=== PATIENT | female | born 1965 | race Caucasian/White ===

== ENCOUNTER 2021-12-04 23:59 | Inpatient (IN) ==
[2021-12-05] MEDS ORDERED: NITROGLYCERIN 0.4 MG TAB.SUBL SL ONE (00:07)
[2021-12-05 00:24] LABS: POC Calcium, Ionized 1.11 (1.16-1.32); POC Creatinine 6.9 (0.6-1.2)
[2021-12-05] MEDS: NITROGLYCERIN/D5W 25 MG/250 ML BOTTLE IV SCH (00:40)
[2021-12-05 00:43] LABS: Basophils # (Auto) 0.13 K/mcL (0.00-0.30); Basophils % (Auto) 0.7 % (0.0-2.0); Eosinophils % (Auto) 0.5 % (0.0-7.0); Hematocrit 34.8 % (34.1-44.9); Hemoglobin 10.3 g/dL (11.2-15.7); Lymphocytes # (Auto) 1.35 K/mcL (1.50-4.80); Lymphocytes % (Auto) 7.2 % (15.5-49.0); Mean Cell Volume 96.1 fL (80.0-100.0); Mean Corpuscular HGB Conc 29.6 g/dL (31.0-36.0); Mean Platelet Volume 9.8 fL (8.8-12.5); Monocytes # (Auto) 1.06 K/mcL (0.10-0.90); Monocytes % (Auto) 5.7 % (1.0-12.0); Platelet Count 320 K/mcL (140-440); RBC 3.62 M/mcL (3.59-5.38); WBC 18.7 K/mcL (4.5-11.0)
[2021-12-05] MEDS ORDERED: ASPIRIN 81 MG TAB.CHEW CHEWED ONE (00:43)
--- NOTE | 2021-12-05 02:52 | Emergency Department Note ---
SOB HPI General Chief Complaint: Shortness of Breath/Dyspnea Stated Complaint: cant breathe Time Seen by Provider: 12/05/21 00:04 Source: EMS Mode of arrival: EMS History of Present Illness HPI Narrative: Narrative: 56-year-old female end-stage renal disease on dialysis Saturday, history of opioid dependence, Crohn's disease presenting to the ED with severely worsening shortness of breath. Started earlier today but has been progressive throughout the day some intermittent wheeze and cough, no purulent sputum. No chest pain but does feel a bit tight, no new leg swelling. She is due for dialysis later today says she has not missed any dialysis. She denies any fever or URI symptoms. No new leg swelling. She was thinking she may be withdrawing from opiates. She says she used some heroin yesterday and then took Suboxone today and was worried that it may have caused some withdrawal. No nausea no vomiting no other substance use she says. EMS gave her a DuoNeb that helped a bit no other complaints. Related Data Home Medications Medication Instructions Recorded Confirmed furosemide 80 mg tablet 80 mg PO BID PRN 10/26/21 Previous Rx's Medication Instructions Recorded cholecalciferol (vitamin D3) 125 125 mcg PO QDAY #90 tabs 03/31/21 mcg (5,000 unit) tablet losartan 100 mg tablet 100 mg PO QDAY #90 tabs 03/31/21 allopurinol 100 mg tablet 100 mg PO .QOD #30 tabs 05/17/21 sevelamer carbonate 800 mg tablet 800 mg PO TIDWMEAL #90 tabs 05/23/21 (Renvela) vit B complex and vit C 1 tab PO QDAY #30 tabs 08/01/21 no.24-ferrous fum 66 mg-folic 1,000 mcg tablet (Nephron FA) amlodipine 10 mg tablet 10 mg PO QDAY HTN #30 tabs 08/15/21 hydralazine 25 mg tablet 25 mg PO BID #60 tabs 08/31/21 Allergies Allergy/AdvReac Type Severity Reaction Status Date / Time Sulfa (Sulfonamide Allergy Unknown Unknown Verified 10/26/21 14:02 Antibiotics) Review of Systems ROS ROS Narrative: Narrative: All systems ED: reviewed and negative except as stated. PFSH Narrative Patient History Narrative: Narrative: Medical/Surgical/Family History All Active Problems (Updated 12/05/21 @ 04:36 by Irving Ayala DO) Hypertensive emergency (Acute) Elevated troponin (Acute) End-stage renal disease (ESRD) (Acute) Acute respiratory failure with hypoxia (Acute) Elevated troponin (Acute) Anemia in end-stage renal disease (Acute) Hypertensive emergency (Acute) Ulcerative colitis (Chronic) Fatigue (Chronic) Body aches (Chronic) Hypertension (Chronic) Bilateral hearing loss (Chronic) Otosclerosis (Chronic) Conductive hearing loss (Chronic) Vasomotor rhinitis (Chronic) Sensorineural hearing loss (SNHL) (Chronic) ET (eustachian tube disorder) (Chronic) Pulmonary embolism (Chronic) Acute myocardial infarction (Chronic) Crohn's disease (Chronic) Secondary hyperparathyroidism of renal origin (Chronic) Vitamin D deficiency (Chronic) ESRD on hemodialysis (Chronic) Hyperphosphatemia (Chronic) Dependence on renal dialysis (Chronic) Generalized abdominal pain (Chronic Unknown) Other encephalopathy (Chronic) Other anxiety states (Chronic) Chronic renal failure (Chronic) Localized edema due to fluid overload (Chronic) AV graft malfunction (Acute) Metabolic acidosis, NAG, bicarbonate losses (Acute) Encounter for dialysis catheter care (Acute) ESRD (end stage renal disease) on dialysis (Acute) Medical History Acute myocardial infarction Bilateral hearing loss Body aches Chronic renal failure Conductive hearing loss Crohn's disease Dependence on renal dialysis ET (eustachian tube disorder) Fatigue Generalized abdominal pain (Unknown) Hypertension Other anxiety states Other encephalopathy Otosclerosis Pulmonary embolism Sensorineural hearing loss (SNHL) Ulcerative colitis Vasomotor rhinitis Surgical History History of ileostomy (~07/2009) History of thoracic aortic aneurysm repair (~02/2018) Stent Family History Unknown Bleeding disorder Clotting disorder Social History Smoking Status: Current every day smoker Alcohol Intake Frequency: does not drink Substance Use: does not use Exam Narrative Narrative: Narrative: Constitutional: normally developed, ill-appearing very hypertensive tachycardic almost 140 sinus on the monitor, she is tachypneic hypoxic. Afebrile. Head: Normocephalic, atraumatic, Eyes: No Icterus, ENT: Moist mucus membranes, Neck: Supple, positive JVD Cardiac: Tachycardic heart sounds, palpable peripheral pulses, trace peripheral edema. Left upper extremity dialysis access Pulmonary: Respiratory distress, hypoxia, very coarse breath sounds sporadic tra ce wheeze basilar rales throughout Gastrointestinal: Abdomen soft, non-distended, non-tender, Musculoskeletal: No gross deformities, well perfused Skin: warm, dry Neuro: Alert and oriented. Course Vital Signs Vital signs: Vital Signs Pulse Rate 134 H 12/05/21 00:11 Respiratory Rate 28 H 12/05/21 00:11 Blood Pressure 237/149 12/05/21 00:11 Pulse Oximetry (%) 94 12/05/21 00:11 Temperature 37.2 C 12/05/21 03:52 Pulse Rate 119 H 12/05/21 04:30 Respiratory Rate 31 H 12/05/21 04:30 Blood Pressure 168/125 12/05/21 04:16 Pulse Oximetry (%) 100 12/05/21 04:30 Oxygen Delivery Method 12/05/21 04:30 MDM MDM Narrative Medical decision making narrative: Narrative: Patient presents with severe shortness of breath she is very hypertensive tachycardic tachypneic hypoxic her lungs sound wet, she has got JVD, is a dialysis patient, work-up is initiated. She has no infectious complaints no chest pain We will place her on BiPAP. I did place a right upper extremity peripheral ultrasound-guided IV Chest x-ray per my preliminary interpretation diffuse haziness I suspect is pulmonary edema We will start patient on some nitro drip for suspected pulmonary edema, hypertensive emergency Twelve-lead EKG sinus tachycardia 132 OK, QRS, QTc within normal some occasional PVCs, no STEMI criteria. Does not appear hyperkalemic. COVID-negative CBC leukocytosis of 18 hemoglobin 10 VBG normal pH 7.32 normal PCO2 43, lactic acid 4.4 which I suspect is more likely due to prolonged hypoxia and respiratory distress less likely indicative of sepsis as she has no infectious complaints Electrolytes show her known ESRD BUN of 60 creatinine 6.9 with a normal potassium 5.0 glucose is 196 Initial troponin is elevated 0.7; I suspect this is demand ischemia from hypertensive emergency, volume overload, prolonged hypoxia and ESRD. Will trend. She has no STEMI criteria on her EKG and no active chest pain. We will give aspirin in the meantime, she is already on nitro drip Reevaluation feeling markedly improved on BiPAP on minimal settings, we are titrating nitro drip blood pressure slowly improving no new complaints Repeat troponin stable 0.[address] Schultz, patient can receive dialysis here later in the morning Spoke with hospitalist who accepts admission Critical Care Time Total CriticalCare time was greater than 60 minutes, excluding separately reportable procedures. There was a high probability of clinically significant/life threatening deterioration in the patient's condition which required my urgent intervention. Lab Data Result diagrams: 12/05/21 00:15 Labs: Lab Results 12/05/21 12/05/21 12/05/21 Range/Units 00:15 00:21 00:23 WBC 18.7 H (4.5-11.0) K/mcL RBC 3.62 (3.59-5.38) M/mcL Hgb 10.3 L (11.2-15.7) g/dL Hct 34.8 (34.1-44.9) % POC Hct 35.0 L (36-48) MCV 96.1 (80.0-100.0) fL MCH 28.5 (26.0-34.0) pg MCHC 29.6 L (31.0-36.0) g/dL RDW 15.0 H (11.5-14.5) % Plt Count 320 (140-440) K/mcL MPV 9.8 (8.8-12.5) fL Immature Gran % (Auto) 0.9 H (0.0-0.5) % Neut % (Auto) 85.0 H (38.0-78.0) % Lymph % (Auto) 7.2 L (15.5-49.0) % [place] % (Auto) 5.7 (1.0-12.0) % Eos % (Auto) 0.5 (0.0-7.0) % Baso % (Auto) 0.7 (0.0-2.0) % Lymph # (Auto) 1.35 L (1.50-4.80) K/mcL [place] # (Auto) 1.06 H (0.10-0.90) K/mcL Eos # (Auto) 0.10 (0.00-0.70) K/mcL Baso # (Auto) 0.13 (0.00-0.30) K/mcL Immature Gran # 0.16 H (0.00-0.05) K/mcl Absolute Neutrophils 15.92 H (1.80-8.00) K/mcL POC VBG pH (7.32-7.42) POC VBG pCO2 at Temp (41-51) POC VBG pO2 (25-40) POC VBG HCO3 (24-28) POC VBG Total CO2 (25-29) POC Venous O2 Sat (40-70) POC VBG Base Excess (-2-2) VBG Lactic Acid (0.5-2) POC Sodium 135 (133-145) POC Potassium 5.0 (3.3-5.1) POC Chloride 103 (96-108) POC Total CO2 21.0 L (22-30) POC BUN 60 H (6-20) POC Creatinine 6.9 H* (0.6-1.2) POC Glucose 196 H (70-105) POC WB Ioniz Calcium 1.11 L (1.16-1.32) POC Troponin I 0.70 H (0.02-0.08) 12/05/21 12/05/21 12/05/21 Range/Units 00:40 02:15 02:54 WBC (4.5-11.0) K/mcL RBC (3.59-5.38) M/mcL Hgb (11.2-15.7) g/dL Hct (34.1-44.9) % POC Hct (36-48) MCV (80.0-100.0) fL MCH (26.0-34.0) pg MCHC (31.0-36.0) g/dL RDW (11.5-14.5) % Plt Count (140-440) K/mcL MPV (8.8-12.5) fL Immature Gran % (Auto) (0.0-0.5) % Neut % (Auto) (38.0-78.0) % Lymph % (Auto) (15.5-49.0) % [place] % (Auto) (1.0-12.0) % Eos % (Auto) (0.0-7.0) % Baso % (Auto) (0.0-2.0) % Lymph # (Auto) (1.50-4.80) K/mcL [place] # (Auto) (0.10-0.90) K/mcL Eos # (Auto) (0.00-0.70) K/mcL Baso # (Auto) (0.00-0.30) K/mcL Immature Gran # (0.00-0.05) K/mcl Absolute Neutrophils (1.80-8.00) K/mcL POC VBG pH 7.32 (7.32-7.42) POC VBG pCO2 at Temp 43.2 (41-51) POC VBG pO2 29 (25-40) POC VBG HCO3 22.2 L (24-28) POC VBG Total CO2 23.0 L (25-29) POC Venous O2 Sat 51.0 (40-70) POC VBG Base Excess -4.0 L (-2-2) VBG Lactic Acid 4.4 H* 3.1 H (0.5-2) POC Sodium (133-145) POC Potassium (3.3-5.1) POC Chloride (96-108) POC Total CO2 (22-30) POC BUN (6-20) POC Creatinine (0.6-1.2) POC Glucose (70-105) POC WB Ioniz Calcium (1.16-1.32) POC Troponin I 0.68 H (0.02-0.08) ED POC Tests ED POC Tests: SAWYER - SARS Antigen Negative Discharge Plan Patient/Caregiver Discharge Instructions Pt seen by PRODUCT ARCHITECT/PA only: No Clinical Impression: Hypertensive emergency, Elevated troponin, End-stage renal disease (ESRD), Acute respiratory failure with hypoxia Patient Disposition: Xfer As Inpt ([facility]) Condition: Critical Discharge Date/Time: 12/05/21 03:41
--- NOTE | 2021-12-05 03:01 | XRay Report ---
CLINICAL INFORMATION: Dyspnea COMPARISON: 02/20/2021 TECHNIQUE: Portable FINDINGS: Heart is moderately enlarged. Endograft seen in the aortic arch as before. Thoracic aorta appears grossly normal in diameter on the basis of this portable film. The remaining mediastinum is unremarkable with accentuation due to right rotation. Pulmonary vessels are mildly congested and there is moderate interstitial edema throughout both lungs. Increased density in the right perihilar region noted. Small bilateral pleural effusions noted. IMPRESSION: Severe CHF. Increased right perihilar density is likely atypical edema distribution rather than superimposed pneumonia. Suggest two-view upright chest x-ray, following diuresis, to reassess potential right perihilar infiltrate Interpreted and Authenticated by: Rickie Fierro 12/05/21
[2021-12-05] MEDS ORDERED: ONDANSETRON 4 MG/2 ML VIAL IV PRN (03:18)
[2021-12-05] MEDS ORDERED: NALOXONE HCL 0.4 MG/ML VIAL IV PRN (03:18)
[2021-12-05] MEDS ORDERED: morphine 2 MG/ML VIAL IV PRN (03:18)
[2021-12-05] MEDS: 0.9 % SODIUM CHLORIDE 250 ML IV SCH ×2 (04:08→14:00)
[2021-12-05] MEDS ORDERED: DEXTROSE 50% 50 ML VIAL IV PRN (04:14)
[2021-12-05] MEDS ORDERED: DEXTROSE 31 GM ORAL.SUSP PO PRN (04:14)
[2021-12-05] MEDS ORDERED: NITROGLYCERIN 0.4 MG TAB.SUBL SL PRN (04:14)
[2021-12-05] MEDS ORDERED: guaiFENesin/DEXTROMETHORPHAN ORAL SOL PO PRN (04:14)
--- NOTE | 2021-12-05 04:14 | Internal Med History&Physical ---
HPI History of Present Illness Patient information: Note initiated : 12/05/21 at 4:14 am Service Date, if different from initiated Date: [] Patient: Mindy Black a 56 y/o F admitted on 12/05/21 for cant breathe. Chief Complaint: [shortness of breath] Chief complaint: shortness of breath History of present illness: Ms. Black is a 56 year old F history of hypertensions associated with end- stage renal disease on hemodialysis via left arm AV graft, presenting with 1 day history of acute onset shortness of breath, cough, wheezing, chest tightness/pain. She is a hemodialysis patient's with the scheduled Saturday with last hemodialysis sections last Saturday. She had acute onset symptoms of shortness of breath, chest tightness, cough, wheezing, onset just prior to ED presentation hours ago. Denies any fever chills or diaphoresis. She stated that she is compliant to her medications including oral antihypertensive with amlodipine, hydralazine, losartan. Vital signs at ED presentation significant for tachycardia and tachypnea heart rate and rate of breathing up to 120s and low 30s, respectively. Labs significant for leukocytosis WBC 18.7, serum creatinine level 6.9. Lactic acid 3.1. Troponin 0.7, 0.68. EKG no acute ischemia. Chest x-ray showing bilateral pulmonary edema's. Constitutional Constitutional: Absent chills, excessive sweating, fatigue, fever(s) or weakness Additional comments: insomnia EENT Eyes: Absent blurry vision, change in vision, loss of vision or other visual disturbances Ears: Absent decreased hearing or tinnitus Nose, mouth and throat: Absent abnormal hearing, dry mouth, headache(s), nasal congestion or sore throat Cardiovascular Cardiovascular: Present chest pain; Absent chest pain at rest, edema, irregular heart rhythm or palpatations Respiratory Respiratory: Present cough, dyspnea and wheezing Gastrointestinal Gastrointestinal: Absent abdominal pain, constipation, diarrhea, nausea or vomiting Musculoskeletal Musculoskeletal: Absent back pain, deformity, limited range of motion, muscle cramps, muscle weakness or numbness Integumentary Integumentary: Absent lesions, rash or wounds Neurological Neurological: Absent focal weakness, headache(s) or numbness Psychiatric Psychiatric: Absent anxiety, depression or hallucinations PFSH PFSH All Active Problems (Updated 12/05/21 @ 04:21 by Ritesh Calvert MD) Elevated troponin (Acute) Anemia in end-stage renal disease (Acute) Hypertensive emergency (Acute) Ulcerative colitis (Chronic) Fatigue (Chronic) Body aches (Chronic) Hypertension (Chronic) Bilateral hearing loss (Chronic) Otosclerosis (Chronic) Conductive hearing loss (Chronic) Vasomotor rhinitis (Chronic) Sensorineural hearing loss (SNHL) (Chronic) ET (eustachian tube disorder) (Chronic) Pulmonary embolism (Chronic) Acute myocardial infarction (Chronic) Crohn's disease (Chronic) Secondary hyperparathyroidism of renal origin (Chronic) Vitamin D deficiency (Chronic) ESRD on hemodialysis (Chronic) Hyperphosphatemia (Chronic) Dependence on renal dialysis (Chronic) Generalized abdominal pain (Chronic Unknown) Other encephalopathy (Chronic) Other anxiety states (Chronic) Chronic renal failure (Chronic) Localized edema due to fluid overload (Chronic) AV graft malfunction (Acute) Metabolic acidosis, NAG, bicarbonate losses (Acute) Encounter for dialysis catheter care (Acute) ESRD (end stage renal disease) on dialysis (Acute) Medical History Acute myocardial infarction Bilateral hearing loss Body aches Chronic renal failure Conductive hearing loss Crohn's disease Dependence on renal dialysis ET (eustachian tube disorder) Fatigue Generalized abdominal pain (Unknown) Hypertension Other anxiety states Other encephalopathy Otosclerosis Pulmonary embolism Sensorineural hearing loss (SNHL) Ulcerative colitis Vasomotor rhinitis Surgical History History of ileostomy (~07/2009) History of thoracic aortic aneurysm repair (~02/2018) Stent Family History Unknown Bleeding disorder Clotting disorder Social History (Updated 04/14/21 @ 10:22 by Lesly Santiago) marital status: occupational status: unemployed smoking status: Current every day smoker tobacco type: cigarettes per day: 10 alcohol intake frequency: does not drink substance use type: does not use MEDS/ALLERGIES Home Medications and Allergies Home Medications Medication Instructions Recorded Confirmed Type cholecalciferol (vitamin D3) 125 125 mcg PO QDAY #90 tabs 03/31/21 10/26/21 Rx mcg (5,000 unit) tablet losartan 100 mg tablet 100 mg PO QDAY #90 tabs 03/31/21 10/26/21 Rx allopurinol 100 mg tablet 100 mg PO .QOD #30 tabs 05/17/21 10/26/21 Rx sevelamer carbonate 800 mg tablet 800 mg PO TIDWMEAL #90 tabs 05/23/21 10/26/21 Rx (Renvela) vit B complex and vit C 1 tab PO QDAY #30 tabs 08/01/21 10/26/21 Rx no.24-ferrous fum 66 mg-folic 1,000 mcg tablet (Nephron FA) amlodipine 10 mg tablet 10 mg PO QDAY HTN #30 tabs 08/15/21 10/26/21 Rx hydralazine 25 mg tablet 25 mg PO BID #60 tabs 08/31/21 10/26/21 Rx furosemide 80 mg tablet 80 mg PO BID PRN 10/26/21 History Allergies Allergy/AdvReac Type Severity Reaction Status Date / Time Sulfa (Sulfonamide Allergy Unknown Unknown Verified 10/26/21 14:02 Antibiotics) EXAM Constitutional Vitals: Temp Pulse Resp BP Pulse Ox O2 Del Method 36.2 C 119 H 32 H 170/128 100 12/05/21 00:19 12/05/21 03:55 12/05/21 03:55 12/05/21 03:25 12/05/21 03:55 12/05/21 01:45 General appearance: cooperative, mild distress and no acute distress Head Head exam: Present atraumatic and normocephalic Eye Eye exam: Present EOMI and PERRL ENT ENT exam: Present mucous membranes moist and normal external ear exam; Absent normal exam Additional comments: Bilateral hearing loss BiPAP in place Neck Neck exam: Present normal inspection; Absent lymphadenopathy, tenderness or thyromegaly Respiratory Respiratory exam: Present decreased breath sounds and rhonchi; Absent accessory muscle use, respiratory distress or wheezes Cardiovascular Cardiovascular exam: Present normal rate and rhythm; Absent JVD GI/Abdominal GI/Abdominal exam: Present normal bowel sounds and soft; Absent organomegaly or tenderness Extremities Exam Extremities exam: Present full ROM, normal capillary refill and normal inspection; Absent tenderness Neurological Exam Neurological exam: Present alert, CN II-XII intact and oriented X3; Absent motor sensory deficit Psychiatric Psychiatric exam: Present normal affect and normal mood; Absent anxious or d epressed Skin Skin exam: Present dry and intact DATA Data Completed and Pending Labs: Labs from last 24 hours 12/05/21 12/05/21 12/05/21 02:54 02:15 00:40 WBC RBC Hgb Hct POC Hct MCV MCH MCHC RDW Plt Count MPV Immature Gran % (Auto) Neut % (Auto) Lymph % (Auto) [place] % (Auto) Eos % (Auto) Baso % (Auto) Lymph # (Auto) [place] # (Auto) Eos # (Auto) Baso # (Auto) Immature Gran # Absolute Neutrophils POC VBG pH 7.32 POC VBG pCO2 at Temp 43.2 POC VBG pO2 29 POC VBG HCO3 22.2 L POC VBG Total CO2 23.0 L POC Venous O2 Sat 51.0 POC VBG Base Excess -4.0 L VBG Lactic Acid 3.1 H 4.4 H* POC Sodium POC Potassium POC Chloride POC Total CO2 POC BUN POC Creatinine POC Glucose POC WB Ioniz Calcium POC Troponin I 0.68 H 12/05/21 12/05/21 12/05/21 00:23 00:21 00:15 WBC 18.7 H RBC 3.62 Hgb 10.3 L Hct 34.8 POC Hct 35.0 L MCV 96.1 MCH 28.5 MCHC 29.6 L RDW 15.0 H Plt Count 320 MPV 9.8 Immature Gran % (Auto) 0.9 H Neut % (Auto) 85.0 H Lymph % (Auto) 7.2 L [place] % (Auto) 5.7 Eos % (Auto) 0.5 Baso % (Auto) 0.7 Lymph # (Auto) 1.35 L [place] # (Auto) 1.06 H Eos # (Auto) 0.10 Baso # (Auto) 0.13 Immature Gran # 0.16 H Absolute Neutrophils 15.92 H POC VBG pH POC VBG pCO2 at Temp POC VBG pO2 POC VBG HCO3 POC VBG Total CO2 POC Venous O2 Sat POC VBG Base Excess VBG Lactic Acid POC Sodium 135 POC Potassium 5.0 POC Chloride 103 POC Total CO2 21.0 L POC BUN 60 H POC Creatinine 6.9 H* POC Glucose 196 H POC WB Ioniz Calcium 1.11 L POC Troponin I 0.70 H A/P Assessment and plan (1) Hypertensive emergency: Status: Acute (2) Bilateral hearing loss: Status: Chronic (3) ESRD on hemodialysis: Status: Chronic (4) Anemia in end-stage renal disease: Status: Acute (5) Elevated troponin: Status: Acute Narrative A/P Narrative: Assessment and Plans: 1. Hypertensive emergency: Inpatient ICU with telemetry Consult show card letterer Dr. Schultz for hemodialysis Nitroglycerin drip Amlodipine Losartan Hydralazine BiPAP for respiratory failure 2. ESRD on hemodialysis: Consult show card letterer Dr. Schultz for hemodialysis 3. Anemia in ESRD: cbc w/ auto diff in the morning to trend H/H 4. Elevated troponin: DDx: Demand ischemic, impaired renal clearance, ACS ECG no signs of acute ischemia Serial troponin GI ppx: not currently indicated DVT ppx: Heparin Code status: Full Prognosis: extremely guarded Disposition: inpatient ICU Critical Care Time: 60min Time Spent With Patient Time: Total time spent is greater than 50% in coordination of care (as documented) at patient's floor/unit and/or counseling patient: Total time spent with greater than 50% in coordination of care (as documented) at patient's floor/unit and/or counseling patient:: 50 - 70 minutes Critical Care Time: Yes Total Critical Care Time: 60
[2021-12-05] MEDS ORDERED: ALLOPURINOL 100 MG TABLET PO SCH (04:15)
[2021-12-05] MEDS: morphine 2 MG/ML VIAL IV PRN ×4 (04:44→20:28)
[2021-12-05] MEDS: 0.9 % SODIUM CHLORIDE 10 ML SYRINGE IV SCH ×3 (04:44→21:44)
[2021-12-05] MEDS ORDERED: morphine 2 MG/ML VIAL ONE (04:53)
--- NOTE | 2021-12-05 06:43 | Nephrology Consult Note ---
HPI Data of Consult Consult date: 12/05/21 Requesting physician: Irving Ayala Primary Care Provider: Levy Pena DO Consult Narrative Chief complaint: Shortness of breath Reason for consult: End stage renal disease on hemodialysis History of present illness: Mindy Black is a 56-year-old female with end stage renal disease on hemod ialysis, chronic anemia due to ESRD, hypertension, diabetes mellitus type 2 admitted on 12/05/21. She presented to the ED with severely worsening shortness of breath. Started earlier today but has been progressive throughout the day. She stated some intermittent wheeze and cough, no purulent sputum, no chest pain, no new leg swelling. She did not miss any dialysis. In ED, CXR reported severe CHF. Covis was negative. BP was high. She was started on nitro drip, BIPAP and admitted. Nephrology consultation was requested for end stage renal disease. cc:: CC: Ritesh Calvert MD Constitutional Constitutional: Present fatigue and weakness EENT Nose, mouth and throat: Absent nasal discharge or sore throat Cardiovascular Cardiovascular: Absent chest pain or palpatations Respiratory Respiratory: Present dyspnea; Absent hemoptysis Gastrointestinal Gastrointestinal: Absent diarrhea or nausea Genitourinary Genitourinary: Absent dysuria or hematuria Musculoskeletal Musculoskeletal: Absent joint swelling Integumentary Integumentary: Absent rash or wounds Neurological Neurological: Present weakness; Absent confusion Psychiatric Psychiatric: Absent anxiety or panic attacks Hematologic/Lymphatic Hematologic/Lymphatic: Absent easy bleeding or easy bruising Allergic/Immunologic Allergic/Immunologic: Absent tongue swelling or uticaria PFSH PFSH All Active Problems (Updated 12/05/21 @ 06:37 by Randy Schultz MD) Other fluid overload (Acute) Hypertensive emergency (Acute) Elevated troponin (Acute) End-stage renal disease (ESRD) (Acute) Acute respiratory failure with hypoxia (Acute) Elevated troponin (Acute) Anemia in end-stage renal disease (Acute) Hypertensive emergency (Acute) Ulcerative colitis (Chronic) Fatigue (Chronic) Body aches (Chronic) Hypertension (Chronic) Bilateral hearing loss (Chronic) Otosclerosis (Chronic) Conductive hearing loss (Chronic) Vasomotor rhinitis (Chronic) Sensorineural hearing loss (SNHL) (Chronic) ET (eustachian tube disorder) (Chronic) Pulmonary embolism (Chronic) Acute myocardial infarction (Chronic) Crohn's disease (Chronic) Secondary hyperparathyroidism of renal origin (Chronic) Vitamin D deficiency (Chronic) ESRD on hemodialysis (Chronic) Hyperphosphatemia (Chronic) Dependence on renal dialysis (Chronic) Generalized abdominal pain (Chronic Unknown) Other encephalopathy (Chronic) Other anxiety states (Chronic) Chronic renal failure (Chronic) Localized edema due to fluid overload (Chronic) AV graft malfunction (Acute) Metabolic acidosis, NAG, bicarbonate losses (Acute) Encounter for dialysis catheter care (Acute) ESRD (end stage renal disease) on dialysis (Acute) Medical History Acute myocardial infarction Bilateral hearing loss Body aches Chronic renal failure Conductive hearing loss Crohn's disease Dependence on renal dialysis ET (eustachian tube disorder) Fatigue Generalized abdominal pain (Unknown) Hypertension Other anxiety states Other encephalopathy Otosclerosis Pulmonary embolism Sensorineural hearing loss (SNHL) Ulcerative colitis Vasomotor rhinitis Surgical History History of ileostomy (~07/2009) History of thoracic aortic aneurysm repair (~02/2018) Stent Family History Unknown Bleeding disorder Clotting disorder Social History (Updated 04/14/21 @ 10:22 by Lesly Santiago) marital status: occupational status: unemployed smoking status: Current every day smoker tobacco type: cigarettes per day: 10 alcohol intake frequency: does not drink substance use type: does not use MEDS/ALLERGIES Home Medications and Allergies Home Medications Medication Instructions Recorded Confirmed Type losartan 100 mg tablet 100 mg PO QDAY #90 tabs 03/31/21 12/05/21 Rx furosemide 80 mg tablet 80 mg PO DAILY 10/26/21 12/05/21 History amlodipine 5 mg tablet 1 tab PO QDAY 12/05/21 12/05/21 History calcium carbonate 200 mg calcium 600 mg PO TIDWMEAL 12/05/21 12/05/21 History (500 mg) chewable tablet (Tums) hydralazine 50 mg tablet 50 mg PO BID 12/05/21 12/05/21 History metoprolol tartrate 50 mg tablet 50 mg PO BID 12/05/21 12/05/21 History Allergies Allergy/AdvReac Type Severity Reaction Status Date / Time Sulfa (Sulfonamide Allergy Unknown Unknown Verified 10/26/21 14:02 Antibiotics) Physical Examination Vital Signs Vital signs: Temp Pulse Resp BP Pulse Ox O2 Del Method 98.9 F 116 H 16 164/115 99 12/05/21 03:52 12/05/21 06:00 12/05/21 06:00 12/05/21 06:00 12/05/21 06:00 12/05/21 06:00 General Appearance General appearance: fatigue EENT EENT: mucous membranes dry Neck Neck: JVD Respiratory Respiratory: rales Cardiovascular Cardiology: edema, regular rate and regular rhythm Gastrointestinal Gastrointestinal: no tenderness and no guarding Integumentary Integumentary: no rash and warm and dry Neurologic Neurologic: no focal deficit and alert and oriented x3 Musculoskeletal Musculoskeletal: no deformities Psychiatric Psychiatric: mood/affect appropriate and cooperative Results Lab Results Result Diagrams: 12/05/21 00:15 A/P Assessment and plan (1) ESRD on hemodialysis: Assessment and plan: Mindy Black is a 56-year-old female with end stage renal disease on hemodialysis, chronic anemia due to ESRD, hypertension, diabetes mellitus type 2 admitted on 12/05/21. She presented to the ED with severely worsening shortness of breath. Started earlier today but has been progressive throughout the day. She stated some intermittent wheeze and cough, no purulent sputum, no chest pain, no new leg swelling. She did not miss any dialysis. In ED, CXR reported severe CHF. Covis was negative. BP was high. She was started on nitro drip, BIPAP and admitted. Nephrology consultation was requested for end stage renal disease. End stage renal disease on hemodialysis. Acute pulmonary edema and uncontrolled hypertension due to fluid overload. Chronic anemia due to ESRD. AV fistula. Recommendations/Plan: Hemodialysis WILIAN for 3 hours and 3 kg UF target. The patient seen and evaluated during hemodialysis at 10;55. Tolerating well so far. Anticipate HD with UF need tomorrow. Diet renal with 1200 ml/day fluid restriction. Status: Chronic Time Spent With Patient Time: Total time spent is greater than 50% in coordination of care (as documented) at patient's floor/unit and/or counseling patient:
[2021-12-05] MEDS: INSULIN LISPRO 1 UNIT/0.01 ML UNIT SQ SCH ×4 (07:34→21:51)
[2021-12-05] MEDS ORDERED: PROMETHAZINE 25 MG/ML VIAL IV PRN (07:38)
[2021-12-05] MEDS: HEPARIN 5,000 UNIT/ML VIAL SQ SCH ×2 (07:41→21:44)
[2021-12-05] MEDS: DOCUSATE SODIUM 100 MG CAPSULE PO SCH ×2 (07:41→21:43)
--- NOTE | 2021-12-05 07:51 | EKG ---
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
[2021-12-05] MEDS: VITAMIN B COMPLEX 1 CAPSULE PO SCH (07:55)
[2021-12-05] MEDS: VITAMIN D3 125 MCG TABLET PO SCH (07:55)
[2021-12-05] MEDS: LORazepam 0.5 MG TABLET PO PRN ×2 (07:57→21:43)
[2021-12-05] MEDS ORDERED: SEVELAMER 800 MG TABLET PO SCH (08:00)
[2021-12-05] MEDS ORDERED: SENNOSIDES 1 TABLET PO PRN (08:07)
[2021-12-05] MEDS ORDERED: LOSARTAN 50 MG TABLET PO SCH (09:00)
[2021-12-05] MEDS ORDERED: amLODIPine 10 MG TABLET PO SCH (09:00)
[2021-12-05] MEDS ORDERED: hydrALAZINE 25 MG TABLET PO SCH (09:00)
--- NOTE | 2021-12-05 09:20 | XRay Report ---
CLINICAL INFORMATION: Dyspnea COMPARISON: 02/20/2021 and 12/05/2021 TECHNIQUE: AP portable and lateral FINDINGS: Heart shows slight decrease in size but remains mildly enlarged. Endograft in the aortic arch again noted. Mediastinum is unremarkable. The pulmonary vasculature have returned to near-normal in caliber. Interstitial edema has improved moderately. Airspace disease right perihilar region has improved dramatically indicating this was likely edema rather than superimposed infiltrate. There is moderate residual edema in the right base. Small bilateral pleural effusions seen on lateral view IMPRESSION: Marked improvement in CHF pattern with moderate residual interstitial edema-particularly in the right base. A superimposed right basilar pneumonia is not excluded Interpreted and Authenticated by: Rickie Fierro 12/05/21
[2021-12-05] MEDS: CALCIUM CARBONATE 500 MG TAB.CHEW CHEWED SCH ×2 (13:15→17:20)
[2021-12-05] MEDS: cefTRIAXone 1 GM VIAL IV SCH (15:21)
[2021-12-05] MEDS: AZITHROMYCIN 500 MG in DEXTROSE 5% IN WATER 250 ML IV SCH (16:26)
[2021-12-05] MEDS: METOPROLOL TARTRATE 50 MG TABLET PO SCH (21:43)
[2021-12-05] MEDS: traZODone HCL 50 MG TABLET PO PRN (21:44)
[2021-12-05] MEDS: hydrALAZINE 25 MG TABLET PO SCH (21:44)
[2021-12-06] MEDS: NITROGLYCERIN/D5W 25 MG/250 ML BOTTLE IV SCH
[2021-12-06] MEDS: morphine 2 MG/ML VIAL IV PRN ×3 (04:05→20:20)
[2021-12-06] MEDS: LORazepam 0.5 MG TABLET PO PRN ×2 (04:08→16:04)
[2021-12-06 06:54] LABS: Basophils # (Auto) 0.07 K/mcL (0.00-0.30); Basophils % (Auto) 0.8 % (0.0-2.0); Eosinophils # (Auto) 0.22 K/mcL (0.00-0.70); Eosinophils % (Auto) 2.4 % (0.0-7.0); Hematocrit 30.6 % (34.1-44.9); Hemoglobin 9.5 g/dL (11.2-15.7); Lymphocytes # (Auto) 0.43 K/mcL (1.50-4.80); Lymphocytes % (Auto) 4.7 % (15.5-49.0); Mean Cell Volume 92.2 fL (80.0-100.0); Mean Platelet Volume 9.5 fL (8.8-12.5); Monocytes # (Auto) 0.79 K/mcL (0.10-0.90); Monocytes % (Auto) 8.7 % (1.0-12.0); Platelet Count 241 K/mcL (140-440); RBC 3.32 M/mcL (3.59-5.38); WBC 9.1 K/mcL (4.5-11.0)
--- NOTE | 2021-12-06 07:11 | Nephrology Progress Note ---
SUBJECTIVE Subjective Patient information: Note initiated : 12/06/21 at 7:09 am Patient: Mindy Black 56 y/o F admitted on 12/05/21 for cant breathe. Chief Complaint: Shortness of breath Pertinent ROS: Shortness of breath Weakness Constitutional Vitals: Vital Signs Temp Pulse Resp BP Pulse Ox O2 Del Method O2 Flow Rate 98.3 F 104 H 23 H 168/96 97 1 12/06/21 04:01 12/06/21 06:01 12/06/21 06:01 12/06/21 06:01 12/06/21 06:01 12/06/21 06:01 12/06/21 06:01 Period Temp Pulse Resp BP Sys/Stevens Pulse Ox O2 Del Method O2 Flow Rate Last 24 Hr 96.6 F-100.0 F 99-132 14-24 114-169/77-133 87-99 BiPAP-Nasal Cannula 1-2 Intake and Output 12/05/21 12/06/21 12/06/21 21:59 05:59 13:59 Intake Total 300 Balance 300 Weight 122 lb 6.4 oz Intake & Output: Intake & Output 12/05/21 12/06/21 12/06/21 21:59 05:59 13:59 Intake Total 300 Balance 300 Weight 122 lb 6.4 oz Intake: IV 250 Zithromax 500 mg In Dextrose 5% 250 in Water 250 ml @ 250 mls/hr IV Q24H [facility] Rx#:[id number] Oral 50 Other: Meal Dinner Percent of Meal Consumed 25% Feeding Ability Assist with Tray Set Up # Bowel Movements 2 General appearance: cooperative and no acute distress Head Head exam: Present normal inspection Eye Eye exam: Present normal appearance ENT ENT exam: Present mucous membranes moist Respiratory Respiratory exam: Absent respiratory distress Cardiovascular Cardiovascular exam: Present normal rate and rhythm GI/Abdominal GI/Abdominal exam: Present soft; Absent tenderness Extremities Exam Extremities exam: Absent joint swelling or pedal edema Neurological Exam Neurological exam: Present alert and oriented X3 Psychiatric Psychiatric exam: Present normal affect and normal mood Skin Skin exam: Present warm; Absent rash A/P Assessment and plan (1) ESRD on hemodialysis: Assessment and plan: Mindy Black is a 56-year-old female with end stage renal disease on hemodi alysis, chronic anemia due to ESRD, hypertension, diabetes mellitus type 2 admitted on 12/05/21. She presented to the ED with severely worsening shortness of breath. Started earlier today but has been progressive throughout the day. She stated some intermittent wheeze and cough, no purulent sputum, no chest pain, no new leg swelling. She did not miss any dialysis. In ED, CXR reported severe CHF. Covis was negative. BP was high. She was started on nitro drip, BIPAP and admitted. Nephrology consultation was requested for end stage renal disease. End stage renal disease on hemodialysis. Acute pulmonary edema and uncontrolled hypertension due to fluid overload. Chronic anemia due to ESRD. AV fistula. PROGRESS HD on 12/05/21 for 3 hours and 2.5 kg UF. Recommendations/Plan: Hemodialysis with PUF today for 2 hours and 2 kg UF target. The patient seen and evaluated during dialysis at 11:20. Tolerating well. Diet renal with 1200 ml/day fluid restriction. Status: Chronic Time Spent With Patient Time: Total time spent is greater than 50% in coordination of care (as documented) at patient's floor/unit and/or counseling patient:
[2021-12-06 07:16] LABS: ALT/SGPT 12 U/L (<40); AST/SGOT 20 U/L (<32); Albumin 3.1 gm/dL (3.2-5.2); Albumin/Globulin Ratio 0.7 (1.0-2.3); Alkaline Phosphatase 159 U/L (39-117); Bilirubin,Total 0.3 mg/dL (0.1-1.0); Blood Urea Nitrogen 32 mg/dL (6-20); Calcium 9.5 mg/dL (8.6-10.4); Carbon Dioxide 25 mmol/L (22-30); Chloride 92 mmol/L (96-108); Globulin 4.3 gm/dL (2.2-3.7); Glomerular Filtration Rate 10; Glucose 95 mg/dL (70-105); Phosphorous 5.3 mg/dL (2.5-4.5)
[2021-12-06] MEDS: 0.9 % SODIUM CHLORIDE 10 ML SYRINGE IV SCH ×3 (07:43→20:20)
[2021-12-06] MEDS: INSULIN LISPRO 1 UNIT/0.01 ML UNIT SQ SCH ×4 (07:53→20:22)
[2021-12-06] MEDS: VITAMIN D3 125 MCG TABLET PO SCH (08:57)
[2021-12-06] MEDS: VITAMIN B COMPLEX 1 CAPSULE PO SCH (08:57)
[2021-12-06] MEDS ORDERED: ALLOPURINOL 100 MG TABLET PO SCH (09:00)
[2021-12-06] MEDS: cefTRIAXone 1 GM VIAL IV SCH (09:18)
[2021-12-06] MEDS: amLODIPine 5 MG TABLET PO SCH (09:19)
[2021-12-06] MEDS: HEPARIN 5,000 UNIT/ML VIAL SQ SCH ×2 (09:19→20:20)
[2021-12-06] MEDS: hydrALAZINE 25 MG TABLET PO SCH ×2 (09:19→20:21)
[2021-12-06] MEDS: CALCIUM CARBONATE 500 MG TAB.CHEW CHEWED SCH ×3 (12:02→17:46)
[2021-12-06] MEDS: AZITHROMYCIN 500 MG in DEXTROSE 5% IN WATER 250 ML IV SCH (12:07)
[2021-12-06] MEDS: DOCUSATE SODIUM 100 MG CAPSULE PO SCH ×2 (12:08→20:20)
--- NOTE | 2021-12-06 12:59 | Internal Med Progress Note ---
SUBJECTIVE Subjective Patient information: Note initiated : 12/06/21 at 12:51 pm Service Date, if different from initiated Date: [] Patient: Mindy Black a 56 y/o F admitted on 12/05/21 for cant breathe. Chief Complaint: [] Interval history: Ms. Black is a 56 year old F history of hypertensions associated with end- stage renal disease on hemodialysis via left arm AV graft, presenting with 1 day history of acute onset shortness of breath, cough, wheezing, chest tightness/pain. She is a hemodialysis patient's with the scheduled Saturday with last hemodialysis sections last Saturday. She had acute onset symptoms of shortness of breath, chest tightness, cough, wheezing, onset just prior to ED presentation hours ago. Denies any fever chills or diaphoresis. She stated that she is compliant to her medications including oral antihypertensive with amlodipine, hydralazine, losartan. Vital signs at ED presentation significant for tachycardia and tachypnea heart rate and rate of breathing up to 120s and low 30s, respectively. Labs significant for leukocytosis WBC 18.7, serum creatinine level 6.9. Lactic acid 3.1. Troponin 0.7, 0.68. EKG no acute ischemia. Chest x-ray showing bilateral pulmonary edema's. 12/06: Afebrile overnight. She is currently on 1 L/min of nasal cannula oxygen's. Nitroglycerin drip has been off since yesterday around noon time. Blood culture growing gram-positive cocci in clusters x2. Patient is lethargic and sleepy but COWS score 0. Repeat blood culture x2 tomorrow on 12/07. Performed 2D echocardiogram to rule out any endocardial vegetations. Patient's usual dialysis schedule Saturday. We will continue current course of antibiotics with Rocephin and Zithromax. By Saturday 8 patient's repeat blood culture no growth for 48 hours, she will be discharged on Saturday and go back to her regular hemodialysis sections in Saturday afternoon. Constitutional Vitals: Vital Signs Temp Pulse Resp BP Pulse Ox O2 Del Method O2 Flow Rate 35.7 C L 90 29 H 98/68 98 1 12/06/21 12:01 12/06/21 12:30 12/06/21 12:30 12/06/21 12:30 12/06/21 12:30 12/06/21 12:30 12/06/21 12:30 Period Temp Pulse Resp BP Sys/Stevens Pulse Ox O2 Del Method O2 Flow Rate Last 24 Hr 35.7 C-37.8 C 77-132 14-32 89-168/57-133 87-98 BiPAP-Nasal Cannula 1-2 Intake and Output 12/05/21 12/06/21 12/06/21 21:59 05:59 13:59 Intake Total 300 Output Total 3400 Balance 300 -3400 Weight 55.52 kg Intake & Output: Intake & Output 12/05/21 12/06/21 12/06/21 21:59 05:59 13:59 Intake Total 300 Output Total 3400 Balance 300 -3400 Weight 55.52 kg Intake: IV 250 Zithromax 500 mg In Dextrose 5% 250 in Water 250 ml @ 250 mls/hr IV Q24H [facility] Rx#:[id number] Oral 50 Output: Hemodialysis UF 3400 Other: Meal Dinner Percent of Meal Consumed 25% Feeding Ability Assist with Tray Set Up # Bowel Movements 2 Exam: Lethargic Head Head exam: Present atraumatic and normal inspection Eye Eye exam: Present normal appearance ENT ENT exam: Present mucous membranes moist, normal exam and normal external ear exam Additional comments: Nasal cannula in place Neck Neck exam: Present normal inspection Respiratory Respiratory exam: Present normal respiratory exam Cardiovascular Cardiovascular exam: Present normal rate and rhythm GI/Abdominal GI/Abdominal exam: Present normal bowel sounds Extremities Exam Additional comments: AV graft left arm Back Exam Back exam: Present normal inspection Neurological Exam Additional comments: Lethargic Skin Skin exam: Present intact and warm OBJ DATA Labs CBC & Chem 7: 12/06/21 05:38 12/06/21 05:38 Labs: Abnormal Lab Results 12/06/21 12/06/21 12/05/21 05:38 05:38 06:13 WBC RBC 3.32 L Hgb 9.5 L Hct 30.6 L POC Hct MCHC RDW 15.0 H Immature Gran % (Auto) Neut % (Auto) 83.0 H Lymph % (Auto) 4.7 L Lymph # (Auto) 0.43 L Evangeline # (Auto) Immature Gran # Absolute Neutrophils POC VBG HCO3 POC VBG Total CO2 POC VBG Base Excess VBG Lactic Acid 2.3 H Sodium 131 L Chloride 92 L POC Total CO2 POC BUN BUN 32 H Creatinine 4.4 H POC Creatinine POC Glucose POC WB Ioniz Calcium Phosphorus 5.3 H Alkaline Phosphatase 159 H Troponin T Albumin 3.1 L Globulin 4.3 H Albumin/Globulin Ratio 0.7 L POC Troponin I 12/05/21 12/05/21 12/05/21 06:13 02:54 02:15 WBC RBC Hgb Hct POC Hct MCHC RDW Immature Gran % (Auto) Neut % (Auto) Lymph % (Auto) Lymph # (Auto) Evangeline # (Auto) Immature Gran # Absolute Neutrophils POC VBG HCO3 POC VBG Total CO2 POC VBG Base Excess VBG Lactic Acid 3.1 H Sodium Chloride POC Total CO2 POC BUN BUN Creatinine POC Creatinine POC Glucose POC WB Ioniz Calcium Phosphorus Alkaline Phosphatase Troponin T 0.45 H* Albumin Globulin Albumin/Globulin Ratio POC Troponin I 0.68 H 12/05/21 12/05/21 12/05/21 00:40 00:23 00:21 WBC RBC Hgb Hct POC Hct 35.0 L MCHC RDW Immature Gran % (Auto) Neut % (Auto) Lymph % (Auto) Lymph # (Auto) Evangeline # (Auto) Immature Gran # Absolute Neutrophils POC VBG HCO3 22.2 L POC VBG Total CO2 23.0 L POC VBG Base Excess -4.0 L VBG Lactic Acid 4.4 H* Sodium Chloride POC Total CO2 21.0 L POC BUN 60 H BUN Creatinine POC Creatinine 6.9 H* POC Glucose 196 H POC WB Ioniz Calcium 1.11 L Phosphorus Alkaline Phosphatase Troponin T Albumin Globulin Albumin/Globulin Ratio POC Troponin I 0.70 H 12/05/21 00:15 WBC 18.7 H RBC Hgb 10.3 L Hct POC Hct MCHC 29.6 L RDW 15.0 H Immature Gran % (Auto) 0.9 H Neut % (Auto) 85.0 H Lymph % (Auto) 7.2 L Lymph # (Auto) 1.35 L Evangeline # (Auto) 1.06 H Immature Gran # 0.16 H Absolute Neutrophils 15.92 H POC VBG HCO3 POC VBG Total CO2 POC VBG Base Excess VBG Lactic Acid Sodium Chloride POC Total CO2 POC BUN BUN Creatinine POC Creatinine POC Glucose POC WB Ioniz Calcium Phosphorus Alkaline Phosphatase Troponin T Albumin Globulin Albumin/Globulin Ratio POC Troponin I Meds: Medications Albuterol/Ipratropium (Ipratropium/Albuterol 3 Ml Ampul.Neb) 3 ml NEB Q4HRT PRN PRN Reason: Wheezing Allopurinol (Allopurinol 100 Mg Tablet) 100 mg PO Q48@0900 [facility] Last Admin: 12/06/21 12:07 Dose: 100 mg Amlodipine Besylate (Amlodipine 5 Mg Tablet) 5 mg PO QDAY [facility] Last Admin: 12/06/21 09:19 Dose: 5 mg Calcium Carbonate/Glycine (Calcium Carbonate 500 Mg Tab.Chew) 500 mg CHEWED TIDCC [facility] Last Admin: 12/06/21 12:07 Dose: 500 mg Ceftriaxone Sodium (Ceftriaxone 1 Gm Vial) 1 gm IV Q24H [facility]; Protocol Last Admin: 12/06/21 09:18 Dose: 1 gm Dextrose (Dextrose 50% 50 Ml Vial) 0 ml IV UD PRN PRN Reason: Per Sliding Scale Diagnostic Test (Pha) (Accu-Chek 1 Each Strip) 1 each FS ACHS [facility] Last Admin: 12/06/21 12:03 Dose: 1 each Docusate Sodium (Docusate Sodium 100 Mg Capsule) 100 mg PO BID [facility] Last Admin: 12/06/21 12:08 Dose: Not Given Glucose (Dextrose 31 Gm Oral.Susp) 15 gm PO PRN PRN PRN Reason: Hypoglycemia Guaifenesin (Guaifenesin/Dextromethorphan Oral Wendy) 10 ml PO Q4HP PRN PRN Reason: Cough Heparin Sodium (Porcine) (Heparin 5,000 Unit/Ml Vial) 5,000 unit SQ Q12 [facility] Last Admin: 12/06/21 09:19 Dose: 5,000 unit Hydralazine HCl (Hydralazine 25 Mg Tablet) 50 mg PO BID [facility] Last Admin: 12/06/21 09:19 Dose: 50 mg Nitroglycerin/Dextrose (Nitroglycerin/D5w) 25 mg in 250 mls @ 3 mls/hr IV .Q24H [facility]; Protocol Last Admin: 12/06/21 00:00 Dose: Not Given Sodium Chloride (Sodium Chloride 0.9%) 250 mls @ 20 mls/hr IV .[id number] [facility] Last Admin: 12/06/21 00:00 Dose: Not Given Azithromycin 500 mg/ Dextrose 250 mls @ 250 mls/hr IV Q24H [facility]; Protocol Stop: 12/07/21 16:59 Last Admin: 12/06/21 12:07 Dose: 250 mls/hr Insulin Human Lispro (Insulin Lispro 1 Unit/0.01 Ml Unit) 0 unit SQ [facility]; Protocol Last Admin: 12/06/21 12:03 Dose: Not Given Lorazepam (Lorazepam 0.5 Mg Tablet) 0.5 mg PO Q4HP PRN PRN Reason: ANXIETY/SEDATION Last Admin: 12/06/21 04:08 Dose: 0.5 mg Metoprolol Tartrate (Metoprolol Tartrate 50 Mg Tablet) 50 mg PO BID [facility] Last Admin: 12/05/21 21:43 Dose: 50 mg Morphine Sulfate (Morphine 2 Mg/Ml Vial) 2 mg IV Q4HP PRN; Protocol PRN Reason: Per Pain Protocol Last Admin: 12/06/21 04:05 Dose: 2 mg Naloxone HCl (Naloxone Hcl 0.4 Mg/Ml Vial) 0.1 mg IV Q2MIN PRN PRN Reason: Opiate Reversal Nitroglycerin (Nitroglycerin 0.4 Mg Tab.Subl) 0.4 mg SL Q5M PRN PRN Reason: Chest Pain Ondansetron HCl (Ondansetron 4 Mg/2 Ml Vial) 4 mg IV Q4HP PRN; Protocol PRN Reason: Nausea And Vomiting Last Admin: 12/05/21 07:35 Dose: 4 mg Promethazine HCl (Promethazine 25 Mg/Ml Vial) 12.5 mg IV Q4HP PRN PRN Reason: Nausea And Vomiting Senna (Sennosides 1 Tablet) 1 tab PO DAILYP PRN PRN Reason: Constipation Sodium Chloride (0.9 % Sodium Chloride 10 Ml Syringe) 10 ml IV Q8 [facility] Last Admin: 12/06/21 07:43 Dose: 10 ml Trazodone HCl (Trazodone Hcl 50 Mg Tablet) 25 mg PO HSP PRN PRN Reason: Insomnia Last Admin: 12/05/21 21:44 Dose: 25 mg Vitamin B Complex (Vitamin B Complex 1 Capsule) 1 cap PO QDAY [facility] Last Admin: 12/06/21 08:57 Dose: Not Given Vitamin D (Vitamin D3 125 Mcg Tablet) 125 mcg PO QDAY [facility] Last Admin: 12/06/21 08:57 Dose: Not Given A/P Assessment and plan (1) Hypertensive emergency: Status: Acute (2) Bilateral hearing loss: Status: Chronic (3) ESRD on hemodialysis: Status: Chronic (4) Anemia in end-stage renal disease: Status: Acute (5) Elevated troponin: Status: Acute (6) Gram-positive cocci bacteremia: Status: Acute (7) Community acquired pneumonia: Status: Acute Narrative A/P Narrative: Assessment and Plans: 1. 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 We will continue current course of antibiotics with Rocephin and Zithromax. By Saturday 8 patient's repeat blood culture no growth for 48 hours, she will be discharged on Saturday and go back to her regular hemodialysis sections in Saturday. 2. ESRD on hemodialysis: Consult curer foam [employer] Dr. Schultz for hemodialysis Patient's usual dialysis schedule Saturday. We will continue current course of antibiotics with Rocephin and Zithromax. By Saturday 8 patient's repeat blood culture no growth for 48 hours, she will be discharged on Saturday and go back to her regular hemodialysis sections in Saturday. 3. Anemia in ESRD: cbc w/ auto diff in the morning to trend H/H 4. Elevated troponin: DDx: Demand ischemic, impaired renal clearance, ACS ECG no signs of acute ischemia Serial troponin 5. Gram positive cocci bacteremia/community acquired pneumonia: Repeat blood cultures 12/07 2D echocardiogram to rule out endocardial vegetations Supplemental oxygen as needed Rocephin Zithromax GI ppx: not currently indicated DVT ppx: Heparin Code status: Full Prognosis: guarded Disposition: inpatient ICU-->PCU; Patient's usual dialysis schedule Saturday. We will continue current course of antibiotics with Rocephin and Zithromax. By Saturday 8 patient's repeat blood culture no growth for 48 hours, she will be discharged on Saturday and go back to her regular hemodialysis sections in Saturday. Critical Care Time: 45min Time Spent With Patient Time: Total time spent is greater than 50% in coordination of care (as documented) at patient's floor/unit and/or counseling patient: Total time spent with greater than 50% in coordination of care (as documented) at patient's floor/unit and/or counseling patient:: 35 - 50 minutes Critical Care Time: Yes Total Critical Care Time: 45
--- NOTE | 2021-12-06 13:14 | XRay Report ---
CLINICAL INFORMATION: Neck pain COMPARISON: None. FINDINGS: The cervical spine is normal in curvature and alignment. There is solid C4-5 and C5-6 interbody and facet fusion. There are no other osseous abnormalities. Mild C3-4 and moderate C7-T1 degenerative disc disease noted.. No soft tissue abnormality. IMPRESSION: Solid interbody and facet C4-5 C5-6 fusion Moderate C7-T1 and mild C3-4 degenerative disc disease. No soft tissue abnormality Interpreted and Authenticated by: Rickie Fierro 12/06/21
[2021-12-06] MEDS: IPRATROPIUM/ALBUTEROL 3 ML AMPUL.NEB NEB PRN (13:26)
[2021-12-06] MEDS: METOPROLOL TARTRATE 50 MG TABLET PO SCH ×2 (14:07→20:20)
[2021-12-06] MEDS: 0.9 % SODIUM CHLORIDE 250 ML IV SCH ×2 (14:16)
[2021-12-06] MEDS: traZODone HCL 50 MG TABLET PO PRN (20:19)
[2021-12-07] MEDS: 0.9 % SODIUM CHLORIDE 250 ML IV SCH (04:54)
[2021-12-07] MEDS: NITROGLYCERIN/D5W 25 MG/250 ML BOTTLE IV SCH (04:54)
[2021-12-07] MEDS: morphine 2 MG/ML VIAL IV PRN (05:35)
[2021-12-07] MEDS: 0.9 % SODIUM CHLORIDE 10 ML SYRINGE IV SCH (05:35)
[2021-12-07 07:10] LABS: Basophils % (Auto) 1.3 % (0.0-2.0); Eosinophils % (Auto) 5.3 % (0.0-7.0); Hematocrit 34.2 % (34.1-44.9); Hemoglobin 10.6 g/dL (11.2-15.7); Lymphocytes # (Auto) 0.61 K/mcL (1.50-4.80); Lymphocytes % (Auto) 8.1 % (15.5-49.0); Mean Cell Volume 92.4 fL (80.0-100.0); Mean Platelet Volume 9.4 fL (8.8-12.5); Monocytes # (Auto) 0.84 K/mcL (0.10-0.90); Monocytes % (Auto) 11.2 % (1.0-12.0); Neutrophils % (Auto) 73.4 % (38.0-78.0); Platelet Count 316 K/mcL (140-440); Red Cell Distribution Width 14.6 % (11.5-14.5); WBC 7.5 K/mcL (4.5-11.0)
[2021-12-07] MEDS: INSULIN LISPRO 1 UNIT/0.01 ML UNIT SQ SCH ×2 (07:24→12:06)
[2021-12-07 07:39] LABS: ALT/SGPT 9 U/L (<40); AST/SGOT 15 U/L (<32); Albumin 3.2 gm/dL (3.2-5.2); Albumin/Globulin Ratio 0.7 (1.0-2.3); Alkaline Phosphatase 163 U/L (39-117); Bilirubin,Total 0.2 mg/dL (0.1-1.0); Blood Urea Nitrogen 61 mg/dL (6-20); Calcium 9.9 mg/dL (8.6-10.4); Carbon Dioxide 21 mmol/L (22-30); Chloride 89 mmol/L (96-108); Globulin 4.7 gm/dL (2.2-3.7); Glomerular Filtration Rate 7; Glucose 90 mg/dL (70-105)
[2021-12-07 07:41] LABS: Phosphorous 6.1 mg/dL (2.5-4.5)
[2021-12-07] MEDS: CALCIUM CARBONATE 500 MG TAB.CHEW CHEWED SCH ×2 (08:13→12:25)
--- NOTE | 2021-12-07 08:19 | Nephrology Progress Note ---
SUBJECTIVE Subjective Patient information: Note initiated : 12/07/21 at 8:17 am Patient: Mindy Black 56 y/o F admitted on 12/05/21 for cant breathe. Chief Complaint: Weakness Pertinent ROS: Weakness Shortness of breath Constitutional Vitals: Vital Signs Temp Pulse Resp BP Pulse Ox O2 Del Method O2 Flow Rate 97.2 F 89 20 106/74 94 1 12/07/21 08:10 12/07/21 08:10 12/07/21 08:00 12/07/21 08:10 12/07/21 08:00 12/07/21 02:00 12/06/21 16:04 Period Temp Pulse Resp BP Sys/Stevens Pulse Ox O2 Del Method O2 Flow Rate Last 24 Hr 96.3 F-98.6 F 77-100 12-32 86-152/55-98 94-98 Nasal Cannula- Room Air 1-1 Intake and Output 12/06/21 12/07/21 12/07/21 21:59 05:59 13:59 Intake Total 810 260 Output Total 470 325 Balance 340 -65 Weight 113 lb 8 oz Intake & Output: Intake & Output 12/06/21 12/07/21 12/07/21 21:59 05:59 13:59 Intake Total 810 260 Output Total 470 325 Balance 340 -65 Weight 113 lb 8 oz Intake: IV 250 Zithromax 500 mg In Dextrose 5% 250 in Water 250 ml @ 250 mls/hr IV Q24H REPLACED BY [facility] Rx#:[id number] Oral 560 260 Output: Void Amount 470 0 Stool 325 Other: Meal Dinner Percent of Meal Consumed 75% Feeding Ability Assist with Tray Set Up Urine Appearance Clear Urine Color Yellow Stool Size Large Stool Color Brown Stool Consistency Liquid Loose # Bowel Movements 1 General appearance: cooperative and no acute distress Head Head exam: Present normal inspection Eye Eye exam: Present normal appearance ENT ENT exam: Present mucous membranes moist Respiratory Respiratory exam: Absent respiratory distress Cardiovascular Cardiovascular exam: Present normal rate and rhythm GI/Abdominal GI/Abdominal exam: Present soft; Absent tenderness Extremities Exam Extremities exam: Absent joint swelling or pedal edema Neurological Exam Neurological exam: Present alert and oriented X3 Psychiatric Psychiatric exam: Present normal affect and normal mood Skin Skin exam: Present warm; Absent rash A/P Assessment and plan (1) ESRD on hemodialysis: Assessment and plan: Mindy Black is a 56-year-old female with end stage renal disease on hemodialysis, chronic anemia due to ESRD, hypertension, diabetes mellitus type 2 admitted on 12/05/21. She presented to the ED with severely worsening shortness of breath. Started earlier today but has been progressive throughout the day. She stated some intermittent wheeze and cough, no purulent sputum, no chest pain, no new leg swelling. She did not miss any dialysis. In ED, CXR reported severe CHF. Covis was negative. BP was high. She was started on nitro drip, BIPAP and admitted. Nephrology consultation was requested for end stage renal disease. End stage renal disease on hemodialysis. Acute pulmonary edema and uncontrolled hypertension due to fluid overload. Chronic anemia due to ESRD. AV fistula. PROGRESS HD on 12/05/21 for 3 hours and 2.5 kg UF. HD (PUF) on 12/06/21 for 2 hours and 3.4 kg UF. Recommendations/Plan: Hemodialysis today for 3 hours and 3 kg UF target. The patient seen and evaluated during hemodialysis at 8:30. Tolerating well. Diet renal with 1200 ml/day fluid restriction. Status: Chronic Time Spent With Patient Time: Total time spent is greater than 50% in coordination of care (as documented) at patient's floor/unit and/or counseling patient:
[2021-12-07] MEDS: VITAMIN B COMPLEX 1 CAPSULE PO SCH (08:58)
[2021-12-07] MEDS: VITAMIN D3 125 MCG TABLET PO SCH (08:58)
[2021-12-07] MEDS: IPRATROPIUM/ALBUTEROL 3 ML AMPUL.NEB NEB PRN (09:15)
[2021-12-07] MEDS: hydrALAZINE 25 MG TABLET PO SCH (10:12)
[2021-12-07] MEDS: amLODIPine 5 MG TABLET PO SCH (10:13)
[2021-12-07] MEDS: METOPROLOL TARTRATE 50 MG TABLET PO SCH (10:13)
[2021-12-07] MEDS: DOCUSATE SODIUM 100 MG CAPSULE PO SCH (10:19)
[2021-12-07] MEDS: cefTRIAXone 1 GM VIAL IV SCH (10:25)
--- NOTE | 2021-12-07 11:55 | Internal Med Progress Note ---
SUBJECTIVE Subjective Patient information: Note initiated : 12/07/21 at 11:51 am Service Date, if different from initiated Date: [] Patient: Mindy Black a 56 y/o F admitted on 12/05/21 for cant breathe. Chief Complaint: [] Interval history: Ms. Black is a 56 year old F history of hypertensions associated with end- stage renal disease on hemodialysis via left arm AV graft, presenting with 1 day history of acute onset shortness of breath, cough, wheezing, chest tightness/pain. She is a hemodialysis patient's with the scheduled Saturday with last hemodialysis sections last Saturday. She had acute onset symptoms of shortness of breath, chest tightness, cough, wheezing, onset just prior to ED presentation hours ago. Denies any fever chills or diaphoresis. She stated that she is compliant to her medications including oral antihypertensive with amlodipine, hydralazine, losartan. Vital signs at ED presentation significant for tachycardia and tachypnea heart rate and rate of breathing up to 120s and low 30s, respectively. Labs significant for leukocytosis WBC 18.7, serum creatinine level 6.9. Lactic acid 3.1. Troponin 0.7, 0.68. EKG no acute ischemia. Chest x-ray showing bilateral pulmonary edema's. 12/06: Afebrile overnight. She is currently on 1 L/min of nasal cannula oxygen's. Nitroglycerin drip has been off since yesterday around noon time. Blood culture growing gram-positive cocci in clusters x2. Patient is lethargic and sleepy but COWS score 0. Repeat blood culture x2 tomorrow on 12/07. Performed 2D echocardiogram to rule out any endocardial vegetations. Patient's usual dialysis schedule Saturday. We will continue current course of antibiotics with Rocephin and Zithromax. By Saturday 8 patient's repeat blood culture no growth for 48 hours, she will be discharged on Saturday morning and go back to her regular hemodialysis sections in Saturday afternoon. 12/07: Afebrile overnight. Patient is currently on room air. COWS score of 10. Initial blood culture gram-positive cocci in clusters x2. Low blood pressure overnight lowest set 81/58mmHg. Repeat blood culture x2 today. Performed 2D echocardiogram to rule out any endocardial vegetations. Patient's usual dialysis schedule Saturday. We will continue current course of antibiotics with Rocephin and Zithromax. By Saturday if patient's repeat blood culture no growth for 48 hours, she will be discharged on Saturday and go back to her regular hemodialysis sections in Saturday afternoon. Constitutional Vitals: Vital Signs Temp Pulse Resp BP Pulse Ox O2 Del Method O2 Flow Rate 36.4 C 97 H 16 117/65 98 1 12/07/21 11:15 12/07/21 11:15 12/07/21 10:15 12/07/21 11:15 12/07/21 10:15 12/07/21 10:14 12/06/21 16:04 Period Temp Pulse Resp BP Sys/Stevens Pulse Ox O2 Del Method O2 Flow Rate Last 24 Hr 35.7 C-37.0 C 83-109 12-33 66-124/49-88 94-100 Nasal Cannula- Room Air 1-1 Intake and Output 12/06/21 12/07/21 12/07/21 21:59 05:59 13:59 Intake Total 810 260 Output Total 470 325 800 Balance 340 -65 -800 Weight 51.483 kg Intake & Output: Intake & Output 12/06/21 12/07/21 12/07/21 21:59 05:59 13:59 Intake Total 810 260 Output Total 470 325 800 Balance 340 -65 -800 Weight 51.483 kg Intake: IV 250 Zithromax 500 mg In Dextrose 5% 250 in Water 250 ml @ 250 mls/hr IV Q24H [facility] Rx#:[id number] Oral 560 260 Output: Void Amount 470 0 Stool 325 Hemodialysis UF 800 Other: Meal Dinner Percent of Meal Consumed 75% Feeding Ability Assist with Tray Set Up Urine Appearance Clear Urine Color Yellow Stool Size Large Stool Color Brown Stool Consistency Liquid Loose # Bowel Movements 1 General appearance: average body habitus, cooperative and no acute distress Exam: Lethargic Head Head exam: Present atraumatic and normal inspection Eye Eye exam: Present normal appearance ENT ENT exam: Present mucous membranes moist, normal exam and normal external ear exam Neck Neck exam: Present normal inspection Respiratory Respiratory exam: Present normal respiratory exam Cardiovascular Cardiovascular exam: Present normal rate and rhythm GI/Abdominal GI/Abdominal exam: Present normal bowel sounds Extremities Exam Extremities exam: Present full ROM Additional comments: AV graft left arm Back Exam Back exam: Present normal inspection Neurological Exam Neurological exam: Present alert and oriented X3 Skin Skin exam: Present intact and warm OBJ DATA Labs CBC & Chem 7: 12/07/21 06:18 12/07/21 06:18 Labs: Abnormal Lab Results 12/07/21 12/07/21 12/06/21 06:18 06:18 05:38 WBC RBC Hgb 10.6 L Hct POC Hct MCHC RDW 14.6 H Immature Gran % (Auto) 0.7 H Neut % (Auto) Lymph % (Auto) 8.1 L Lymph # (Auto) 0.61 L [place] # (Auto) Immature Gran # Absolute Neutrophils POC VBG HCO3 POC VBG Total CO2 POC VBG Base Excess VBG Lactic Acid Sodium 129 L 131 L Chloride 89 L 92 L Carbon Dioxide 21 L POC Total CO2 Anion Gap 19.0 H POC BUN BUN 61 H 32 H Creatinine 6.1 H* 4.4 H POC Creatinine POC Glucose POC WB Ioniz Calcium Phosphorus 6.1 H* 5.3 H Alkaline Phosphatase 163 H 159 H Troponin T Albumin 3.1 L Globulin 4.7 H 4.3 H Albumin/Globulin Ratio 0.7 L 0.7 L POC Troponin I 12/06/21 12/05/21 12/05/21 05:38 06:13 06:13 WBC RBC 3.32 L Hgb 9.5 L Hct 30.6 L POC Hct MCHC RDW 15.0 H Immature Gran % (Auto) Neut % (Auto) 83.0 H Lymph % (Auto) 4.7 L Lymph # (Auto) 0.43 L [place] # (Auto) Immature Gran # Absolute Neutrophils POC VBG HCO3 POC VBG Total CO2 POC VBG Base Excess VBG Lactic Acid 2.3 H Sodium Chloride Carbon Dioxide POC Total CO2 Anion Gap POC BUN BUN Creatinine POC Creatinine POC Glucose POC WB Ioniz Calcium Phosphorus Alkaline Phosphatase Troponin T 0.45 H* Albumin Globulin Albumin/Globulin Ratio POC Troponin I 12/05/21 12/05/21 12/05/21 02:54 02:15 00:40 WBC RBC Hgb Hct POC Hct MCHC RDW Immature Gran % (Auto) Neut % (Auto) Lymph % (Auto) Lymph # (Auto) Rice # (Auto) Immature Gran # Absolute Neutrophils POC VBG HCO3 22.2 L POC VBG Total CO2 23.0 L POC VBG Base Excess -4.0 L VBG Lactic Acid 3.1 H 4.4 H* Sodium Chloride Carbon Dioxide POC Total CO2 Anion Gap POC BUN BUN Creatinine POC Creatinine POC Glucose POC WB Ioniz Calcium Phosphorus Alkaline Phosphatase Troponin T Albumin Globulin Albumin/Globulin Ratio POC Troponin I 0.68 H 12/05/21 12/05/21 12/05/21 00:23 00:21 00:15 WBC 18.7 H RBC Hgb 10.3 L Hct POC Hct 35.0 L MCHC 29.6 L RDW 15.0 H Immature Gran % (Auto) 0.9 H Neut % (Auto) 85.0 H Lymph % (Auto) 7.2 L Lymph # (Auto) 1.35 L [place] # (Auto) 1.06 H Immature Gran # 0.16 H Absolute Neutrophils 15.92 H POC VBG HCO3 POC VBG Total CO2 POC VBG Base Excess VBG Lactic Acid Sodium Chloride Carbon Dioxide POC Total CO2 21.0 L Anion Gap POC BUN 60 H BUN Creatinine POC Creatinine 6.9 H* POC Glucose 196 H POC WB Ioniz Calcium 1.11 L Phosphorus Alkaline Phosphatase Troponin T Albumin Globulin Albumin/Globulin Ratio POC Troponin I 0.70 H Meds: Medications Albuterol/Ipratropium (Ipratropium/Albuterol 3 Ml Ampul.Neb) 3 ml NEB Q4HRT PRN PRN Reason: Wheezing Last Admin: 12/07/21 09:15 Dose: 3 ml Allopurinol (Allopurinol 100 Mg Tablet) 100 mg PO Q48@0900 [facility] Last Admin: 12/06/21 12:07 Dose: 100 mg Calcium Carbonate/Glycine (Calcium Carbonate 500 Mg Tab.Chew) 500 mg CHEWED TIDCC [facility] Last Admin: 12/07/21 08:13 Dose: Not Given Ceftriaxone Sodium (Ceftriaxone 1 Gm Vial) 1 gm IV Q24H [facility]; Protocol Last Admin: 12/07/21 10:25 Dose: 1 gm Dextrose (Dextrose 50% 50 Ml Vial) 0 ml IV UD PRN PRN Reason: Per Sliding Scale Diagnostic Test (Pha) (Accu-Chek 1 Each Strip) 1 each FS ACHS [facility] Last Admin: 12/07/21 07:23 Dose: 1 each Docusate Sodium (Docusate Sodium 100 Mg Capsule) 100 mg PO BID [facility] Last Admin: 12/07/21 10:19 Dose: Not Given Glucose (Dextrose 31 Gm Oral.Susp) 15 gm PO PRN PRN PRN Reason: Hypoglycemia Guaifenesin (Guaifenesin/Dextromethorphan Oral Wendy) 10 ml PO Q4HP PRN PRN Reason: Cough Heparin Sodium (Porcine) (Heparin 5,000 Unit/Ml Vial) 5,000 unit SQ Q12 [facility] Last Admin: 12/06/21 20:20 Dose: 5,000 unit Hydralazine HCl (Hydralazine 25 Mg Tablet) 50 mg PO BID [facility] Last Admin: 12/07/21 10:12 Dose: Not Given Nitroglycerin/Dextrose (Nitroglycerin/D5w) 25 mg in 250 mls @ 3 mls/hr IV .Q24H [facility]; Protocol Last Admin: 12/07/21 04:54 Dose: Not Given Sodium Chloride (Sodium Chloride 0.9%) 250 mls @ 20 mls/hr IV .[id number] [facility] Last Admin: 12/07/21 04:54 Dose: Not Given Azithromycin 500 mg/ Dextrose 250 mls @ 250 mls/hr IV Q24H [facility]; Protocol Stop: 12/07/21 16:59 Last Infusion: 12/06/21 14:42 Dose: Infused Insulin Human Lispro (Insulin Lispro 1 Unit/0.01 Ml Unit) 0 unit SQ ACHS [facility]; Protocol Last Admin: 12/07/21 07:24 Dose: Not Given Lorazepam (Lorazepam 0.5 Mg Tablet) 0.5 mg PO Q4HP PRN PRN Reason: ANXIETY/SEDATION Last Admin: 12/06/21 16:04 Dose: 0.5 mg Morphine Sulfate (Morphine 2 Mg/Ml Vial) 2 mg IV Q4HP PRN; Protocol PRN Reason: Per Pain Protocol Last Admin: 12/07/21 05:35 Dose: 2 mg Naloxone HCl (Naloxone Hcl 0.4 Mg/Ml Vial) 0.1 mg IV Q2MIN PRN PRN Reason: Opiate Reversal Nitroglycerin (Nitroglycerin 0.4 Mg Tab.Subl) 0.4 mg SL Q5M PRN PRN Reason: Chest Pain Ondansetron HCl (Ondansetron 4 Mg/2 Ml Vial) 4 mg IV Q4HP PRN; Protocol PRN Reason: Nausea And Vomiting Last Admin: 12/05/21 07:35 Dose: 4 mg Promethazine HCl (Promethazine 25 Mg/Ml Vial) 12.5 mg IV Q4HP PRN PRN Reason: Nausea And Vomiting Senna (Sennosides 1 Tablet) 1 tab PO DAILYP PRN PRN Reason: Constipation Sodium Chloride (0.9 % Sodium Chloride 10 Ml Syringe) 10 ml IV Q8 [facility] Last Admin: 12/07/21 05:35 Dose: 10 ml Trazodone HCl (Trazodone Hcl 50 Mg Tablet) 25 mg PO HSP PRN PRN Reason: Insomnia Last Admin: 12/06/21 20:19 Dose: 25 mg Vitamin B Complex (Vitamin B Complex 1 Capsule) 1 cap PO QDAY [facility] Last Admin: 12/07/21 08:58 Dose: Not Given Vitamin D (Vitamin D3 125 Mcg Tablet) 125 mcg PO QDAY [facility] Last Admin: 12/07/21 08:58 Dose: Not Given A/P Assessment and plan (1) Hypertensive emergency: Status: Acute (2) Bilateral hearing loss: Status: Chronic (3) ESRD on hemodialysis: Status: Chronic (4) Anemia in end-stage renal disease: Status: Acute (5) Elevated troponin: Status: Acute (6) Gram-positive cocci bacteremia: Status: Acute (7) Community acquired pneumonia: Status: Acute (8) Opioid withdrawal: Status: Acute Narrative A/P Narrative: Assessment and Plans: 1. Hypertensive emergency: Inpatient PCU Now borderline low blood pressure Consult filament maker Dr. Schultz for hemodialysis needs Nitroglycerin drip off Hold Amlodipine Hold Losartan Hold Hydralazine Patient's usual dialysis schedule Saturday. We will continue current course of antibiotics with Rocephin and Zithromax. By Saturday 8 patient's repeat blood culture no growth for 48 hours, she will be discharged on Saturday and go back to her regular hemodialysis sections in Saturday afternoon. 2. ESRD on hemodialysis: Consult filament maker Dr. Schultz for hemodialysis Patient's usual dialysis schedule Saturday. We will continue current course of antibiotics with Rocephin and Zithromax. By Saturday 8 patient's repeat blood culture no growth for 48 hours, she will be discharged on Saturday and go back to her regular hemodialysis sections in Saturday afternoon. 3. Anemia in ESRD: cbc w/ auto diff in the morning to trend H/H 4. Elevated troponin: DDx: Demand ischemic, impaired renal clearance, ACS ECG no signs of acute ischemia Serial troponin 5. Gram positive cocci bacteremia/community acquired pneumonia: Repeat blood cultures on 12/07 2D echocardiogram to rule out endocardial vegetations Supplemental oxygen as needed Rocephin Zithromax 6. 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 We will continue current course of antibiotics with Rocephin and Zithromax. By Saturday 8 patient's repeat blood culture no growth for 48 hours, she will be discharged on Saturday and go back to her regular hemodialysis sections in Saturday afternoon. Time Spent With Patient Time: Total time spent is greater than 50% in coordination of care (as documented) at patient's floor/unit and/or counseling patient:
[2021-12-07] MEDS: HEPARIN 5,000 UNIT/ML VIAL SQ SCH (12:04)
[2021-12-07] MEDS: AZITHROMYCIN 500 MG in DEXTROSE 5% IN WATER 250 ML IV SCH (12:05)
--- NOTE | 2021-12-07 13:41 | Discharge Summary ---
Discharge Provider Provider IMPORTANT FOLLOW-UP INFORMATION FOR PCP: Patient information: Note initiated : 12/07/21 at 1:39 pm Service Date, if different from initiated Date: [] Patient: Mindy Black 56 y/o F admitted on 12/05/21 for cant breathe. Chief Complaint: [] Date of admission: 12/05/21 03:41 Discharge date: 12/07/21 Primary care physician: Levy Pena DO Attending physician on admission: Ritesh Calvert Consults: 12/05/21 Consult to Physician [CONS] Stat Comment: Consulting Provider: Ritesh Calvert Reason For Exam: Physician to Consult Consult to Physician [CONS] Stat Comment: ESRD, htn emerg, pulm edema Consulting Provider: Randy Schultz Reason For Exam: Physician to Consult Attending physician on discharge: Ritesh Calvert COURSE Hospital Course Hospital course: Ms. Black is a 56 year old F history of hypertensions associated with end- stage renal disease on hemodialysis via left arm AV graft, presenting with 1 day history of acute onset shortness of breath, cough, wheezing, chest tightness/pain. She is a hemodialysis patient's with the scheduled Saturday with last hemodialysis sections last Saturday. She had acute onset symptoms of shortness of breath, chest tightness, cough, wheezing, onset just prior to ED presentation hours ago. Denies any fever chills or diaphoresis. She stated that she is compliant to her medications including oral antihypertensive with amlodipine, hydralazine, losartan. Vital signs at ED presentation significant for tachycardia and tachypnea heart rate and rate of breathing up to 120s and low 30s, respectively. Labs significant for leukocytosis WBC 18.7, serum creatinine level 6.9. Lactic acid 3.1. Troponin 0.7, 0.68. EKG no acute ischemia. Chest x-ray showing bilateral pulmonary edema's. 12/06: Afebrile overnight. She is currently on 1 L/min of nasal cannula oxygen's. Nitroglycerin drip has been off since yesterday around noon time. Blood culture growing gram-positive cocci in clusters x2. Patient is lethargic and sleepy but COWS score 0. Repeat blood culture x2 tomorrow on 12/07. Performed 2D echocardiogram to rule out any endocardial vegetations. Patient's usual dialysis schedule Saturday. We will continue current course of antibiotics with Rocephin and Zithromax. By Saturday 8 patient's repeat blood culture no growth for 48 hours, she will be discharged on Saturday and go back to her regular hemodialysis sections in Saturday. 12/07: Afebrile overnight. Patient is currently on room air. COWS score of 10. Initial blood culture gram-positive cocci in clusters x2. Low blood pressure overnight lowest set 81/58mmHg. Repeat blood culture x2 today. Performed 2D echocardiogram to rule out any endocardial vegetations. Patient's usual dialysis schedule Saturday. We will continue current course of antibiotics with Rocephin and Zithromax. By Saturday if patient's repeat blood culture no growth for 48 hours, she will be discharged on Saturday and go back to her regular hemodialysis sections in Saturday. left AMA Discharge diagnosis: bacteremia Time Spent with Patient Time attestation: Total time spent providing and/or coordinating discharge services: Time spent: Less than 30 minutes EXAM Constitutional Vitals: Temp Pulse Resp BP Pulse Ox O2 Del Method O2 Flow Rate 36.2 C 98 H 14 113/76 98 1 12/07/21 12:00 12/07/21 12:00 12/07/21 12:00 12/07/21 12:00 12/07/21 12:00 12/07/21 10:14 12/06/21 16:04 General appearance: no acute distress; no cooperative Head Head exam: Present atraumatic and normocephalic Eye Eye exam: Present EOMI and PERRL ENT ENT exam: Present mucous membranes moist, normal exam and normal external ear exam Neck Neck exam: Present normal inspection; Absent lymphadenopathy, tenderness or thyromegaly Respiratory Respiratory exam: Absent accessory muscle use, respiratory distress or wheezes Cardiovascular Cardiovascular exam: Present normal rate and rhythm; Absent JVD GI/Abdominal GI/Abdominal exam: Present normal bowel sounds and soft; Absent organomegaly or tenderness Extremities Exam Extremities exam: Present full ROM, normal capillary refill and normal inspection; Absent tenderness Neurological Exam Neurological exam: Present alert, CN II-XII intact and oriented X3; Absent motor sensory deficit Psychiatric Psychiatric exam: Present normal affect and normal mood; Absent anxious or depressed Skin Skin exam: Present dry and intact Discharge Data Data Completed and Pending Labs on day of discharge: Labs from last 24 hours 12/07/21 12/07/21 06:18 06:18 WBC 7.5 RBC 3.70 Hgb 10.6 L Hct 34.2 MCV 92.4 MCH 28.6 MCHC 31.0 RDW 14.6 H Plt Count 316 MPV 9.4 Immature Gran % (Auto) 0.7 H Neut % (Auto) 73.4 Lymph % (Auto) 8.1 L [place] % (Auto) 11.2 Eos % (Auto) 5.3 Baso % (Auto) 1.3 Lymph # (Auto) 0.61 L [place] # (Auto) 0.84 Eos # (Auto) 0.40 Baso # (Auto) 0.10 Immature Gran # 0.05 Absolute Neutrophils 5.49 Sodium 129 L Potassium 4.4 Chloride 89 L Carbon Dioxide 21 L Anion Gap 19.0 H BUN 61 H Creatinine 6.1 H* GFR Calculation 7 Glucose 90 Calcium 9.9 Phosphorus 6.1 H* Magnesium 2.3 Total Bilirubin 0.2 AST 15 ALT 9 Alkaline Phosphatase 163 H Total Protein 7.9 Albumin 3.2 Globulin 4.7 H Albumin/Globulin Ratio 0.7 L Preliminary micro results at discharge 12/05/21 14:45 Blood Culture - Preliminary Blood Gram positive cocci Discharge Plan Patient/Caregiver Discharge Instructions Activity: other Prescriptions: No Action losartan 100 mg tablet 100 mg PO QDAY Qty: 90 3RF furosemide 80 mg tablet 80 mg PO DAILY hydralazine 50 mg tablet 50 mg PO BID metoprolol tartrate 50 mg tablet 50 mg PO BID amlodipine 5 mg tablet 5 mg PO DAILY calcium carbonate [Tums] 200 mg calcium (500 mg) Tablet,Chewable 600 mg PO TIDWMEAL Follow Up Plan Follow up with: Levy Pena DO [Primary Care Provider] - Patient Disposition: Left Against Medical Advice Prognosis: Critical Discharge Comment: Left AMA, no discharge order
== END 2021-12-07 13:35 | disposition left against medical advice (07) | DRG 304 ==
LOC: ED 23:59 → ICU 12-05 03:41
PROVIDERS: ADMIT Internal Medicine; ATTEND Internal Medicine

== ENCOUNTER 2022-02-22 08:57 | Inpatient (IN) ==
--- NOTE | 2022-02-22 09:43 | Emergency Department Note ---
HPI General Chief complaint: Recheck/Abnormal Lab/Rx Stated complaint: Infection in heart Time Seen by Provider: 02/22/22 09:13 Source: patient and family Mode of arrival: wheelchair Limitations: no limitations History of Present Illness HPI Narrative: Narrative:Ann-Marie is a 56-year-old female with endocarditis being treated by Dr. Fran Yee with dialysis. He stop by and explained to us that he treats her with vancomycin and gent for the endocarditis. He states he had a round of treatment which she did not complete approximately 6 months ago and on reevaluation cultures were shown that she is still growing gram-positive cocci in clusters with ID and sensitivity pending as of 1214. 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 The patient denies any fevers but does state that she is very weak and has very little exercise tolerance. Ultrasounds were reviewed with radiology and they show severe concentric left ventricular hypertrophy with an ejection fraction of 69%. Positive mitral regurgitation and TR velocity 4 m/s. The right ventricle is normal in size and function. TAPSE was measured at 1.9 cm and RVS prime was measured at 12 cm/s left atrium is severely dilated with a left atrial index of 51 mm/m. The right atrium is normal. No obvious septal defect is seen with color Doppler. Mild to moderate mitral annular calcification. The mitral valve leaflets appear thickened. Leaflet excursion is severely reduced. Mass seen on anterior mitral leaflet suggestive of vegetation. Moderate to severe mitral regurgitation. The mitral regurgitant jet is posteriorly directed which is consistent with anterior leaflet pathology. There is minimal mitral stenosis. Mitral valve mean diastolic gradient was measured at 6.2 mm. The mitral valve PE 1/2 time is 56.3 ms the mitral valve area was calculated at 3.9 cm. Tricuspid valve there is tricuspid annular calcification tricuspid valve leaflets are thickened and/or calcified but open well there is moderate to sever e tricuspid regurgitation. TR velocity is 4 m/s. The IVC inspiratory collapse is normal at greater than 50% the IVC dimension is 2.2 cm. There is no tricuspid stenosis. Aortic valve. The aortic valve is trileaflet. The aortic valve is moderately sclerotic. The aortic valve leaflets appear mild to moderately calcified. Incomplete AOV leaflet coaptation is evident in diastole. There is nodular thickening of all 3 aortic cusps. There is moderate size vegetation or mass on the aortic valve. Severe aortic insufficiency. Aortic insufficiency pressure half-time is 159 ms. Moderate valvular aortic stenosis. Aortic valve peak velocity equals 3 m/s. Aortic valve mean systolic gradient w as measured at 21 mmHg. The aortic valve area is 1.4 cm. Geneva valve there is mild to moderate thickening of the pulmonic valve. Mild pulmonic valve regurgitation. There is no pulmonic valvular stenosis. Turbulent flow noted across pulmonic valve. Related Data Previous Rx's Medication Instructions Recorded metoprolol tartrate 100 mg tablet 100 mg PO BID HTN #60 tabs 12/28/21 calcium acetate(phosphat bind) 667 667 mg PO .TID with meals High 01/09/22 mg capsule phosphorous and itching #90 caps valsartan 320 mg tablet 320 mg PO QAM #30 tabs 01/09/22 aspirin 81 mg tablet,delayed 81 mg PO QDAY Clotted AVF #90 tabs 01/18/22 release (Enteric Coated Aspirin) clopidogrel 75 mg tablet 75 mg PO QDAY Clotted AVF #30 tabs 01/18/22 gentamicin 100 mg/100 mL in sodium 100 mg (100 mL) IV ONCE Gm (+) 02/20/22 chloride(iso) intravenous piggyback blood culture #100 mL vancomycin 1 gram/250 mL in 0.9 % 1 g (250 mL) IV ONCE BC (+) #250 mL 02/20/22 sodium chloride intravenous Allergies Allergy/AdvReac Type Severity Reaction Status Date / Time Sulfa (Sulfonamide Allergy Unknown Unknown Verified 02/22/22 09:04 Antibiotics) Review of Systems ROS ROS Narrative: Narrative: All systems ED: reviewed and negative except as stated. PFSH Narrative Patient History Narrative: Narrative: Medical/Surgical/Family History All Active Problems (Updated 02/22/22 @ 13:48 by Levy Bashir MD) Ulcerative colitis (Chronic) Fatigue (Chronic) Body aches (Chronic) Hypertension (Chronic) Bilateral hearing loss (Chronic) Otosclerosis (Chronic) Conductive hearing loss (Chronic) Vasomotor rhinitis (Chronic) Sensorineural hearing loss (SNHL) (Chronic) ET (eustachian tube disorder) (Chronic) Pulmonary embolism (Chronic) Acute myocardial infarction (Chronic) Crohn's disease (Chronic) Secondary hyperparathyroidism of renal origin (Chronic) Vitamin D deficiency (Chronic) ESRD on hemodialysis (Chronic) Hyperphosphatemia (Chronic) Dependence on renal dialysis (Chronic) Generalized abdominal pain (Chronic Unknown) Other encephalopathy (Chronic) Other anxiety states (Chronic) Chronic renal failure (Chronic) Localized edema due to fluid overload (Chronic) AV graft malfunction (Acute) Metabolic acidosis, NAG, bicarbonate losses (Acute) Encounter for dialysis catheter care (Acute) ESRD (end stage renal disease) on dialysis (Acute) Hypertensive emergency (Acute) Anemia in end-stage renal disease (Acute) Elevated troponin (Acute) Hypertensive emergency (Acute) Elevated troponin (Acute) End-stage renal disease (ESRD) (Acute) Acute respiratory failure with hypoxia (Acute) Other fluid overload (Acute) Community acquired pneumonia (Acute) Gram-positive cocci bacteremia (Acute) Opioid withdrawal (Acute) Diastolic murmur (Acute) Coag negative Staphylococcus bacteremia (Acute) Acute bacterial endocarditis (Acute) Infection of aortic graft (Acute) Medical History (Updated 02/22/22 @ 13:48 by Levy Bashir MD) Acute myocardial infarction Aortic arch dissection Bilateral hearing loss Body aches Chronic renal failure Conductive hearing loss Crohn's disease Dependence on renal dialysis ET (eustachian tube disorder) Fatigue Generalized abdominal pain (Unknown) Hypertension Other anxiety states Other encephalopathy Otosclerosis Pulmonary embolism Sensorineural hearing loss (SNHL) Ulcerative colitis Vasomotor rhinitis Surgical History History of ileostomy (~07/2009) History of thoracic aortic aneurysm repair (~02/2018) Stent Family History Unknown Bleeding disorder Clotting disorder Social History Smoking Status: Current every day smoker Alcohol Intake Frequency: does not drink Substance Use: does not use Exam Narrative Narrative: Narrative:General: Patient in no acute distress she is alert and oriented x3 answers questions cogently. Skin: Well perfused hydrated without exanthem. Lungs: Coarse rhonchi bilaterally. CV: Systolic and diastolic murmurs heard with normal rate and rhythm. General Limitations: no limitations Course Vital Signs Vital signs: Vital Signs Temperature 97.9 F 02/22/22 09:00 Pulse Rate 83 02/22/22 09:00 Respiratory Rate 18 02/22/22 09:00 Blood Pressure 112/54 02/22/22 09:00 Oxygen Delivery Method 02/22/22 09:00 Temperature 97.9 F 02/22/22 09:00 Pulse Rate 73 02/22/22 18:41 Respiratory Rate 23 H 02/22/22 18:31 Blood Pressure 104/41 02/22/22 18:41 Pulse Oximetry (%) 100 02/22/22 18:41 Oxygen Delivery Method 02/22/22 16:04 Oxygen Flow Rate (L/min) 2 02/22/22 16:04 [facility] Narrative Medical decision making narrative: Narrative: Patient's gentamicin level came back at 3.6. So she does not need anymore gentamicin at this time. Her Vancomycin level came back at 14, so she was given a gram of vancomycin as per Dr Mckay's directions. Attempts were made to transfer the patient to [facility]. I spoke to a furnace puncher there who agreed with the patient's treatment, and accepted her as a patient, but they have no beds. We have called a variety of facilities and none have accepted her at this point. Talking to her and her brother she is a full code. Dr. Mckay was very explicit that he does not want her admitted here, pending transfer to somewhere else. I informed him that she will probably either be in the ER or in a hospital bed in this location for several days pending a transfer which he is reluctantly accepting. We are all justifiably concerned that she could rupture her aortic repair after having been bacteremic for so long without treatment. Discussed the case with the cardiothoracic surgeon who originally worked on her aneurysm and installed her AV fistula. And he stated if she is still using he would not take her to surgery anyway. Even if she was in [facility]. We will do drug screens on her at this time but her a cardiovascular parameters seem like she is in withdrawal as we have used maximum esmolol to control her blood pressure and pulse and had to give her benzos to help control that. Sepsis Sepsis Identified: No Lab Data Result diagrams: 02/22/22 09:59 02/22/22 09:59 Labs: Lab Results 02/22/22 02/22/22 02/22/22 Range/Units 09:57 09:59 09:59 WBC 7.7 (4.5-11.0) K/mcL RBC 2.95 L (3.59-5.38) M/mcL Hgb 8.4 L (11.2-15.7) g/dL Hct 27.9 L (34.1-44.9) % MCV 94.6 (80.0-100.0) fL MCH 28.5 (26.0-34.0) pg MCHC 30.1 L (31.0-36.0) g/dL RDW 16.2 H (11.5-14.5) % Plt Count 258 (140-440) K/mcL MPV 9.6 (8.8-12.5) fL Immature Gran % (Auto) 0.9 H (0.0-0.5) % Neut % (Auto) 74.9 (38.0-78.0) % Lymph % (Auto) 10.6 L (15.5-49.0) % Duchesne % (Auto) 10.0 (1.0-12.0) % Eos % (Auto) 2.7 (0.0-7.0) % Baso % (Auto) 0.9 (0.0-2.0) % Lymph # (Auto) 0.82 L (1.50-4.80) K/mcL Duchesne # (Auto) 0.77 (0.10-0.90) K/mcL Eos # (Auto) 0.21 (0.00-0.70) K/mcL Baso # (Auto) 0.07 (0.00-0.30) K/mcL Immature Gran # 0.07 H (0.00-0.05) K/mcl Absolute Neutrophils 5.77 (1.80-8.00) K/mcL Sodium 134 (133-145) mmol/L Potassium 5.0 (3.3-5.1) mmol/L Chloride 90 L (96-108) mmol/L Carbon Dioxide 30 (22-30) mmol/L Anion Gap 14.0 (8.0-16.0) BUN 43 H (6-20) mg/dL Creatinine 5.4 H* (0.6-1.1) mg/dL GFR Calculation 8 Glucose 92 (70-105) mg/dL Calcium 8.3 L (8.6-10.4) mg/dL Total Bilirubin 0.5 (0.1-1.0) mg/dL AST 20 (<32) U/L ALT 9 (<40) U/L Alkaline Phosphatase 178 H (39-117) U/L Total Protein 7.3 (5.9-8.4) gm/dL Albumin 3.2 (3.2-5.2) gm/dL Globulin 4.1 H (2.2-3.7) gm/dL Albumin/Globulin Ratio 0.8 L (1.0-2.3) Gentamicin Trough 3.6 H* (<0.3) ug/mL Random Vancomycin 14.1 ug/mL Discharge Plan Patient/Caregiver Discharge Instructions Pt seen by PROFESSOR OF LEGAL STUDIES/PA only: No Patient Disposition: Xfer [facility] Follow up with: Levy Pena DO [Primary Care Provider] - Prescriptions: No Action metoprolol tartrate 100 mg tablet 100 mg PO BID Qty: 60 12RF valsartan 320 mg tablet 320 mg PO QAM Qty: 30 12RF calcium acetate(phosphat bind) 667 mg capsule 667 mg PO .TID with meals Qty: 90 12RF Rx Instructions: Take 1 cap with each meal clopidogrel 75 mg tablet 75 mg PO QDAY Qty: 30 11RF Rx Instructions: Take 4 tabs today only (300 mg), then 1 tablet (75mg) every day therafter aspirin [Enteric Coated Aspirin] 81 mg tablet,delayed release (DR/EC) 81 mg PO QDAY Qty: 90 3RF vancomycin in 0.9 % sodium chl 1 gram/250 mL solution 1 g IV ONCE Qty: 250 0RF Rx Instructions: Give during last hour of HD today gentamicin in NaCl (iso-osm) 100 mg/100 mL piggyback 100 mg IV ONCE Qty: 100 0RF Rx Instructions: Give once at conclusion of HD Plan of Treatment: As above and outline in HPI Restart outpatient BP Rx and PO4 binders.
--- NOTE | 2022-02-22 10:54 | Nephrology Progress Note ---
SUBJECTIVE Subjective Patient information: Note initiated : 02/22/22 at 10:53 am Service Date, if different from initiated Date: [] Patient: Mindy Black 56 y/o F admitted on for Infection in heart. 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 She was seen at [facility] ED for weakness, anorexia and nausea on 02/17/21. Her labs were as below. She was previously seen in the same ED on 12/05/20 and serum creatinine was 6.2 (eGFR 7). Labs on 02/17/21: Serum sodium 134, potassium 4.5, CO2 10, creatinine 9.0, eGFR 4, calcium 9.4, albumin 4.2, magnesium 2.1, CK 27, WBC 11.8, hemoglobin 10.5, PLT 341, urinalysis yellow, cloudy, pH 5.0, SG 1.011, protein 30, blood negative, leukocyte esterase 75. CT Abdomen and Pelvis on 02/17/21: Kidneys are normal." Subsequently she was initiated on hemodialysis via a cuffed HD catheter managed by Dr. Schultz. Subsequently she was transferred to my care and my only additions were profound hearing loss, with significant murmur on routine dialysis rounds when I first assumed care, and the fact that her ileostomy with the saving shawanda in terms of managing her fluid and volume as she frequently missed dialysis treatment but would not become fluid overloaded. She also had marked hypertension and hyperparathyroidism but because of socioeconomic reasons she had a hard time with compliance for medication. In October 2021 her cuffed hemodialysis catheter was removed without incident as her access was now working well In November [address] [facility] for what was felt to be bacterial pneumonia. COVID was negative, 1 out of 2 blood cultures were positive for coag negative staph. And a third set was drawn but the patient was discharged before they were resulted. January 2022 she developed an acute thrombosis of her AV fistula and underwent declotting by IR at [facility]. Complications with prolonged anesthesia and she required transfer for higher level of care. I can only suspicion that with her habit of surreptitious narcotic use (heroin), may have been oversedation at the time of vascular intervention. Her mentation cleared and she returned to the dialysis unit. Speaking with the she had a ruptured aortic aneurism in the past repaired at [facility]. By the end of January there was concerns for the whole family being sick with upper respiratory tract infections but she again was COVID-negative, she began to develop fever, and no appreciated I believed to be new systolic ejection murmur and a diastolic murmur at the left upper sternal border. Blood cultures were obtained on Saturday, February 17, while I was not notified at first because the results went to the ER I did find out that her culture is growing gram-positive cocci again and on Saturday she was given vancomycin 1 g and gentamicin 100 mg IV at the conclusion of dialysis. Due to delays in scheduling and patient compliance and echocardiogram was not performed until last evening and I was called about the results this morning which showed vegetations on the aortic and mitral valve, AI and AAS as well as MR with preserved LVEF. On yesterday's exam there is no evidence of any peripheral embolization such as Osler's nodes or splinter hemorrhages but my concern is that this patient has acute bacterial endocarditis probably on a prosthetic aortic graft and/or valve. In speaking with the radiologist who is reading the echocardiogram this morning (Dr Nahun Kang) he advised urgent evaluation by cardiovascular surgery. Blood cultures 02/17/2022 Preliminary results growing (+) Gm (+) cocci in clusters. I/D and Sensitivity pending as of 02/21/2022 at 1730 hr (PRL labs). Vital Signs Temp Pulse Resp BP Pulse Ox O2 Del Method 02/22/22 12:25 28 H 02/22/22 11:50 24 H 02/22/22 11:13 75 20 97 02/22/22 09:00 36.6 C 83 18 112/54 Room Air Intake and Output 02/22/22 02/22/22 02/22/22 03:59 11:59 19:59 Other: Weight 50.349 kg Patient Weight 02/23/22 03:59 Weight 50.349 kg Diagnosis: Coag neg staph endocarditis with involvement of Aortic and mitral valve along with aortic arch graft repair and possibly AVF for HD Plan: 1. Repeat blood cultures x 1 set 2. Vanco level and redose if level < 15 (1,000 mg) 3. Gent level and redose if level < 2.0 (100 mg) 4. Transfer to [facility] (known to them from aortic aneurysm repair) or other [facility] for cardiovascular surgery evaluation, cardiolgy, renal, and ID consulations and continued HD. Pertinent ROS: (+) subjective fever Weakness and mailaise states no recent IVDA New murmurs and (+) blood cultures Prior AVF declot Not the most compliant HD patient Ileostomy protects from fluid overload Poor compliance with phosphate binders decreased hearing prior to 1st dose of aminoglycoside...states lost hearing when she had covid infection in the past. Constitutional Vitals: Vital Signs Temp Pulse Resp BP O2 Del Method 36.6 C 83 18 112/54 02/22/22 09:00 02/22/22 09:00 02/22/22 09:00 02/22/22 09:00 02/22/22 09:00 Period Temp Pulse Resp BP Sys/Stevens Pulse Ox O2 Del Method O2 Flow Rate Last 24 Hr 36.6 C 83 18 112/54 Room Air Intake and Output 02/21/22 02/22/22 02/22/22 19:59 03:59 11:59 Weight 50.349 kg Patient Weight 02/23/22 03:59 Weight 50.349 kg Intake & Output: Intake & Output 02/21/22 02/22/22 02/22/22 19:59 03:59 11:59 Weight 50.349 kg General appearance: mild distress and thin Head Head exam: Present normal inspection Eye Eye exam: Present EOMI and PERRL; Absent scleral icterus ENT ENT exam: Present mucous membranes dry Neck Neck exam: Present meningismus Respiratory Respiratory exam: Present CTAB; Absent rales Cardiovascular Cardiovascular exam: Present diastolic murmur; Absent JVD, systolic murmur or tachycardia Additional comments: MS/AI/ GI/Abdominal GI/Abdominal exam: Present hypoactive bowel sounds; Absent tenderness Additional comments: iliostomy present Neurological Exam Neurological exam: Present alert, CN II-XII intact and oriented X3 Psychiatric Psychiatric exam: Present anxious Skin Skin exam: Present dry A/P Assessment and plan (1) Acute bacterial endocarditis: Status: Acute Comment: CoNS. First noted in 11/2021 hospital admission but thought to be a "contaminant" until developed new murmurs in late Jan 2022 See Echo results and repeated cultures from Feb 17 and February 20, 2022. (2) Coag negative Staphylococcus bacteremia: Status: Acute Comment: CoNS. First noted in 11/2021 hospital admission but thought to be a "contaminant" until developed new murmurs in late Jan 2022 (3) Infection of aortic graft: Status: Acute Comment: No doubt infected given bacteremia as far back as 11/2021 when 2/3 sets of blood cultures (+) for CoNS (4) End-stage renal disease (ESRD): Status: Acute Comment: HD TTS (5) IV drug user: Status: Resolved Comment: and patient report abstinence for > 2 yrs Plan 1. Dedose Vanco (done today) for level 14 this AM. 2. HD within 24 hrs 3. Gent after HD treatment or tomorrow 4. Needs transfer for higher level of car and CV surgery evaluation Narrative A/P Narrative: As above Plan of Treatment: As above and outline in HPI Restart outpatient BP Rx and PO4 binders. Time Spent With Patient Time: Total time spent is greater than 50% in coordination of care (as documented) at patient's floor/unit and/or counseling patient: Total time spent with greater than 50% in coordination of care (as documented) at patient's floor/unit and/or counseling patient:: Greater than 70 minutes
[2022-02-22 11:01] LABS: Basophils # (Auto) 0.07 K/mcL (0.00-0.30); Basophils % (Auto) 0.9 % (0.0-2.0); Eosinophils # (Auto) 0.21 K/mcL (0.00-0.70); Eosinophils % (Auto) 2.7 % (0.0-7.0); Hematocrit 27.9 % (34.1-44.9); Hemoglobin 8.4 g/dL (11.2-15.7); Lymphocytes # (Auto) 0.82 K/mcL (1.50-4.80); Lymphocytes % (Auto) 10.6 % (15.5-49.0); Mean Cell Volume 94.6 fL (80.0-100.0); Mean Corpuscular HGB Conc 30.1 g/dL (31.0-36.0); Mean Platelet Volume 9.6 fL (8.8-12.5); Monocytes # (Auto) 0.77 K/mcL (0.10-0.90); Neutrophils % (Auto) 74.9 % (38.0-78.0); Platelet Count 258 K/mcL (140-440); RBC 2.95 M/mcL (3.59-5.38); Red Cell Distribution Width 16.2 % (11.5-14.5); WBC 7.7 K/mcL (4.5-11.0)
[2022-02-22 11:09] LABS: Vancomycin,Random 14.1 ug/mL
[2022-02-22 11:45] LABS: ALT/SGPT 9 U/L (<40); AST/SGOT 20 U/L (<32); Albumin 3.2 gm/dL (3.2-5.2); Albumin/Globulin Ratio 0.8 (1.0-2.3); Alkaline Phosphatase 178 U/L (39-117); Bilirubin,Total 0.5 mg/dL (0.1-1.0); Blood Urea Nitrogen 43 mg/dL (6-20); Calcium 8.3 mg/dL (8.6-10.4); Carbon Dioxide 30 mmol/L (22-30); Chloride 90 mmol/L (96-108); Globulin 4.1 gm/dL (2.2-3.7); Glomerular Filtration Rate 8; Glucose 92 mg/dL (70-105)
[2022-02-22] MEDS ORDERED: VANCOMYCIN 1,000 MG in 0.9 % SODIUM CHLORIDE 250 ML IV ONE (12:11)
[2022-02-22] MEDS ORDERED: CLOPIDOGREL 75 MG TABLET PO SCH (13:06)
[2022-02-22] MEDS ORDERED: METOPROLOL TARTRATE 50 MG TABLET PO SCH (13:15)
[2022-02-22] MEDS ORDERED: 0.9 % SODIUM CHLORIDE 250 ML IV SCH ×2 (14:15)
[2022-02-22] MEDS ORDERED: LORazepam 1 MG TABLET PO ONE (14:30)
[2022-02-22] MEDS: LORazepam 2 MG/ML ORAL.SOL PO ONE ×2 (14:31→14:53)
[2022-02-22] MEDS ORDERED: LORazepam 2 MG/ML VIAL IV ONE (14:32)
[2022-02-22] MEDS: ESMOLOL 2,500 MG in PREMIX 1 BAG IV SCH (14:39)
[2022-02-22] MEDS ORDERED: LORazepam 0.5 MG TABLET PO PRN (14:52)
[2022-02-22] MEDS ORDERED: CALCIUM ACETATE 667 MG TABLET PO SCH (17:30)
[2022-02-22] MEDS ORDERED: VALSARTAN 320MG PO SCH (19:00)
[2022-02-22 20:53] LABS: Alcohol,Blood 0.033 gm/dL (<0.010)
--- NOTE | 2022-02-23 02:18 | Emergency Department Note ---
Course Course Course Narrative: I assumed care of patient at 1900 pending and excepting facility for transfer. Please refer to Dr. Barnhart note for note up to this care. Patient's nut sifter called back and states that he spoke to patient's cardiothoracic surgeon in [place] who states that patient is not a surgical candidate. He states that even if she ruptures there would be no intervention up at their facility so a transfer would not be necessary. Supply Chain Generalist requested we keep patient here. Unfortunately do not have any beds here so we will keep her in the ED to see if any beds open in the morning. We will continue with IV antibiotics to treat her endocarditis. Patient remains on esmolol to control her pressure to reduce the chance of rupture. Blood products have been ordered on standby in case that there is rupture. Patient remains hemodynamic stable at this time. Patient be transferred out to Dr. Barnhart who will assume care pending admission. Vital Signs Vital signs: Vital Signs Temperature 97.9 F 02/22/22 09:00 Pulse Rate 83 02/22/22 09:00 Respiratory Rate 18 02/22/22 09:00 Blood Pressure 112/54 02/22/22 09:00 Oxygen Delivery Method 02/22/22 09:00 Temperature 97.9 F 02/22/22 09:00 Pulse Rate 72 02/23/22 00:30 Respiratory Rate 15 02/23/22 01:29 Blood Pressure 104/42 02/23/22 01:21 Pulse Oximetry (%) 100 02/23/22 00:30 Oxygen Delivery Method 02/22/22 16:04 Oxygen Flow Rate (L/min) 2 02/22/22 16:04 [facility] Narrative Medical decision making narrative: Narrative: Differential Diagnosis Differential Diagnosis: Endocarditis Medical Records Medical records reviewed: Yes I reviewed the patient's medical records. Lab Data Lab results reviewed: Yes I reviewed the patient's lab results. Result diagrams: 02/22/22 09:59 02/22/22 09:59 Labs: Lab Results 02/22/22 02/22/22 02/22/22 Range/Units 09:57 09:59 09:59 WBC 7.7 (4.5-11.0) K/mcL RBC 2.95 L (3.59-5.38) M/mcL Hgb 8.4 L (11.2-15.7) g/dL Hct 27.9 L (34.1-44.9) % MCV 94.6 (80.0-100.0) fL MCH 28.5 (26.0-34.0) pg MCHC 30.1 L (31.0-36.0) g/dL RDW 16.2 H (11.5-14.5) % Plt Count 258 (140-440) K/mcL MPV 9.6 (8.8-12.5) fL Immature Gran % (Auto) 0.9 H (0.0-0.5) % Neut % (Auto) 74.9 (38.0-78.0) % Lymph % (Auto) 10.6 L (15.5-49.0) % [place] % (Auto) 10.0 (1.0-12.0) % Eos % (Auto) 2.7 (0.0-7.0) % Baso % (Auto) 0.9 (0.0-2.0) % Lymph # (Auto) 0.82 L (1.50-4.80) K/mcL [place] # (Auto) 0.77 (0.10-0.90) K/mcL Eos # (Auto) 0.21 (0.00-0.70) K/mcL Baso # (Auto) 0.07 (0.00-0.30) K/mcL Immature Gran # 0.07 H (0.00-0.05) K/mcl Absolute Neutrophils 5.77 (1.80-8.00) K/mcL Sodium 134 (133-145) mmol/L Potassium 5.0 (3.3-5.1) mmol/L Chloride 90 L (96-108) mmol/L Carbon Dioxide 30 (22-30) mmol/L Anion Gap 14.0 (8.0-16.0) BUN 43 H (6-20) mg/dL Creatinine 5.4 H* (0.6-1.1) mg/dL GFR Calculation 8 Glucose 92 (70-105) mg/dL Calcium 8.3 L (8.6-10.4) mg/dL Total Bilirubin 0.5 (0.1-1.0) mg/dL AST 20 (<32) U/L ALT 9 (<40) U/L Alkaline Phosphatase 178 H (39-117) U/L Total Protein 7.3 (5.9-8.4) gm/dL Albumin 3.2 (3.2-5.2) gm/dL Globulin 4.1 H (2.2-3.7) gm/dL Albumin/Globulin Ratio 0.8 L (1.0-2.3) Gentamicin Trough 3.6 H* (<0.3) ug/mL Random Vancomycin 14.1 ug/mL Ethyl Alcohol mg/dL mg/dL Ethyl Alcohol g/dL (<0.010) gm/dL 02/22/22 Range/Units 20:17 WBC (4.5-11.0) K/mcL RBC (3.59-5.38) M/mcL Hgb (11.2-15.7) g/dL Hct (34.1-44.9) % MCV (80.0-100.0) fL MCH (26.0-34.0) pg MCHC (31.0-36.0) g/dL RDW (11.5-14.5) % Plt Count (140-440) K/mcL MPV (8.8-12.5) fL Immature Gran % (Auto) (0.0-0.5) % Neut % (Auto) (38.0-78.0) % Lymph % (Auto) (15.5-49.0) % [place] % (Auto) (1.0-12.0) % Eos % (Auto) (0.0-7.0) % Baso % (Auto) (0.0-2.0) % Lymph # (Auto) (1.50-4.80) K/mcL [place] # (Auto) (0.10-0.90) K/mcL Eos # (Auto) (0.00-0.70) K/mcL Baso # (Auto) (0.00-0.30) K/mcL Immature Gran # (0.00-0.05) K/mcl Absolute Neutrophils (1.80-8.00) K/mcL Sodium (133-145) mmol/L Potassium (3.3-5.1) mmol/L Chloride (96-108) mmol/L Carbon Dioxide (22-30) mmol/L Anion Gap (8.0-16.0) BUN (6-20) mg/dL Creatinine (0.6-1.1) mg/dL GFR Calculation Glucose (70-105) mg/dL Calcium (8.6-10.4) mg/dL Total Bilirubin (0.1-1.0) mg/dL AST (<32) U/L ALT (<40) U/L Alkaline Phosphatase (39-117) U/L Total Protein (5.9-8.4) gm/dL Albumin (3.2-5.2) gm/dL Globulin (2.2-3.7) gm/dL Albumin/Globulin Ratio (1.0-2.3) Gentamicin Trough (<0.3) ug/mL Random Vancomycin ug/mL Ethyl Alcohol mg/dL 33.0 mg/dL Ethyl Alcohol g/dL 0.033 H (<0.010) gm/dL Core Measures AMI Core Measures Followed: Yes Discharge Plan Patient/Caregiver Discharge Instructions Pt seen by SCRAP BALER/PA only: No Clinical Impression: Endocarditis Patient Disposition: Still a Patient Condition: Fair Follow up with: Levy Pena DO [Primary Care Provider] - Prescriptions: No Action metoprolol tartrate 100 mg tablet 100 mg PO BID Qty: 60 12RF valsartan 320 mg tablet 320 mg PO QAM Qty: 30 12RF calcium acetate(phosphat bind) 667 mg capsule 667 mg PO .TID with meals Qty: 90 12RF Rx Instructions: Take 1 cap with each meal clopidogrel 75 mg tablet 75 mg PO QDAY Qty: 30 11RF Rx Instructions: Take 4 tabs today only (300 mg), then 1 tablet (75mg) every day therafter aspirin [Enteric Coated Aspirin] 81 mg tablet,delayed release (DR/EC) 81 mg PO QDAY Qty: 90 3RF vancomycin in 0.9 % sodium chl 1 gram/250 mL solution 1 g IV ONCE Qty: 250 0RF Rx Instructions: Give during last hour of HD today gentamicin in NaCl (iso-osm) 100 mg/100 mL piggyback 100 mg IV ONCE Qty: 100 0RF Rx Instructions: Give once at conclusion of HD Plan of Treatment: As above and outline in HPI Restart outpatient BP Rx and PO4 binders.
[2022-02-23] MEDS: ESMOLOL 2,500 MG in PREMIX 1 BAG IV SCH (06:10)
[2022-02-23 08:25] LABS: Amphetamine Screen,Urine Suspect positive; Barbiturate Screen,Urine None detected; Benzodiazepines Screen,Urine None detected; Cannabinoid Screen,Urine None detected; Cocaine Screen,Urine None detected; Opiate Screen,Urine None detected; Oxycodone, Urine Screen None detected; Phencyclidine Screen,Urine None detected
[2022-02-23] MEDS ORDERED: LORazepam 1 MG TABLET PO PRN (09:42)
[2022-02-23 10:13] LABS: Basophils # (Auto) 0.09 K/mcL (0.00-0.30); Basophils % (Auto) 0.9 % (0.0-2.0); Eosinophils # (Auto) 0.18 K/mcL (0.00-0.70); Eosinophils % (Auto) 1.9 % (0.0-7.0); Hematocrit 28.2 % (34.1-44.9); Hemoglobin 8.8 g/dL (11.2-15.7); Lymphocytes # (Auto) 0.89 K/mcL (1.50-4.80); Lymphocytes % (Auto) 9.3 % (15.5-49.0); Mean Cell Volume 93.4 fL (80.0-100.0); Mean Corpuscular HGB Conc 31.2 g/dL (31.0-36.0); Mean Platelet Volume 9.6 fL (8.8-12.5); Monocytes % (Auto) 10.5 % (1.0-12.0); Neutrophils % (Auto) 75.8 % (38.0-78.0); Platelet Count 301 K/mcL (140-440); RBC 3.02 M/mcL (3.59-5.38); Red Cell Distribution Width 16.4 % (11.5-14.5); WBC 9.5 K/mcL (4.5-11.0)
[2022-02-23 10:25] LABS: Vancomycin,Trough 28.9 ug/mL
[2022-02-23 10:25] LABS: ALT/SGPT 118 U/L (<40); AST/SGOT 192 U/L (<32); Albumin 2.9 gm/dL (3.2-5.2); Albumin/Globulin Ratio 0.7 (1.0-2.3); Alkaline Phosphatase 238 U/L (39-117); Bilirubin,Total 0.8 mg/dL (0.1-1.0); Blood Urea Nitrogen 56 mg/dL (6-20); Calcium 8.5 mg/dL (8.6-10.4); Carbon Dioxide 25 mmol/L (22-30); Chloride 90 mmol/L (96-108); Globulin 4.4 gm/dL (2.2-3.7); Glomerular Filtration Rate 7; Glucose 78 mg/dL (70-105)
--- NOTE | 2022-02-23 11:18 | Internal Med History&Physical ---
HPI History of Present Illness Patient information: Note initiated : 02/23/22 at 11:15 am Service Date, if different from initiated Date: [] Patient: Mindy Black a 56 y/o F admitted on for Infection in heart. Chief Complaint: [] History of present illness: Ms. Black is a 56 year old F Presents to the ED sent by her layer off for endocarditis. Patient has been having fevers recently and a new murmur was found by her layer off. Also complains of headaches chills. She has had a cough productive of white sputum. Patient's had a complicated and significant medical history recently. See nephrology notes. History of ascending aortic aneurysm with rupture and repair. Patient with vegetations on the mitral and aortic valve. Significant valvular regurgitation noted on multiple valves. In the ED she was evaluated. Vital signs stable. Patient has been started on treatment with vancomycin and gentamicin. Discussed with the vascular surgeon given concern for infection of the prosthetic aortic graft who felt that there is nothing surgical that could be done regarding the graft Patient denies any IV drug use in the past couple years and denies smoking meth. She does admit to taking a fentanyl pill a couple weeks ago denies any other drug use. Review of Systems: Pertinent positives as above. Denies headache/fever/chills/nausea/vomiting/chest or abdominal pain/cough/dyspnea/diarrhea. Remaining 10 point review of system reviewed negative PFSH PFSH All Active Problems (Updated 02/23/22 @ 06:15 by Dylan Gibson DO) Ulcerative colitis (Chronic) Fatigue (Chronic) Body aches (Chronic) Hypertension (Chronic) Bilateral hearing loss (Chronic) Otosclerosis (Chronic) Conductive hearing loss (Chronic) Vasomotor rhinitis (Chronic) Sensorineural hearing loss (SNHL) (Chronic) ET (eustachian tube disorder) (Chronic) Pulmonary embolism (Chronic) Acute myocardial infarction (Chronic) Crohn's disease (Chronic) Secondary hyperparathyroidism of renal origin (Chronic) Vitamin D deficiency (Chronic) ESRD on hemodialysis (Chronic) Hyperphosphatemia (Chronic) Dependence on renal dialysis (Chronic) Generalized abdominal pain (Chronic Unknown) Other encephalopathy (Chronic) Other anxiety states (Chronic) Chronic renal failure (Chronic) Localized edema due to fluid overload (Chronic) AV graft malfunction (Acute) Metabolic acidosis, NAG, bicarbonate losses (Acute) Encounter for dialysis catheter care (Acute) ESRD (end stage renal disease) on dialysis (Acute) Hypertensive emergency (Acute) Anemia in end-stage renal disease (Acute) Elevated troponin (Acute) Hypertensive emergency (Acute) Elevated troponin (Acute) End-stage renal disease (ESRD) (Acute) Acute respiratory failure with hypoxia (Acute) Other fluid overload (Acute) Community acquired pneumonia (Acute) Gram-positive cocci bacteremia (Acute) Opioid withdrawal (Acute) Diastolic murmur (Acute) Coag negative Staphylococcus bacteremia (Acute) Acute bacterial endocarditis (Acute) Infection of aortic graft (Acute) Endocarditis (Acute) Medical History (Updated 02/23/22 @ 06:15 by Dylan Gibson DO) Acute myocardial infarction Aortic arch dissection Bilateral hearing loss Body aches Chronic renal failure Conductive hearing loss Crohn's disease Dependence on renal dialysis ET (eustachian tube disorder) Fatigue Generalized abdominal pain (Unknown) Hypertension Other anxiety states Other encephalopathy Otosclerosis Pulmonary embolism Sensorineural hearing loss (SNHL) Ulcerative colitis Vasomotor rhinitis Surgical History History of ileostomy (~07/2009) History of thoracic aortic aneurysm repair (~02/2018) Stent Family History Unknown Bleeding disorder Clotting disorder Social History marital status: occupational status: unemployed smoking status: Current every day smoker tobacco type: cigarettes per day: 10 alcohol intake frequency: does not drink substance use type: does not use MEDS/ALLERGIES Home Medications and Allergies Home Medications Medication Instructions Recorded Confirmed Type metoprolol tartrate 100 mg tablet 100 mg PO BID HTN #60 tabs 12/28/21 02/06/22 Rx calcium acetate(phosphat bind) 667 667 mg PO .TID with meals High 01/09/22 02/06/22 Rx mg capsule phosphorous and itching #90 caps valsartan 320 mg tablet 320 mg PO QAM #30 tabs 01/09/22 02/06/22 Rx aspirin 81 mg tablet,delayed 81 mg PO QDAY Clotted AVF #90 tabs 01/18/22 02/06/22 Rx release (Enteric Coated Aspirin) clopidogrel 75 mg tablet 75 mg PO QDAY Clotted AVF #30 tabs 01/18/22 02/06/22 Rx gentamicin 100 mg/100 mL in sodium 100 mg (100 mL) IV ONCE Gm (+) 02/20/22 Rx chloride(iso) intravenous piggyback blood culture #100 mL vancomycin 1 gram/250 mL in 0.9 % 1 g (250 mL) IV ONCE BC (+) #250 mL 02/20/22 Rx sodium chloride intravenous Allergies Allergy/AdvReac Type Severity Reaction Status Date / Time Sulfa (Sulfonamide Allergy Unknown Unknown Verified 02/22/22 09:04 Antibiotics) EXAM Constitutional Vitals: Temp Pulse Resp BP Pulse Ox O2 Del Method O2 Flow Rate 97.9 F 73 21 107/45 99 2 02/22/22 09:00 02/23/22 09:16 02/23/22 09:16 02/23/22 10:46 02/23/22 09:16 02/23/22 07:16 02/23/22 07:16 Exam: General: Alert, Awake, No acute Distress Eyes/N/T: EOMI, PERRL, Head/Neck: neck supple, normocephalic atraumatic CV: RRR, 3/6 SM & 2/6DM, normal s1/s2 Pulm: Clear b/l, no wheezing/rhonchi/rales Abd: soft, nontender, +BS x4 Ext: no clubbing/cyanosis/edema Neuro: Alert, no focal deficits, moves all extremities, CN 2-12 grossly intact, symmetrical strength b/l upper/lower, sensations intact b/l upper/lower Skin: warm/dry, no janeway lesions, osler nodes, splinter hemorrhages DATA Data Completed and Pending Labs: Labs from last 24 hours 02/23/22 02/23/22 02/23/22 09:31 09:30 09:30 WBC RBC Hgb Hct MCV MCH MCHC RDW Plt Count MPV Immature Gran % (Auto) Neut % (Auto) Lymph % (Auto) [place] % (Auto) Eos % (Auto) Baso % (Auto) Lymph # (Auto) [place] # (Auto) Eos # (Auto) Baso # (Auto) Immature Gran # Absolute Neutrophils VBG Lactic Acid 1.5 Sodium 129 L Potassium 6.5 H* Chloride 90 L Carbon Dioxide 25 Anion Gap 14.0 BUN 56 H Creatinine 6.2 H* GFR Calculation 7 Glucose 78 Calcium 8.5 L Total Bilirubin 0.8 AST 192 H ALT 118 H Alkaline Phosphatase 238 H Total Protein 7.3 Albumin 2.9 L Globulin 4.4 H Albumin/Globulin Ratio 0.7 L Gentamicin Trough 2.9 H* Vancomycin Trough 28.9 H* Urine Opiates Screen Ur Opiates Confirm Ur Oxycodone Screen U Oxycod/Oxymor Confirm Urine Methadone Screen Ur Methadone Confirm Ur Barbiturates Screen Ur Barbiturate Confirm Ur Phencyclidine Scrn Urine PCP Confirm Ur Amphetamines Screen U Amphetamines Confirm U Benzodiazepines Scrn Ur Benzodiazepine, Qnt Urine Cocaine Screen Urine Cocaine Confirm U Cannabinoids Confirm U Marijuana (THC) Screen Ethyl Alcohol mg/dL Ethyl Alcohol g/dL 02/23/22 02/23/22 02/22/22 09:30 06:59 20:17 WBC 9.5 RBC 3.02 L Hgb 8.8 L Hct 28.2 L MCV 93.4 MCH 29.1 MCHC 31.2 RDW 16.4 H Plt Count 301 MPV 9.6 Immature Gran % (Auto) 1.6 H Neut % (Auto) 75.8 Lymph % (Auto) 9.3 L [place] % (Auto) 10.5 Eos % (Auto) 1.9 Baso % (Auto) 0.9 Lymph # (Auto) 0.89 L [place] # (Auto) 1.00 H Eos # (Auto) 0.18 Baso # (Auto) 0.09 Immature Gran # 0.15 H Absolute Neutrophils 7.21 VBG Lactic Acid Sodium Potassium Chloride Carbon Dioxide Anion Gap BUN Creatinine GFR Calculation Glucose Calcium Total Bilirubin AST ALT Alkaline Phosphatase Total Protein Albumin Globulin Albumin/Globulin Ratio Gentamicin Trough Vancomycin Trough Urine Opiates Screen None detected Ur Opiates Confirm TNP Ur Oxycodone Screen None detected U Oxycod/Oxymor Confirm TNP Urine Methadone Screen None detected Ur Methadone Confirm TNP Ur Barbiturates Screen None detected Ur Barbiturate Confirm TNP Ur Phencyclidine Scrn None detected Urine PCP Confirm TNP Ur Amphetamines Screen Suspect positive A U Amphetamines Confirm Pending U Benzodiazepines Scrn None detected Ur Benzodiazepine, Qnt TNP Urine Cocaine Screen None detected Urine Cocaine Confirm TNP U Cannabinoids Confirm TNP U Marijuana (THC) Screen None detected Ethyl Alcohol mg/dL 33.0 Ethyl Alcohol g/dL 0.033 H 02/22/22 02/22/22 02/22/22 09:59 09:59 09:57 WBC RBC Hgb Hct MCV MCH MCHC RDW Plt Count MPV Immature Gran % (Auto) Neut % (Auto) Lymph % (Auto) [place] % (Auto) Eos % (Auto) Baso % (Auto) Lymph # (Auto) [place] # (Auto) Eos # (Auto) Baso # (Auto) Immature Gran # Absolute Neutrophils VBG Lactic Acid Sodium 134 Potassium 5.0 Chloride 90 L Carbon Dioxide 30 Anion Gap 14.0 BUN 43 H Creatinine 5.4 H* GFR Calculation 8 Glucose 92 Calcium 8.3 L Total Bilirubin 0.5 AST 20 ALT 9 Alkaline Phosphatase 178 H Total Protein 7.3 Albumin 3.2 Globulin 4.1 H Albumin/Globulin Ratio 0.8 L Gentamicin Trough 3.6 H* Vancomycin Trough Urine Opiates Screen Ur Opiates Confirm Ur Oxycodone Screen U Oxycod/Oxymor Confirm Urine Methadone Screen Ur Methadone Confirm Ur Barbiturates Screen Ur Barbiturate Confirm Ur Phencyclidine Scrn Urine PCP Confirm Ur Amphetamines Screen U Amphetamines Confirm U Benzodiazepines Scrn Ur Benzodiazepine, Qnt Urine Cocaine Screen Urine Cocaine Confirm U Cannabinoids Confirm U Marijuana (THC) Screen Ethyl Alcohol mg/dL TNP Ethyl Alcohol g/dL TNP Preliminary micro results at discharge 02/22/22 11:06 Blood Culture - Preliminary Blood 02/22/22 09:55 Blood Culture - Preliminary Blood 02/22/22 09:48 Blood Culture - Preliminary Blood A/P Narrative A/P Narrative: A: *Endocarditis (MV & AV with CoNS): -echo w/vegetation on MV/AV, mod-sev MR/TR, mod and severe AI. 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
[2022-02-23] MEDS ORDERED: POLYETHYLENE GLYCOL 3350 17 GM PACKET PO PRN (11:59)
[2022-02-23] MEDS ORDERED: SENNOSIDES 1 TABLET PO PRN (11:59)
[2022-02-23] MEDS ORDERED: IPRATROPIUM/ALBUTEROL 3 ML AMPUL.NEB NEB PRN (11:59)
[2022-02-23] MEDS ORDERED: POTASSIUM CHLORIDE 40 MEQ in DEXTROSE 5% IN WATER 500 ML IV PRN (11:59)
[2022-02-23] MEDS ORDERED: MAGNESIUM SULFATE 2 GM/50 ML BAG IV PRN (11:59)
[2022-02-23] MEDS: 0.9 % SODIUM CHLORIDE 10 ML SYRINGE IV SCH ×2 (12:18→21:33)
[2022-02-23] MEDS: ACETAMINOPHEN 325 MG TABLET PO PRN (12:18)
[2022-02-23] MEDS ORDERED: METOPROLOL TARTRATE 5 MG/5 ML VIAL IV PRN (12:43)
--- NOTE | 2022-02-23 12:54 | EKG ---
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 Measurements Intervals [place] Rate: 74 P: 45 AK: 161 QRS: -16 QRSD: 89 T: 44 QT: 433 QTc: 481 Interpretive Statements Sinus rhythm Consider left ventricular hypertrophy Inferior infarct, old Electronically Signed On 02-23-2022 12:53:49 PST by Rickie Snyder M.D. /store/M0/[id number]/[id number]
[2022-02-23] MEDS ORDERED: DARBEPOETIN ALFA 100 MCG/ML VIAL IV SCH (13:00)
--- NOTE | 2022-02-23 13:24 | Nephrology Progress Note ---
SUBJECTIVE Subjective Patient information: Note initiated : 02/23/22 at 12:53 pm Service Date, if different from initiated Date: [] Patient: Mindy Black 56 y/o F admitted on 02/23/22 for Infection in heart. Chief Complaint: [Endocarditis] Principal diagnosis: CoNS Bacterial Endocarditis Interval history: My fear is this patient has been bacteremic since November 2021. Blood cultures on February 17, 2022 showed 2 out of 2 bottles positive for coag negative staph sensitive to vancomycin and gentamicin so the proper antibiotics have been started. Due to the absolute nonavailability of ICU beds, I have discussed the management plan with her vascular surgeon Dr. hSawn Mirza last evening. In addition to saying there is no open beds at [facility], use the totality of the case it is clear that this is no longer early intervention for endocarditis but it is actually months into the course. She is made it this far without any evidence of embolization, stroke, decompensated congestive heart failure... These are the 3 criteria that would warrant emergent vascular surgery. Her echocardiogram showed involvement of both the aortic and mitral valve and she has a [place]Harv[place] patch in her thoracic aorta, Additionally, the Jan 2022 clotting/thrombosis of her AVG with subsequent declot probably did cause a transient bacteremia that was misconstrued as narcotic withdrawal rigors, altered mentation and pain. She has a history of IV drug abuse in the past but she and her both and says she has not used IV drugs in at least a year. There is no toxicology screens up till today, while I would have given her the benefit of the doubt about being "clean" she did score positive for amphetamines. Therefore only her Creator God could tell us whether this is endocarditis from IV drug abuse or dialysis related infection. She received her second dose of vancomycin yesterday and both her gentamicin and vancomycin levels are therapeutic predialysis though I suspect she will be dosed with gent amicin later this evening when dialysis is over. According to up-to-date she has about a 50% mortality as a dialysis patient even with valve replacement, therefore 6 weeks of IV vancomycin and 2 weeks of gentamicin is my plan. She can be discharged when hemodynamically stable and she has 2 sets of negative blood cultures to continue the remainder of her 6 weeks of antibiotics as an outpatient though it is yet to be decided whether its in the dialysis unit or whether we leave a venous needle in her graft and roll her over to the outpatient surgery center for her antibiotic infusions. This wi ll need to be ferret out by case management, administration, and the dialysis unit charge nurse/pipe supervisor. If she were to develop a life-threatening complication requiring emergent surgical evaluation, she would require [facility] to an accepting facility which is easier said than done. All this was explained to patient this morning. Pertinent ROS: Anxiety On esmolol drip Constitutional Vitals: Vital Signs Temp Pulse Resp BP Pulse Ox O2 Del Method O2 Flow Rate 36.6 C 86 18 132/65 94 2 02/23/22 11:58 02/23/22 12:29 02/23/22 12:29 02/23/22 12:15 02/23/22 12:29 02/23/22 11:58 02/23/22 07:16 Period Temp Pulse Resp BP Sys/Stevens Pulse Ox O2 Del Method O2 Flow Rate Last 24 Hr 36.6 C-36.6 C 67-90 0-34 85-153/36-93 90-100 Nasal Cannula- Room Air 2-2 Intake and Output 02/23/22 02/23/22 02/23/22 03:59 11:59 19:59 Intake Total 218 215 Balance 218 215 Weight 51.766 kg Patient Weight 02/24/22 03:59 Weight 51.766 kg Intake & Output: Intake & Output 02/23/22 02/23/22 02/23/22 03:59 11:59 19:59 Intake Total 218 215 Balance 218 215 Weight 51.766 kg Intake: IV 218 215 Brevibloc 2,500 mg In Premix 1 218 215 Bag @ 50 MCG/KG/MIN 15.105 mls/ hr IV .[id number] [facility] Rx#: [id number] Other: Stool Size Small Stool Color Brown Stool Consistency Soft General appearance: mild distress and thin Eye Eye exam: Present EOMI and PERRL; Absent nystagmus or scleral icterus Additional comments: No splinter hemorrhages Neck Neck exam: Absent meningismus Respiratory Respiratory exam: Present normal respiratory exam and CTAB Cardiovascular Cardiovascular exam: Present diastolic murmur and systolic murmur; Absent +S3 GI/Abdominal GI/Abdominal exam: Present soft and diminished bowel sounds Extremities Exam Extremities exam: Absent calf tenderness Additional comments: No Osler nodes No signs of embolization Neurological Exam Neurological exam: Present CN II-XII intact and oriented X3 Additional comments: Decreased auditory since prior COVID infection Psychiatric Psychiatric exam: Present anxious Skin Skin exam: Present dry; Absent petechiae Additional comments: No signs of embolization A/P Assessment and plan (1) Endocarditis: Status: Chronic Comment: More like subacute endocarditis with bacteremia dating back to November 2021 (2) Infection of aortic graft: Status: Acute Comment: No doubt infected given bacteremia as far back as 11/2021 when 2/3 sets of blood cultures (+) for CoNS (3) Coag negative Staphylococcus bacteremia: Status: Acute Comment: CoNS. First noted in 11/2021 hospital admission but thought to be a "contaminant" until developed new murmurs in late Jan 2022 Current sensitivities show vancomycin and gentamicin to be effective (4) Diastolic murmur: Status: Acute Comment: No measurements of vegetations available on TTE, at a facility that cannot do VERONICA... also it wont change initial treatment. (5) Anemia in end-stage renal disease: Status: Acute Comment: Minimize blood work and amp up SARAH therapy (6) End-stage renal disease (ESRD): Status: Acute Comment: HD MWF due to loss of staff thanks to [facility] vaccine mandates. Plan 1. Vanco dose 1 level 15 or less for 6 weeks 2. Gentamicin dose when level less than 2 for 2 weeks 3. Every other day blood cultures until 2 consecutive draws are negative 4. Switch to p.o. captopril and metoprolol with as needed IV Vasotec and metoprolol. Holding parameters based on blood pressure and heart rate written 5. No PICC lines 6. Minimize blood draws 7. Increase Aranesp 8. Increase/resume calcium acetate as phosphate binder 9. Avoidance of any narcotics only have Tylenol or ketorolac for pain. 10. Poor survival and high risk patient for right now I have to admit there is nothing else a vascular surgeon would do after talking Dr. Jose Mirza. Narrative A/P Narrative: As above Plan of Treatment: As above Time Spent With Patient Time: Total time spent is greater than 50% in coordination of care (as documented) at patient's floor/unit and/or counseling patient:
[2022-02-23] MEDS: ENALAPRILAT 1.25 MG/ML VIAL IV PRN (15:22)
[2022-02-23] MEDS ORDERED: NITROGLYCERIN 0.4 MG TAB.SUBL SL ONE (15:32)
[2022-02-23] MEDS: NITROGLYCERIN 0.4 MG TAB.SUBL SL SCH ×2 (15:39→15:40)
--- NOTE | 2022-02-23 16:21 | XRay Report ---
CLINICAL INFORMATION: Chest pain COMPARISON: 12/05/2021 TECHNIQUE: Portable FINDINGS: Mild cardiomegaly is unchanged. Endovascular graft the thoracic arch in stable position. The remainder the mediastinum and pulmonary vessels are normal. Moderate infiltrate in the right mid and lower lung and smaller infiltrate in the left lower lung show modest improvement since the comparison exam less than months ago. Small bilateral pleural effusions noted. IMPRESSION: Moderate right/lower lung and small left lower lung infiltrates which have improved since the comparison x-ray three months ago. Interpreted and Authenticated by: Rickie Fierro 02/23/22
[2022-02-23 16:47] LABS: Creatine Kinase 20 U/L (24-170); Creatine Kinase MB 1.3 ng/mL (<3.7)
[2022-02-23] MEDS: CALCIUM ACETATE 667 MG TABLET PO SCH (17:12)
[2022-02-23] MEDS ORDERED: CAPTOPRIL 12.5 MG TABLET PO SCH (18:00)
[2022-02-23] MEDS: HEPARIN 5,000 UNIT/ML VIAL SQ SCH (21:32)
[2022-02-23] MEDS: DOCUSATE SODIUM 100 MG CAPSULE PO SCH (21:33)
[2022-02-23] MEDS: METOPROLOL TARTRATE 25 MG TABLET PO SCH (21:33)
[2022-02-23] MEDS ORDERED: GENTAMICIN SULFATE IV ONE (21:35)
[2022-02-23] MEDS ORDERED: SODIUM CHLORIDE 0.9% IV ONE (21:35)
[2022-02-23] MEDS: NITROGLYCERIN 0.4 MG TAB.SUBL SL PRN (22:21)
[2022-02-23] MEDS: hydrOXYzine 25 MG TABLET PO PRN (22:21)
[2022-02-23] MEDS ORDERED: GENTAMICIN SULFATE 80 MG/2 ML VIAL ONE (22:31)
[2022-02-24] MEDS: NITROGLYCERIN 0.4 MG TAB.SUBL SL PRN ×3 (02:36→14:00)
[2022-02-24] MEDS: ACETAMINOPHEN 325 MG TABLET PO PRN ×2 (03:22→12:57)
[2022-02-24] MEDS: 0.9 % SODIUM CHLORIDE 10 ML SYRINGE IV SCH ×3 (05:56→21:42)
--- NOTE | 2022-02-24 08:21 | Internal Med Progress Note ---
SUBJECTIVE Subjective Patient information: Note initiated : 02/24/22 at 8:19 am Service Date, if different from initiated Date: [] Patient: Mindy Black a 56 y/o F admitted on 02/23/22 for Infection in heart. Chief Complaint: [] Principal diagnosis: CoNS Bacterial Endocarditis Interval history: History of present illness: Ms. Black is a 56 year old F Presents to the ED sent by her automotive glazier for endocarditis. Patient has been having fevers recently and a new murmur was found by her automotive glazier. Also complains of headaches chills. She has had a cough productive of white sputum. Patient's had a complicated and significant medical history recently. See nephrology notes. History of ascending aortic aneurysm with rupture and repair. Patient with vegetations on the mitral and aortic valve. Significant valvular regurgitation noted on multiple valves. In the ED she was evaluated. Vital signs stable. Patient has been started on treatment with vancomycin and gentamicin. Discussed with the vascular surgeon given concern for infection of the prosthetic aortic graft who felt that there is nothing surgical that could be done regarding the graft Patient denies any IV drug use in the past couple years and denies smoking meth. She does admit to taking a fentanyl pill a couple weeks ago denies any other drug use. 02/24 No overnight events. Patient has some chronic chest pain which she had for w eeks. Cardiac work-up yesterday negative. Continue IV antibiotics follow-up labs with dialysis. Pending cultures. Review of Systems: denies headache/fever/chills/nausea/vomiting/abdominal pain/coug h/dyspnea/diarrhea. Otherwise see above. Constitutional Vitals: Vital Signs Temp Pulse Resp BP Pulse Ox O2 Del Method O2 Flow Rate 98.1 F 86 17 124/49 94 2 02/24/22 04:01 02/24/22 05:02 02/24/22 05:02 02/24/22 05:02 02/24/22 05:02 02/24/22 05:02 02/24/22 05:02 Period Temp Pulse Resp BP Sys/Stevens Pulse Ox O2 Del Method O2 Flow Rate Last 24 Hr 96.4 F-98.1 F 72-94 11-24 91-163/37-94 86-100 Nasal Cannula- Room Air 2-2 Intake and Output 02/23/22 02/24/22 02/24/22 19:59 03:59 11:59 Intake Total 0 100 240 Output Total 700 200 Balance -700 100 40 Weight 51.755 kg Intake & Output: Intake & Output 02/23/22 02/24/22 02/24/22 19:59 03:59 11:59 Intake Total 0 100 240 Output Total 700 200 Balance -700 100 40 Weight 51.755 kg Intake: IV 100 0 Brevibloc 2,500 mg In Premix 1 0 Bag @ 50 MCG/KG/MIN 15.105 mls/ hr IV .[id number] [facility] Rx#: [id number] Gentamicin Sulfate 100 mg In 100 Sodium Chloride 0.9% 100 ml @ 100 mls/hr IV ONCE ONE Rx#: [id number] Oral 0 240 Output: Void Amount 0 Stool 200 Hemodialysis UF 700 Exam: General: Alert, Awake, No acute Distress Eyes/N/T: EOMI, , Head/Neck: neck supple, CV: RRR, 3/6 SM & 2/6 DM, Pulm: Clear b/l, no wheezing/rhonchi/rales Abd: soft, nontender, +BS x4 Ext: no clubbing/cyanosis/edema Neuro: Alert, no focal deficits, moves all extremities, Skin: warm/dry, OBJ DATA Labs CBC & Chem 7: 02/23/22 09:30 02/23/22 09:30 Labs: Abnormal Lab Results 02/23/22 02/23/22 02/23/22 15:45 15:14 09:31 RBC Hgb Hct MCHC RDW Immature Gran % (Auto) Lymph % (Auto) Lymph # (Auto) [place] # (Auto) Immature Gran # Sodium Potassium Chloride BUN Creatinine Calcium AST ALT Alkaline Phosphatase Total Creatine Kinase 20 L Albumin Globulin Albumin/Globulin Ratio Procalcitonin Gentamicin Trough 1.0 H 2.9 H* Vancomycin Trough 28.9 H* Ur Amphetamines Screen Ethyl Alcohol g/dL 02/23/22 02/23/22 02/23/22 09:30 09:30 09:30 RBC 3.02 L Hgb 8.8 L Hct 28.2 L MCHC RDW 16.4 H Immature Gran % (Auto) 1.6 H Lymph % (Auto) 9.3 L Lymph # (Auto) 0.89 L [place] # (Auto) 1.00 H Immature Gran # 0.15 H Sodium 129 L Potassium 6.5 H* Chloride 90 L BUN 56 H Creatinine 6.2 H* Calcium 8.5 L AST 192 H ALT 118 H Alkaline Phosphatase 238 H Total Creatine Kinase Albumin 2.9 L Globulin 4.4 H Albumin/Globulin Ratio 0.7 L Procalcitonin 1.85 H Gentamicin Trough Vancomycin Trough Ur Amphetamines Screen Ethyl Alcohol g/dL 02/23/22 02/22/22 02/22/22 06:59 20:17 09:59 RBC Hgb Hct MCHC RDW Immature Gran % (Auto) Lymph % (Auto) Lymph # (Auto) [place] # (Auto) Immature Gran # Sodium Potassium Chloride 90 L BUN 43 H Creatinine 5.4 H* Calcium 8.3 L AST ALT Alkaline Phosphatase 178 H Total Creatine Kinase Albumin Globulin 4.1 H Albumin/Globulin Ratio 0.8 L Procalcitonin Gentamicin Trough Vancomycin Trough Ur Amphetamines Screen Suspect positive A Ethyl Alcohol g/dL 0.033 H 02/22/22 02/22/22 09:59 09:57 RBC 2.95 L Hgb 8.4 L Hct 27.9 L MCHC 30.1 L RDW 16.2 H Immature Gran % (Auto) 0.9 H Lymph % (Auto) 10.6 L Lymph # (Auto) 0.82 L [place] # (Auto) Immature Gran # 0.07 H Sodium Potassium Chloride BUN Creatinine Calcium AST ALT Alkaline Phosphatase Total Creatine Kinase Albumin Globulin Albumin/Globulin Ratio Procalcitonin Gentamicin Trough 3.6 H* Vancomycin Trough Ur Amphetamines Screen Ethyl Alcohol g/dL Meds: Medications Acetaminophen (Acetaminophen 325 Mg Tablet) 650 mg PO Q6HP PRN; Protocol PRN Reason: Per Pain Protocol/Fever > 101 Last Admin: 02/24/22 03:22 Dose: 650 mg Albuterol/Ipratropium (Ipratropium/Albuterol 3 Ml Ampul.Neb) 3 ml NEB Q4HP PRN PRN Reason: Shortness Of Breath Last Admin: 02/24/22 03:40 Dose: 3 ml Calcium Acetate (Calcium Acetate 667 Mg Tablet) 1,334 mg PO TIDCC ANNIE Last Admin: 02/23/22 17:12 Dose: 1,334 mg Captopril (Captopril 12.5 Mg Tablet) 12.5 mg PO Q12 ANNIE Docusate Sodium (Docusate Sodium 100 Mg Capsule) 100 mg PO BID [facility] Last Admin: 02/23/22 21:33 Dose: Not Given Enalaprilat (Enalaprilat 1.25 Mg/Ml Vial) 1.25 mg IV Q6HP PRN PRN Reason: Hypertension Last Admin: 02/23/22 15:22 Dose: 1.25 mg Heparin Sodium (Porcine) (Heparin 5,000 Unit/Ml Vial) 5,000 unit SQ Q12 [facility] Last Admin: 02/23/22 21:32 Dose: 5,000 unit Hydroxyzine HCl (Hydroxyzine 25 Mg Tablet) 25 mg PO TIDP PRN PRN Reason: Itching / anxiety Last Admin: 02/23/22 22:21 Dose: 25 mg Metoprolol Tartrate (Metoprolol Tartrate 25 Mg Tablet) 25 mg PO Q12 [facility] Last Admin: 02/23/22 21:33 Dose: Not Given Metoprolol Tartrate (Metoprolol Tartrate 5 Mg/5 Ml Vial) 5 mg IV Q4HP PRN PRN Reason: Tachyarrhythmias and/or HTN Nitroglycerin (Nitroglycerin 0.4 Mg Tab.Subl) 0.4 mg SL Q5M PRN PRN Reason: Chest Pain Last Admin: 02/24/22 02:36 Dose: 0.4 mg Ondansetron HCl (Ondansetron 4 Mg/2 Ml Vial) 4 mg IV Q4HP PRN PRN Reason: Nausea And Vomiting Polyethylene Glycol (Polyethylene Glycol 3350 17 Gm Packet) 17 gm PO DAILYP PRN PRN Reason: Constipation Senna (Sennosides 1 Tablet) 2 tab PO DAILYP PRN PRN Reason: Constipation Sodium Chloride (0.9 % Sodium Chloride 10 Ml Syringe) 10 ml IV Q8 [facility] Last Admin: 02/24/22 05:56 Dose: 10 ml A/P Narrative A/P Narrative: A: *Endocarditis (MV & AV with CoNS): -echo w/vegetation on MV/AV, mod-sev MR/TR, mod and severe AI. 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 *Hyperparathyroidism: *Transaminitis: P: -Abx, HD per Nephrology -serial BC's -monitor vitals, f/u labs with HD -esr/crp/pct -cont home BB/ACEI -consider imaging for septic emboli given any signs of other organ dysfunction -pt/ot -ppx: heparin Plan of Treatment: As above Time Spent With Patient Time: Total time spent is greater than 50% in coordination of care (as documented) at patient's floor/unit and/or counseling patient: Total time spent with greater than 50% in coordination of care (as documented) at patient's floor/unit and/or counseling patient:: 35 - 50 minutes QUALITY Stroke Symptom Onset Unknown: No VTE Deep Vein Thrombosis/Pulmonary Embolism Present on Admission: No
[2022-02-24] MEDS: METOPROLOL TARTRATE 25 MG TABLET PO SCH ×2 (08:45→21:41)
[2022-02-24] MEDS: CALCIUM ACETATE 667 MG TABLET PO SCH ×3 (08:45→17:17)
[2022-02-24] MEDS: HEPARIN 5,000 UNIT/ML VIAL SQ SCH ×2 (08:45→21:41)
[2022-02-24] MEDS ORDERED: CAPTOPRIL 12.5 MG TABLET PO SCH (09:00)
[2022-02-24] MEDS: DOCUSATE SODIUM 100 MG CAPSULE PO SCH ×2 (09:01→21:42)
--- NOTE | 2022-02-24 10:35 | Nephrology Progress Note ---
SUBJECTIVE Subjective Patient information: Note initiated : 02/24/22 at 10:26 am Service Date, if different from initiated Date: [] Patient: Mindy Black 56 y/o F admitted on 02/23/22 for Infection in heart. Chief Complaint: [sick] Principal diagnosis: CoNS Bacterial Endocarditis Interval history: Next HD Saturday02/26/2022 will be 1 week of Vanco/gnet therapy, if blood cultures not cleared by then will switch to Daptomycin post HD 3 x week post HD. Monitor for complications of endocartitis nad infected aortic graft with CT head, chest and abd/pelvis with and without IVC looking for emboli on saturday with HD to follow. Vital Signs Temp Pulse Pulse Resp BP BP Pulse Ox 02/24/22 09:00 36.8 C 100 H 24 H 138/86 94 02/24/22 08:51 105 H 25 H 131/67 91 02/24/22 07:00 91 H 19 133/51 99 02/24/22 06:00 85 19 115/44 98 02/24/22 05:02 86 17 124/49 94 02/24/22 04:01 36.7 C 87 14 115/45 100 02/24/22 03:01 94 H 23 H 132/54 93 02/24/22 02:01 89 19 131/48 93 02/23/22 20:00 93 02/24/22 01:01 91 H 20 131/59 95 02/24/22 00:01 36.6 C 86 13 114/51 98 02/23/22 23:01 89 21 144/49 95 02/23/22 22:01 84 21 133/48 93 02/23/22 21:01 76 15 107/42 90 02/23/22 20:01 81 15 97/47 95 02/23/22 19:07 81 18 103/41 97 02/23/22 18:01 79 17 115/94 87 L 02/23/22 17:01 72 17 105/47 92 02/23/22 16:35 78 24 H 94/76 100 02/23/22 16:33 75 15 94/38 99 02/23/22 16:32 18 94/39 02/23/22 16:16 81 17 107/56 100 02/23/22 16:12 79 14 100 02/23/22 16:06 78 11 L 119/43 100 12/16/22 16:01 77 12 108/49 100 02/23/22 15:46 13 113/46 02/23/22 15:43 16 120/46 02/23/22 15:30 81 18 139/66 100 02/23/22 15:26 82 21 158/44 100 02/23/22 15:17 82 17 160/48 100 02/23/22 15:15 81 17 163/48 100 02/23/22 15:00 76 13 121/55 100 02/23/22 14:45 75 20 110/45 100 02/23/22 14:30 79 14 109/51 100 02/23/22 14:15 79 16 112/45 97 02/23/22 14:00 81 15 96/47 97 02/23/22 13:45 82 18 107/46 96 02/23/22 13:30 77 18 113/63 86 L 02/23/22 13:15 80 19 108/60 86 L 02/23/22 13:00 83 16 106/51 94 02/23/22 12:45 82 20 121/52 95 02/23/22 12:30 86 19 137/51 94 02/23/22 14:35 86 L 02/23/22 14:40 92 02/23/22 16:00 36.0 C L 75 108/49 02/23/22 15:48 80 113/46 02/23/22 15:40 81 120/46 02/23/22 15:31 83 139/66 02/23/22 15:20 82 163/48 02/23/22 15:13 82 163/48 02/23/22 14:58 76 121/55 02/23/22 14:44 79 110/45 02/23/22 14:31 74 109/51 02/23/22 14:15 76 112/45 02/23/22 13:57 75 96/47 02/23/22 13:42 35.8 C L 78 107/46 02/23/22 12:29 86 18 94 02/23/22 12:15 82 19 132/65 99 02/23/22 12:00 16 123/53 02/23/22 11:50 36.6 C 80 18 123/51 97 02/23/22 11:31 122/47 02/23/22 11:58 36.6 C 83 22 123/53 96 02/23/22 11:16 106/48 02/23/22 11:01 109/47 02/23/22 10:46 107/45 Intake and Output 02/23/22 02/24/22 02/24/22 19:59 03:59 11:59 Intake Total 0 100 240 Output Total 700 200 Balance -700 100 40 Intake: IV 100 0 Brevibloc 2,500 mg In Premix 1 0 Bag @ 50 MCG/KG/MIN 15.105 mls/ hr IV .[id number] [facility] Rx#: [id number] Gentamicin Sulfate 100 mg In 100 Sodium Chloride 0.9% 100 ml @ 100 mls/hr IV ONCE ONE Rx#: [id number] Oral 0 240 Output: Void Amount 0 Stool 200 Hemodialysis UF 700 Other: Stool Size Moderate Stool Color Brown Stool Consistency Soft Loose Weight 51.755 kg Addendum: Was complaining of chest pain that is nonexertional and not associated with increased cardiac enzymes. Tried some SL NTG and then Nitro paste. Still c/o chest pain and described it as pressure. Keeping in mind she has a multitude of reasons for chest pain, she as (+) amphetamine positive when checked 24 hr after presentation to ED and has admitted to ID drug use including heroin in the past but denies use in past year. The daughter began demanding an increase in pain meds and specifically requested I be called to order OXYCODONE. If refused to he issues with drug use and the relationship between he current medical predicament in terms of endocarditis. Will try IV ketorolac as she is dialysis dependent. Offered to speak with daughter but at this time nurse has not called back to give me her number Pertinent ROS: Becoming clear she is manipulative and has drug abuse issues. I tried to be supportive but I will not be manipulated Additional PMFSH (Level 3 Only): N/A Constitutional Vitals: Vital Signs Temp Pulse Resp BP Pulse Ox O2 Del Method O2 Flow Rate 36.8 C 100 H 24 H 138/86 94 2 02/24/22 09:00 02/24/22 09:00 02/24/22 09:00 02/24/22 09:00 02/24/22 09:00 02/24/22 05:02 02/24/22 05:02 Period Temp Pulse Resp BP Sys/Stevens Pulse Ox O2 Del Method O2 Flow Rate Last 24 Hr 35.8 C-36.8 C 72-105 11-25 94-163/38-94 86-100 Nasal Cannula- Room Air 2-2 Intake and Output 02/23/22 02/24/22 02/24/22 19:59 03:59 11:59 Intake Total 0 100 240 Output Total 700 200 Balance -700 100 40 Weight 51.755 kg Intake & Output: Intake & Output 02/23/22 02/24/22 02/24/22 19:59 03:59 11:59 Intake Total 0 100 240 Output Total 700 200 Balance -700 100 40 Weight 51.755 kg Intake: IV 100 0 Brevibloc 2,500 mg In Premix 1 0 Bag @ 50 MCG/KG/MIN 15.105 mls/ hr IV .[id number] [facility] Rx#: [id number] Gentamicin Sulfate 100 mg In 100 Sodium Chloride 0.9% 100 ml @ 100 mls/hr IV ONCE ONE Rx#: [id number] Oral 0 240 Output: Void Amount 0 Stool 200 Hemodialysis UF 700 Other: Stool Size Moderate Stool Color Brown Stool Consistency Soft Loose General appearance: mild distress and thin Head Head exam: Present normocephalic Cardiovascular Cardiovascular exam: Present diastolic murmur, JVD, +S1, +S2 and systolic murmur Additional comments: AI and MR GI/Abdominal GI/Abdominal exam: Present soft and diminished bowel sounds Skin Skin exam: Present dry; Absent petechiae A/P Assessment and plan (1) Endocarditis: Status: Chronic Comment: More like subacute endocarditis with bacteremia dating back to November 2021 an STEVEN Coat neg Staph with sensitive to Vanco (<2) and Gent First noted in 11/2021 hospital admission but thought to be a "contaminant" until developed new murmurs in late Jan 2022 See Echo results and repeated cultures from Feb 17 and February 20, 2022. Waiting for 1st set of negative cultures (2) IV drug user: Status: Resolved Comment: and patient report abstinence for > 2 yrs...amphetamine positive on admission 02/2022. She has lied to me and now has lost her only "supporter". Plan random drug testing on HD (3) Infection of aortic graft: Status: Acute Comment: No doubt infected given bacteremia as far back as 11/2021 when 2/3 sets of blood cultures (+) for CoNS Needs CTA as we can't do a VERONICA (4) Coag negative Staphylococcus bacteremia: Status: Acute Comment: CoNS. First noted in 11/2021 hospital admission but thought to be a "contaminant" until developed new murmurs in late Jan 2022 Current sensitivities show vancomycin and gentamicin to be effective but if unable to clear blood cultures will switch to daptomycin (5) Anemia in end-stage renal disease: Status: Acute Comment: Minimize blood work and amp up SARAH therapy (6) End-stage renal disease (ESRD): Status: Acute Comment: HD MWF due to loss of staff thanks to [facility] vaccine mandates. (7) Atypical chest pain: Status: Acute Comment: Given SBE will scan for embolic events in chest and and/pelvis, CTA chest and head CT Narrative A/P Narrative: Doubt STEVEN, SBE fits clinical picture. CT scan to look for emboli and or aneurysm (mycotic). No Narcotics Tylenol and Ketorolac for pain. Plan of Treatment: As above Time Spent With Patient Time: Total time spent is greater than 50% in coordination of care (as documented) at patient's floor/unit and/or counseling patient:
[2022-02-24] MEDS: hydrOXYzine 25 MG TABLET PO PRN (10:58)
[2022-02-24] MEDS ORDERED: CALCIUM CARBONATE 500 MG TAB.CHEW CHEWED PRN (13:33)
[2022-02-24] MEDS: FAMOTIDINE 20 MG TABLET PO SCH ×2 (13:38→21:41)
[2022-02-24] MEDS ORDERED: KETOROLAC 30 MG/ML VIAL IV ONE (17:11)
[2022-02-24] MEDS ORDERED: KETOROLAC 15 MG/ML VIAL ONE (17:14)
[2022-02-24] MEDS: NITROGLYCERIN 1 GM OINT.TOP TD SCH (17:17)
[2022-02-25] MEDS: KETOROLAC 30 MG/ML VIAL IV PRN (00:19)
[2022-02-25] MEDS: NITROGLYCERIN 0.4 MG TAB.SUBL SL PRN (00:27)
[2022-02-25] MEDS: ENALAPRILAT 1.25 MG/ML VIAL IV PRN (00:30)
[2022-02-25] MEDS: hydrOXYzine 25 MG TABLET PO PRN (01:56)
[2022-02-25] MEDS: ONDANSETRON 4 MG/2 ML VIAL IV PRN (01:58)
[2022-02-25] MEDS: NITROGLYCERIN 1 GM OINT.TOP TD SCH ×3 (05:43→18:15)
--- NOTE | 2022-02-25 08:26 | Internal Med Progress Note ---
SUBJECTIVE Subjective Patient information: Note initiated : 02/25/22 at 8:24 am Service Date, if different from initiated Date: [] Patient: Mindy Black a 56 y/o F admitted on 02/23/22 for Infection in heart. Chief Complaint: [] Principal diagnosis: CoNS Bacterial Endocarditis Interval history: History of present illness: Ms. Black is a 56 year old F Presents to the ED sent by her sales support engineer for endocarditis. Patient has been having fevers recently and a new murmur was found by her sales support engineer. Also complains of headaches chills. She has had a cough productive of white sputum. Patient's had a complicated and significant medical history recently. See nephrology notes. History of ascending aortic aneurysm with rupture and repair. Patient with vegetations on the mitral and aortic valve. Significant valvular regurgitation noted on multiple valves. In the ED she was evaluated. Vital signs stable. Patient has been started on treatment with vancomycin and gentamicin. Discussed with the vascular surgeon given concern for infection of the prosthetic aortic graft who felt that there is nothing surgical that could be done regarding the graft Patient denies any IV drug use in the past couple years and denies smoking meth. She does admit to taking a fentanyl pill a couple weeks ago denies any other drug use. 02/24 No overnight events. Patient has some chronic chest pain which she had for w eeks. Cardiac work-up yesterday negative. Continue IV antibiotics follow-up labs with dialysis. Pending cultures. 02/25 Sleeping. Easily awakened. No new complaints. Pending follow-up cultures that are negative thus far. Further recs per nephro. Review of Systems: denies headache/fever/chills/nausea/vomiting/abdominal pain/cough/dyspnea/diarrhea. Otherwise see above. Constitutional Vitals: Vital Signs Temp Pulse Resp BP Pulse Ox O2 Del Method O2 Flow Rate 97.2 F 80 16 105/50 95 2 02/25/22 03:15 02/25/22 03:15 02/25/22 03:15 02/25/22 04:01 02/25/22 00:36 02/25/22 03:15 02/24/22 11:49 Period Temp Pulse Resp BP Sys/Stevens Pulse Ox O2 Del Method O2 Flow Rate Last 24 Hr 97.2 F-98.3 F 80-105 8-25 105-178/44-86 91-99 Nasal Cannula- Room Air 2 Intake and Output 02/24/22 02/25/22 02/25/22 19:59 03:59 11:59 Intake Total 100 Output Total 225 50 Balance -225 50 Weight 51.211 kg Intake & Output: Intake & Output 02/24/22 02/25/22 02/25/22 19:59 03:59 11:59 Intake Total 100 Output Total 225 50 Balance -225 50 Weight 51.211 kg Intake: Oral 100 Output: Void Amount 225 50 Other: Urine Appearance Clear Urine Color Yellow Urine Odor Normal Stool Size Moderate Stool Color Brown Stool Consistency Soft Loose # Bowel Movements 1 Exam: General: Alert, Awake, No acute Distress Eyes/N/T: EOMI, , Head/Neck: neck supple, CV: RRR, 3/6 SM & 2/6 DM, Pulm: Clear b/l, no wheezing/rhonchi/rales Abd: soft, nontender, +BS x4 Ext: no clubbing/cyanosis/edema Neuro: Alert, no focal deficits, moves all extremities, Skin: warm/dry, OBJ DATA Labs CBC & Chem 7: 02/23/22 09:30 02/23/22 09:30 Labs: Abnormal Lab Results 02/23/22 02/23/22 02/23/22 15:45 15:14 09:31 RBC Hgb Hct MCHC RDW Immature Gran % (Auto) Lymph % (Auto) Lymph # (Auto) [place] # (Auto) Immature Gran # Sodium Potassium Chloride BUN Creatinine Calcium AST ALT Alkaline Phosphatase Total Creatine Kinase 20 L Albumin Globulin Albumin/Globulin Ratio Procalcitonin Gentamicin Trough 1.0 H 2.9 H* Vancomycin Trough 28.9 H* Ur Amphetamines Screen Ethyl Alcohol g/dL 02/23/22 02/23/22 02/23/22 09:30 09:30 09:30 RBC 3.02 L Hgb 8.8 L Hct 28.2 L MCHC RDW 16.4 H Immature Gran % (Auto) 1.6 H Lymph % (Auto) 9.3 L Lymph # (Auto) 0.89 L [place] # (Auto) 1.00 H Immature Gran # 0.15 H Sodium 129 L Potassium 6.5 H* Chloride 90 L BUN 56 H Creatinine 6.2 H* Calcium 8.5 L AST 192 H ALT 118 H Alkaline Phosphatase 238 H Total Creatine Kinase Albumin 2.9 L Globulin 4.4 H Albumin/Globulin Ratio 0.7 L Procalcitonin 1.85 H Gentamicin Trough Vancomycin Trough Ur Amphetamines Screen Ethyl Alcohol g/dL 02/23/22 02/22/22 02/22/22 06:59 20:17 09:59 RBC Hgb Hct MCHC RDW Immature Gran % (Auto) Lymph % (Auto) Lymph # (Auto) [place] # (Auto) Immature Gran # Sodium Potassium Chloride 90 L BUN 43 H Creatinine 5.4 H* Calcium 8.3 L AST ALT Alkaline Phosphatase 178 H Total Creatine Kinase Albumin Globulin 4.1 H Albumin/Globulin Ratio 0.8 L Procalcitonin Gentamicin Trough Vancomycin Trough Ur Amphetamines Screen Suspect positive A Ethyl Alcohol g/dL 0.033 H 02/22/22 02/22/22 09:59 09:57 RBC 2.95 L Hgb 8.4 L Hct 27.9 L MCHC 30.1 L RDW 16.2 H Immature Gran % (Auto) 0.9 H Lymph % (Auto) 10.6 L Lymph # (Auto) 0.82 L [place] # (Auto) Immature Gran # 0.07 H Sodium Potassium Chloride BUN Creatinine Calcium AST ALT Alkaline Phosphatase Total Creatine Kinase Albumin Globulin Albumin/Globulin Ratio Procalcitonin Gentamicin Trough 3.6 H* Vancomycin Trough Ur Amphetamines Screen Ethyl Alcohol g/dL Meds: Medications Acetaminophen (Acetaminophen 325 Mg Tablet) 650 mg PO Q6HP PRN; Protocol PRN Reason: Per Pain Protocol/Fever > 101 Last Admin: 02/24/22 12:57 Dose: 650 mg Albuterol/Ipratropium (Ipratropium/Albuterol 3 Ml Ampul.Neb) 3 ml NEB Q4HP PRN PRN Reason: Shortness Of Breath Last Admin: 02/24/22 03:40 Dose: 3 ml Calcium Acetate (Calcium Acetate 667 Mg Tablet) 1,334 mg PO TIDCC ANNIE Last Admin: 02/24/22 17:17 Dose: 1,334 mg Calcium Carbonate/Glycine (Calcium Carbonate 500 Mg Tab.Chew) 500 mg CHEWED BIDP PRN PRN Reason: Heartburn Last Admin: 02/24/22 13:38 Dose: 500 mg Docusate Sodium (Docusate Sodium 100 Mg Capsule) 100 mg PO BID ANNIE Last Admin: 02/24/22 21:42 Dose: Not Given Enalaprilat (Enalaprilat 1.25 Mg/Ml Vial) 1.25 mg IV Q6HP PRN PRN Reason: Hypertension Last Admin: 02/25/22 00:30 Dose: 1.25 mg Famotidine (Famotidine 20 Mg Tablet) 20 mg PO HS [facility] Last Admin: 02/24/22 21:41 Dose: 20 mg Heparin Sodium (Porcine) (Heparin 5,000 Unit/Ml Vial) 5,000 unit SQ Q12 [facility] Last Admin: 02/24/22 21:41 Dose: 5,000 unit Hydroxyzine HCl (Hydroxyzine 25 Mg Tablet) 25 mg PO TIDP PRN PRN Reason: Itching / anxiety Last Admin: 02/25/22 01:56 Dose: 25 mg Acetaminophen (Ofirmev) 650 mg in 65 mls @ 130 mls/hr IV Q12 PRN; Protocol PRN Reason: PAIN LEVEL > 6 Ketorolac Tromethamine (Ketorolac 30 Mg/Ml Vial) 15 mg IV Q12 PRN PRN Reason: Pain Last Admin: 02/25/22 00:19 Dose: 15 mg Metoprolol Tartrate (Metoprolol Tartrate 25 Mg Tablet) 25 mg PO Q12 [facility] Last Admin: 02/24/22 21:41 Dose: 25 mg Metoprolol Tartrate (Metoprolol Tartrate 5 Mg/5 Ml Vial) 5 mg IV Q4HP PRN PRN Reason: Tachyarrhythmias and/or HTN Nitroglycerin (Nitroglycerin 0.4 Mg Tab.Subl) 0.4 mg SL Q5M PRN PRN Reason: Chest Pain Last Admin: 02/25/22 00:27 Dose: 0.4 mg Nitroglycerin (Nitroglycerin 1 Gm Oint.Top) 1 gm TD [id number]@1800 [facility] Last Admin: 02/25/22 05:43 Dose: Not Given Ondansetron HCl (Ondansetron 4 Mg/2 Ml Vial) 4 mg IV Q4HP PRN PRN Reason: Nausea And Vomiting Last Admin: 02/25/22 01:58 Dose: 4 mg Polyethylene Glycol (Polyethylene Glycol 3350 17 Gm Packet) 17 gm PO DAILYP PRN PRN Reason: Constipation Senna (Sennosides 1 Tablet) 2 tab PO DAILYP PRN PRN Reason: Constipation Sodium Chloride (0.9 % Sodium Chloride 10 Ml Syringe) 10 ml IV Q8 ANNIE Last Admin: 02/24/22 21:42 Dose: 10 ml A/P Narrative A/P Narrative: A: *Endocarditis (MV & AV with CoNS): -echo w/vegetation on MV/AV, mod-sev MR/TR, mod and severe AI. 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 *Hyperparathyroidism: *Transaminitis: P: -Abx, HD per Nephrology -serial BC's -monitor vitals, f/u labs with HD -esr/crp/pct -cont home BB/ACEI -consider imaging for septic emboli given any signs of other organ dysfunction -pt/ot -ppx: heparin Plan of Treatment: As above Time Spent With Patient Time: Total time spent is greater than 50% in coordination of care (as documented) at patient's floor/unit and/or counseling patient: Total time spent with greater than 50% in coordination of care (as documented) at patient's floor/unit and/or counseling patient:: 25 - 35 minutes QUALITY Stroke Symptom Onset Unknown: No VTE Deep Vein Thrombosis/Pulmonary Embolism Present on Admission: No
[2022-02-25] MEDS: CALCIUM ACETATE 667 MG TABLET PO SCH ×4 (08:54→16:51)
[2022-02-25] MEDS: HEPARIN 5,000 UNIT/ML VIAL SQ SCH ×2 (08:56→21:01)
--- NOTE | 2022-02-25 09:43 | EKG ---
[facility] Test Date: 2022-02-23 Pat Name: Mindy Black Department: ICU Room: 120B Gender: Female Boiler Technician: : 1965 Requested By: Michael Clarke Order Number: [id number] Reading MD: Wilman Fung Measurements Intervals [place] Rate: 84 P: 5 OK: 201 QRS: -44 QRSD: 99 T: 124 QT: 448 QTc: 528 Interpretive Statements Sinus rhythm Electronically Signed On 02-25-2022 9:42:42 PST by Wilman Fung /store/[email or web address]/[id number]
[2022-02-25] MEDS: DOCUSATE SODIUM 100 MG CAPSULE PO SCH ×2 (10:33→20:57)
[2022-02-25] MEDS: METOPROLOL TARTRATE 25 MG TABLET PO SCH ×2 (10:33→21:10)
[2022-02-25] MEDS: 0.9 % SODIUM CHLORIDE 10 ML SYRINGE IV SCH ×3 (12:28→21:20)
--- NOTE | 2022-02-25 16:40 | Nephrology Progress Note ---
SUBJECTIVE Subjective Patient information: Note initiated : 02/25/22 at 4:36 pm Service Date, if different from initiated Date: [] Patient: Mindy Black a 56 y/o F admitted on 02/23/22 for Infection in heart. Chief Complaint: [sick, chest pain] Principal diagnosis: CoNS Bacterial Endocarditis Interval history: Crohn's Dx in past with iliostomy. Hx of IV drug abuse in the past (admits to prior heroin but never documented) and amphetamine/methamphetamine as documented on tox screen this hospitalization 02/2022 HTN with poor control / compliance Prior ruptured thoracic aneurysm endostent repair (Feb 2018 at [facility]) with progressive loss of renal function (SCr 0.7 in 2011 => 2.8 mg/dl in 2018 => 6.2 in 11/2020 and finally 9.0 mg/dl with eGFR in 02/2021 and APPEALS RN initiated via cuffed HD catheter by Dr Schultz. Due to shortage of staff she was placed on TTS 2nd shift and became my HD patient in Spring 2021. In October 2021 with questions of more IVDA and a functioning AVF and her inabil;ity to schedule/show up for surgical removal of her cuffed HD catheter, I removed the catheter myself in the office with local anesthesia w/o incident...as there was no fever no culture of the catheter was performed In November 2021 she was hospitalized with presumptive CAP given pulmonary infiltrate and fever. 1/2 blood cultures were (+) for CoNS and a 3rd set were obtained and apparently she went AMA before the 3rd set returned (+) for CoNS which in a HD patient means and intravascular infection but cannot prove IVDA or dialysis related. Furthermore, there is no D/C summary and no relay this info to the HD unit or myself. By Jan 18, 2022 she she had a clotted AVF...a previously placed cephalic vein stent was in place and there was throbbosis of the venous limb from the brachiocephalic anastomosis to the cephalic vein at the level of the shoulder. She was referred to IR at [facility] and underwent thrombolysis and salvage of the AVF, however she had issues in recovery which so staff at [facility] attributed to drug withdrawal. Again , as I did not see the patient I must rely on the report of those who laid eyes on her. In retrospect, narcotic withdrawal, amphetamine abuse, or sepsis with embolization of infected fragmets of clot are all possible. On 01/23/2022 I noted a DELVIS/HSM and diastolic murmur when rounding in the HD unit. => that day an echocardiogram was ordered. However, she failed to show up for her scheduled echo. In the interval I found the results of the Dec 05 and 2021 blood cultures of which 2/3 sets positive. Blood cultures were ordered on 02/13/2022 for the next HD session but the orders were not transcribed/completed. Final on Feb 17, 2022 two additional sets of blood cultures were obtained and were reported to ER/HD on 02/19/2022. Later that day I ordered Vanco 1000 mg and Gent 100 mg which was given post HD on 02/20/2022. The patient underwent an echocardiogram immediately post-HD on 02/20/2022 - MR/AI and with pLVEF and Aortic and mitral vegitations were reported. On 02/21/2022 I was able to finally get in touch with her and explained the seriousness of her condition an to head to [facility] ED for transfer to a tertiary medical center for CV surgery evaluation. For some reason the patient did not show up to the ED till the following morning 02/22/2022. There was NO BED AVAILABILITY anywhere for this patient. I spoke by phone with Dr Jose Mirza who is familiar with the patient and reviewing the above data two things were clear: 1. This is not STEVEN as the blood cultures have been positive for 2.5 months so any need for acute surgical intervention has long passed. 2. The mortality of valve replacement in a dialysis patient with bacterial endocarditis approaches 50% so she should be treated with ABx for 6 weeks and re-evaluate at that time. To make matters worse is documented continued drug use, and endostent repair in the thoracic aorta and a stent in the venous portion of her AVF. Blood cultures from 02/17/2022 (+) CoNS Blood cultures x 3 on 02/22/2022 are NEGATIVE at 3 days. Pertinent ROS: Sleeping alot per nurse Additional PMFSH (Level 3 Only): As Above in Hx Constitutional Vitals: Vital Signs Temp Pulse Resp BP Pulse Ox O2 Del Method O2 Flow Rate 37.1 C 77 20 115/51 90 2 02/25/22 12:01 02/25/22 09:19 02/25/22 12:01 02/25/22 12:01 02/25/22 12:01 02/25/22 12:01 02/25/22 12:01 Period Temp Pulse Resp BP Sys/Stevens Pulse Ox O2 Del Method O2 Flow Rate Last 24 Hr 36.2 C-37.1 C 77-100 16-24 97-178/46-71 90-98 Nasal Cannula- Room Air 2 Intake and Output 02/25/22 02/25/22 02/25/22 03:59 11:59 19:59 Intake Total 100 700 Output Total 50 Balance 50 700 Intake & Output: Intake & Output 02/25/22 02/25/22 02/25/22 03:59 11:59 19:59 Intake Total 100 700 Output Total 50 Balance 50 700 Intake: Nourishment/Supplement quantity 0 (ml) Oral 100 700 Output: Void Amount 50 Other: Meal Breakfast Lunch Percent of Meal Consumed Refused 100% Feeding Ability Independent Nourishment/Supplement name Nepro Urine Appearance Clear Urine Color Yellow Urine Odor Normal General appearance: disheveled, mild distress and thin Head Head exam: Present normocephalic Eye Eye exam: Present EOMI and PERRL; Absent scleral icterus Respiratory Respiratory exam: Present decreased breath sounds and rhonchi Cardiovascular Cardiovascular exam: Present diastolic murmur and systolic murmur GI/Abdominal GI/Abdominal exam: Present diminished bowel sounds Additional comments: RLQ iseostomy Extremities Exam Extremities exam: Present pedal edema Additional comments: Chronic arterial insufficiency changes mid magallanes and below Neurological Exam Neurological exam: Present CN II-XII intact Additional comments: non focal except 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 Skin Skin exam: Present dry A/P Assessment and plan (1) Endocarditis due to Staphylococcus epidermidis: Status: Acute (2) Coag negative Staphylococcus bacteremia: Status: Acute Comment: CoNS. First noted in 11/2021 hospital admission but thought to be a "contaminant" until developed new murmurs in late Jan 2022 Current sensitivities show vancomycin and gentamicin to be effective but if unable to clear blood cultures will switch to daptomycin (3) IV drug user: Status: Resolved Comment: and patient report abstinence for > 2 yrs...amphetamine positive on admission 02/2022. She has lied to me and now has lost her only "supporter". Plan random drug testing on HD (4) Endocarditis: Status: Chronic Comment: More like subacute endocarditis with bacteremia dating back to November 2021an STEVEN Coat neg Staph with sensitive to Vanco (<2) and Gent First noted in 11/2021 hospital admission but thought to be a "contaminant" until developed new murmurs in late Jan 2022 See Echo results and repeated cultures from Feb 17 and February 20, 2022. Waiting for 1st set of negative cultures, then culture directed ABx thereafter for 6 weeks Do not know if this if IVDA as etiology or HD related...since either is possible outpatient therapy in [facility] for 6 weeks, post HD and via venous needle left in place for Daptomycin adjusted for HD patient given as IV push immediately post HD. That way no pics line and no need for monitoring Rx levels. (5) Anemia in end-stage renal disease: Status: Acute Comment: Minimize blood work and amp up SARAH therapy (6) End-stage renal disease (ESRD): Status: Acute Comment: HD MWF due to loss of staff thanks to [facility] vaccine mandates. (7) Atypical chest pain: Status: Acute Comment: Given SBE will scan for embolic events in chest and and/pelvis, CTA chest and head CT Negative cardiac enzymes Could be withdrawal from amphetamines et al Narrative Plan of Treatment: As above Time Spent With Patient Time: Total time spent is greater than 50% in coordination of care (as documented) at patient's floor/unit and/or counseling patient:
--- NOTE | 2022-02-25 17:04 | Cat Scan Report ---
CLINICAL INFORMATION: Decreased cognition COMPARISON: None. TECHNIQUE: 2.5 mm helical slices were obtained in the skull base to vertex. Following reconstruction, axial reformatted images were reviewed at bone and parenchymal windows. The exam was performed using radiation dose optimization techniques including, but not limited to, automated exposure control, adjustment of the mA and/or kV according to patient size and use of iterative reconstruction technique. FINDINGS: The ventricles, sulci, fissures, and cisterns are slightly enlarged compatible with minimal atrophy.. No extra-axial fluid collections are identified. Small remote cortical-based infarct is seen in the posterior right parietal lobe near vertex. Minimal patchy chronic ischemic change present in the deep cerebral white matter. There is no evidence of hemorrhage, mass effect, or edema. Bone windows show no osseous abnormality. IMPRESSION: Small remote cortical-based infarct in the posterior right parietal lobe near vertex. Minimal atrophy and patchy chronic ischemic changes in the deep cerebral white matter Interpreted and Authenticated by: Rickie Fierro 02/25/22
--- NOTE | 2022-02-25 17:30 | Cat Scan Report ---
CLINICAL INFORMATION: Infection with chest pain. Evaluate for endograft infection pulmonary emboli COMPARISON: Chest CT 10/08/2007. TECHNIQUE: 0.625 mm precontrast images were obtained through the entire entire aorta 80 cc of Isovue-370 were injected intravenously, 20 and 50 seconds later, 0.625 mm helical slices were obtained from the lung apices through the subtrochanteric regions of the femurs. Following reconstruction, 2.5 mm sagittal, coronal and axial reformatted images were processed and reviewed at multiple windows and levels. 7 mm MIP reconstructions were obtained through the lungs to optimize nodule detection.The exam was performed using radiation dose optimization techniques including, but not limited to, automated exposure control, adjustment of the mA and/or kV according to patient size and use of iterative reconstruction technique. FINDINGS: Pulmonary parenchymal windows mild chronic bronchitis with moderate fibrosis in the anterior segment of the right upper lobe minor fibrosis in the lingular region and in the anterior basilar segment of the left lower lobe. Small/moderate right pleural effusion noted. Mediastinal windows show the heart is moderately enlarged with heavy calcification in the mitral valve and mild calcification in aortic valve. Mild calcification seen in the coronary arteries. The central pulmonary arteries are mildly enlarged: main pulmonary artery diameter of 3.4 cm patible with mild pulmonary hypertension. Pulmonary arteries are well opacified-no evidence of embolus. An endovascular graft, in the thoracic aortic arch, commences just proximal to the left subclavian artery origin and extends to the proximal descending segment. Graft appears intact without evidence of strut breakage or other complication. No CT evidence for aortitis. The descending thoracic and abdominal aortic segments are normal caliber (22 mm). Diffuse intimal thickening present throughout the abdominal aorta. Aortic branches contain plaque but no stenoses evident.There is no adenopathy in the mediastinal, hilar or axillary regions. Esophagus is grossly normal. The thyroid is unremarkable. Abdominal images show moderate hepatic enlargement with a liver vertical dimension 18 cm in midclavicular line. There is mild periportal edema. No focal hepatic lesion. Gallbladder and bile ducts are normal. Both adrenal glands and pancreas are normal in size and echotexture. Spleen is mildly enlarged: 14 cm in length. Moderate atrophy of both kidneys compatible with end-stage renal failure appreciated. The left is 7.7 cm the right is 6.7 cm. No focal renal lesions. There is no free air, free fluid or adenopathy. Pelvic images show normal urinary bladder. Retroflexed uterus is normal in size 7.3 x 4 cm with few calcified fibroids present within the uterus. Ovarian regions are normal. Colostomy or ileostomy seen in the right upper quadrant. Post surgical anatomy is difficult to discern without use of enteric contrast. The stomach, remaining small bowel, appendix region and large bowel are grossly normal. Bone windows show no focal osseous abnormality throughout the chest, abdomen or pelvis. Severe T9-T10 degenerative disc disease seen as before. C7-T1, grade 1 spondylolisthesis resulting in moderate bilateral IV foraminal narrowing with possible C8 nerve root impingement. IMPRESSION: 1. The thoracic and abdominal aorta are normal diameter. Endovascular graft in the thoracic aortic arch is intact without complication. No evidence of aortitis. 2. Mild enlargement of the central pulmonary arteries suggestive of pulmonary hypertension. The pulmonary arteries are well opacified without evidence of embolus. 3. Moderate hepatomegaly with periportal edema could indicate primary hepatopathy. Please correlate with LFTs. Mild splenomegaly. 4. Moderate atrophy both kidneys felt end-stage renal disease. 5. Small moderate right pleural effusion. Interpreted and Authenticated by: Rickie Fierro 02/25/22
[2022-02-25] MEDS: FAMOTIDINE 20 MG TABLET PO SCH (21:11)
[2022-02-26] MEDS ORDERED: ACETAMINOPHEN 650 MG/65 ML BAG IV PRN
[2022-02-26] MEDS: 0.9 % SODIUM CHLORIDE 10 ML SYRINGE IV SCH ×3 (05:22→21:21)
[2022-02-26] MEDS: NITROGLYCERIN 1 GM OINT.TOP TD SCH ×4 (06:31→16:49)
--- NOTE | 2022-02-26 07:35 | Internal Med Progress Note ---
SUBJECTIVE Subjective Patient information: Note initiated : 02/26/22 at 7:32 am Service Date, if different from initiated Date: [] Patient: Mindy Black a 56 y/o F admitted on 02/23/22 for Infection in heart. Chief Complaint: [] Principal diagnosis: CoNS Bacterial Endocarditis Interval history: History of present illness: Ms. Black is a 56 year old F Presents to the ED sent by her plate inspector for endocarditis. Patient has been having fevers recently and a new murmur was found by her plate inspector. Also complains of headaches chills. She has had a cough productive of white sputum. Patient's had a complicated and significant medical history recently. See nephrology notes. History of ascending aortic aneurysm with rupture and repair. Patient with vegetations on the mitral and aortic valve. Significant valvular regurgitation noted on multiple valves. In the ED she was evaluated. Vital signs stable. Patient has been started on treatment with vancomycin and gentamicin. Discussed with the vascular surgeon given concern for infection of the prosthetic aortic graft who felt that there is nothing surgical that could be done regarding the graft Patient denies any IV drug use in the past couple years and denies smoking meth. She does admit to taking a fentanyl pill a couple weeks ago denies any other drug use. 02/24 No overnight events. Patient has some chronic chest pain which she had for w eeks. Cardiac work-up yesterday negative. Continue IV antibiotics follow-up labs with dialysis. Pending cultures. 02/25 Sleeping. Easily awakened. No new complaints. Pending follow-up cultures that are negative thus far. Further recs per nephro. 02/26 When further questioned about meth use patient now admits that she did use last week but denies IV use stating she does only smoke it now. No overnight event or new complaints. Review of Systems: denies headache/fever/chills/nausea/vomiting/abdominal pain/cough/dyspnea/diarrhea. Otherwise see above. Constitutional Vitals: Vital Signs Temp Pulse Resp BP Pulse Ox O2 Del Method O2 Flow Rate 97.1 F 75 20 118/45 94 2 02/26/22 03:53 02/26/22 06:23 02/26/22 06:23 02/26/22 03:53 02/26/22 06:23 02/26/22 06:23 02/26/22 06:23 Period Temp Pulse Resp BP Sys/Stevens Pulse Ox O2 Del Method O2 Flow Rate Last 24 Hr 97.1 F-98.8 F 70-94 - 85-118/42-51 85-98 Nasal Cannula- Nasal Cannula 2-2 Intake and Output 02/25/22 02/26/22 02/26/22 19:59 03:59 11:59 Intake Total 700 150 Output Total 0 Balance 700 150 Weight 52.299 kg Intake & Output: Intake & Output 02/25/22 02/26/22 02/26/22 19:59 03:59 11:59 Intake Total 700 150 Output Total 0 Balance 700 150 Weight 52.299 kg Intake: Nourishment/Supplement quantity 0 (ml) Oral 700 150 Output: Void Amount 0 Other: Meal Lunch Percent of Meal Consumed 100% Feeding Ability Independent Nourishment/Supplement name Nepro # Bowel Movements 2 Exam: General: Alert, Awake, No acute Distress Eyes/N/T: EOMI, , Head/Neck: neck supple, CV: RRR, 3/6 SM & 2/6 DM, Pulm: Clear b/l, no wheezing/rhonchi/rales Abd: soft, nontender, +BS x4 Ext: no clubbing/cyanosis/edema Neuro: Alert, no focal deficits, moves all extremities, Skin: warm/dry, OBJ DATA Labs CBC & Chem 7: 02/23/22 09:30 02/23/22 09:30 Labs: Abnormal Lab Results 02/23/22 02/23/22 02/23/22 15:45 15:14 09:31 RBC Hgb Hct RDW Immature Gran % (Auto) Lymph % (Auto) Lymph # (Auto) [place] # (Auto) Immature Gran # Sodium Potassium Chloride BUN Creatinine Calcium AST ALT Alkaline Phosphatase Total Creatine Kinase 20 L Albumin Globulin Albumin/Globulin Ratio Procalcitonin Gentamicin Trough 1.0 H 2.9 H* Vancomycin Trough 28.9 H* Ur Amphetamines Screen 02/23/22 02/23/22 02/23/22 09:30 09:30 09:30 RBC 3.02 L Hgb 8.8 L Hct 28.2 L RDW 16.4 H Immature Gran % (Auto) 1.6 H Lymph % (Auto) 9.3 L Lymph # (Auto) 0.89 L [place] # (Auto) 1.00 H Immature Gran # 0.15 H Sodium 129 L Potassium 6.5 H* Chloride 90 L BUN 56 H Creatinine 6.2 H* Calcium 8.5 L AST 192 H ALT 118 H Alkaline Phosphatase 238 H Total Creatine Kinase Albumin 2.9 L Globulin 4.4 H Albumin/Globulin Ratio 0.7 L Procalcitonin 1.85 H Gentamicin Trough Vancomycin Trough Ur Amphetamines Screen 02/23/22 06:59 RBC Hgb Hct RDW Immature Gran % (Auto) Lymph % (Auto) Lymph # (Auto) [place] # (Auto) Immature Gran # Sodium Potassium Chloride BUN Creatinine Calcium AST ALT Alkaline Phosphatase Total Creatine Kinase Albumin Globulin Albumin/Globulin Ratio Procalcitonin Gentamicin Trough Vancomycin Trough Ur Amphetamines Screen Suspect positive A Meds: Medications Acetaminophen (Acetaminophen 325 Mg Tablet) 650 mg PO Q6HP PRN; Protocol PRN Reason: Per Pain Protocol/Fever > 101 Last Admin: 02/24/22 12:57 Dose: 650 mg Albuterol/Ipratropium (Ipratropium/Albuterol 3 Ml Ampul.Neb) 3 ml NEB Q4HP PRN PRN Reason: Shortness Of Breath Last Admin: 02/24/22 03:40 Dose: 3 ml Calcium Acetate (Calcium Acetate 667 Mg Tablet) 1,334 mg PO TIDCC [facility] Last Admin: 02/25/22 16:51 Dose: 1,334 mg Calcium Carbonate/Glycine (Calcium Carbonate 500 Mg Tab.Chew) 500 mg CHEWED BIDP PRN PRN Reason: Heartburn Last Admin: 02/24/22 13:38 Dose: 500 mg Docusate Sodium (Docusate Sodium 100 Mg Capsule) 100 mg PO BID [facility] Last Admin: 02/25/22 20:57 Dose: Not Given Enalaprilat (Enalaprilat 1.25 Mg/Ml Vial) 1.25 mg IV Q6HP PRN PRN Reason: Hypertension Last Admin: 02/25/22 00:30 Dose: 1.25 mg Famotidine (Famotidine 20 Mg Tablet) 20 mg PO HS [facility] Last Admin: 02/25/22 21:11 Dose: 20 mg Heparin Sodium (Porcine) (Heparin 5,000 Unit/Ml Vial) 5,000 unit SQ Q12 [facility] Last Admin: 02/25/22 21:01 Dose: 5,000 unit Hydroxyzine HCl (Hydroxyzine 25 Mg Tablet) 25 mg PO TIDP PRN PRN Reason: Itching / anxiety Last Admin: 02/25/22 01:56 Dose: 25 mg Acetaminophen (Ofirmev) 650 mg in 65 mls @ 130 mls/hr IV Q12 PRN; Protocol PRN Reason: PAIN LEVEL > 6 Ketorolac Tromethamine (Ketorolac 30 Mg/Ml Vial) 15 mg IV Q12 PRN PRN Reason: Pain Last Admin: 02/25/22 00:19 Dose: 15 mg Metoprolol Tartrate (Metoprolol Tartrate 25 Mg Tablet) 25 mg PO Q12 [facility] Last Admin: 02/25/22 21:10 Dose: 25 mg Metoprolol Tartrate (Metoprolol Tartrate 5 Mg/5 Ml Vial) 5 mg IV Q4HP PRN PRN Reason: Tachyarrhythmias and/or HTN Nitroglycerin (Nitroglycerin 0.4 Mg Tab.Subl) 0.4 mg SL Q5M PRN PRN Reason: Chest Pain Last Admin: 02/25/22 00:27 Dose: 0.4 mg Nitroglycerin (Nitroglycerin 1 Gm Oint.Top) 1 gm TD Q6HX2R@1800 [facility] Last Admin: 02/26/22 06:31 Dose: Not Given Ondansetron HCl (Ondansetron 4 Mg/2 Ml Vial) 4 mg IV Q4HP PRN PRN Reason: Nausea And Vomiting Last Admin: 02/25/22 01:58 Dose: 4 mg Polyethylene Glycol (Polyethylene Glycol 3350 17 Gm Packet) 17 gm PO DAILYP PRN PRN Reason: Constipation Senna (Sennosides 1 Tablet) 2 tab PO DAILYP PRN PRN Reason: Constipation Sodium Chloride (0.9 % Sodium Chloride 10 Ml Syringe) 10 ml IV Q8 [facility] Last Admin: 02/26/22 05:22 Dose: 10 ml A/P Narrative A/P Narrative: A: *Endocarditis (MV & AV with CoNS): -echo w/vegetation on MV/AV, mod-sev MR/TR, mod and severe AI. EF wnl -BC from still neg -CT no obvious septic emobli, old small cerebral infarct *h/o ascending aortic aneurysm s/p graft 2017 and now concern for infected graft: *ESRD: *Anemia, chronic: *HTN: *h/o UC with ileostomy/colectomy *h/o IV meth/heroine abuse: pt denies current use, however, UDS + for meth *Hyperparathyroidism: *Transaminitis: P: -Abx, HD per Nephrology -f/u BC neg -monitor vitals,labs with HD -cont home BB -pt/ot -ppx: heparin Plan of Treatment: As above Time Spent With Patient Time: Total time spent is greater than 50% in coordination of care (as documented) at patient's floor/unit and/or counseling patient: Total time spent with greater than 50% in coordination of care (as documented) at patient's floor/unit and/or counseling patient:: 25 - 35 minutes QUALITY Stroke Symptom Onset Unknown: No VTE Deep Vein Thrombosis/Pulmonary Embolism Present on Admission: No
[2022-02-26] MEDS: DOCUSATE SODIUM 100 MG CAPSULE PO SCH ×2 (09:04→20:08)
[2022-02-26] MEDS: CALCIUM ACETATE 667 MG TABLET PO SCH ×3 (09:05→16:59)
[2022-02-26] MEDS: HEPARIN 5,000 UNIT/ML VIAL SQ SCH ×2 (09:05→21:19)
[2022-02-26] MEDS: METOPROLOL TARTRATE 25 MG TABLET PO SCH ×3 (10:08→21:19)
--- NOTE | 2022-02-26 10:28 | Nephrology Progress Note ---
SUBJECTIVE Subjective Patient information: Note initiated : 02/26/22 at 10:23 am Service Date, if different from initiated Date: [] Patient: Mindy Black 56 y/o F admitted on 02/23/22 for Infection in heart. Chief Complaint: [SICK] Principal diagnosis: CoNS Bacterial Endocarditis Interval history: Crohn's Dx in past with iliostomy. 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 Due to shortage of staff she was placed on TTS 2nd shift and became my HD patient in Spring 2021. In October 2021 with questions of more IVDA and a functioning AVF and her inabil;ity to schedule/show up for surgical removal of her cuffed HD catheter, I removed the catheter myself in the office with local anesthesia w/o incident...as there was no fever no culture of the catheter was performed In November 2021 she was hospitalized with presumptive CAP given pulmonary infiltrate and fever. 1/2 blood cultures were (+) for CoNS and a 3rd set were obtained and apparently she went AMA before the 3rd set returned (+) for CoNS which in a HD patient means and intravascular infection but cannot prove IVDA or dialysis related. Furthermore, there is no D/C summary and no relay this info to the HD unit or myself. By Jan 18, 2022 she she had a clotted AVF...a previously placed cephalic vein stent was in place and there was throbbosis of the venous limb from the brachiocephalic anastomosis to the cephalic vein at the level of the shoulder. She was referred to IR at [facility] and underwent thrombolysis and salvage of the AVF, however she had issues in recovery which so staff at [facility] attributed to drug withdrawal. Again , as I did not see the patient I must rely on the report of those who laid eyes on her. In retrospect, narcotic withdrawal, amphetamine abuse, or sepsis with embolization of infected fragmets of clot are all possible. On 01/23/2022 I noted a DELVIS/HSM and diastolic murmur when rounding in the HD unit. => that day an echocardiogram was ordered. However, she failed to show up for her scheduled echo. In the interval I found the results of the Dec 05 and 2021 blood cultures of which 2/3 sets positive. Blood cultures were ordered on 02/13/2022 for the next HD session but the orders were not transcribed/completed. Final on Feb 17, 2022 two additional sets of blood cultures were obtained and were reported to ER/HD on 02/19/2022. Later that day I ordered Vanco 1000 mg and Gent 100 mg which was given post HD on 02/20/2022. The patient underwent an echocardiogram immediately post-HD on 02/20/2022 - MR/AI and with pLVEF and Aortic and mitral vegitations were reported. On 02/21/2022 I was able to finally get in touch with her and explained the seriousness of her condition an to head to [facility] ED for transfer to a tertiary medical center for CV surgery evaluation. For some reason the patient did not show up to the ED till the following morning 02/22/2022. There was NO BED AVAILABILITY anywhere for this patient. I spoke by phone with Dr Jose Mirza who is familiar with the patient and reviewing the above data two things were clear: 1. This is not STEVEN as the blood cultures have been positive for 2.5 months so any need for acute surgical intervention has long passed. 2. The mortality of valve replacement in a dialysis patient with bacterial endocarditis approaches 50% so she should be treated with ABx for 6 weeks and re-evaluate at that time. To make matters worse is documented continued drug use, and endostent repair in the thoracic aorta and a stent in the venous portion of her AVF. Blood cultures from 02/17/2022 (+) CoNS Blood cultures x 3 on 02/22/2022 are NEGATIVE at 3 days. Spoke with [facility] micro lab...CoNS is sensitive to daptomycin which if some pays for would be much easier go give as an IVP at end of HD. Will ask licensed master social worker to arrange. 12/mg per Kg post HD on and Sat as outpatient and 15 mg post HD on Saturday when discharged. Pertinent ROS: Sleeping alot per nurse Additional PMFSH (Level 3 Only): As Above in Hx Constitutional Vitals: Vital Signs Temp Pulse Resp BP Pulse Ox O2 Del Method O2 Flow Rate 36.3 C 75 20 114/50 98 2 02/26/22 08:00 02/26/22 06:23 02/26/22 08:00 02/26/22 08:00 02/26/22 08:00 02/26/22 08:00 02/26/22 08:00 Period Temp Pulse Resp BP Sys/Stevens Pulse Ox O2 Del Method O2 Flow Rate Last 24 Hr 36.2 C-37.1 C 70-94 - 85-118/42-51 85-98 Nasal Cannula- Room Air 2-2 Intake and Output 02/25/22 02/26/22 02/26/22 19:59 03:59 11:59 Intake Total 700 150 Output Total 0 Balance 700 150 Weight 52.299 kg Intake & Output: Intake & Output 02/25/22 02/26/22 02/26/22 19:59 03:59 11:59 Intake Total 700 150 Output Total 0 Balance 700 150 Weight 52.299 kg Intake: Nourishment/Supplement quantity 0 (ml) Oral 700 150 Output: Void Amount 0 Other: Meal Lunch Percent of Meal Consumed 100% Feeding Ability Independent Nourishment/Supplement name Nepro # Bowel Movements 2 General appearance: disheveled and thin Exam: Awake and diminished hearing Has already eaten breakfast by 845 Head Head exam: Present normocephalic Eye Eye exam: Present EOMI and PERRL; Absent scleral icterus Neck Neck exam: Absent meningismus Respiratory Respiratory exam: Present rhonchi Cardiovascular Cardiovascular exam: Present normal rate and rhythm, diastolic murmur, +S1, +S2 and systolic murmur GI/Abdominal Additional comments: Right lower quadrant ileostomy Extremities Exam Extremities exam: Absent pedal edema Neurological Exam Neurological exam: Present CN II-XII intact Skin Skin exam: Present dry A/P Assessment and plan (1) Endocarditis due to Staphylococcus epidermidis: Status: Acute Comment: Planning 6 weeks of daptomycin 500 mg after dialysis and Saturday 750 mg after dialysis on Tuesdays (2) IV drug user: Status: Resolved Comment: and patient report abstinence for > 2 yrs...amphetamine positive on admission 02/2022. She has lied to me and now has lost her only "supporter". Plan random drug testing on HD (3) Anemia in end-stage renal disease: Status: Acute Comment: Minimize blood work and amp up SARAH therapy (4) End-stage renal disease (ESRD): Status: Acute Comment: HD MWF while hospitalized and back to her usual TTS outpatient schedule with antibiotic infusion to follow once discharged. Narrative A/P Narrative: As subsequent blood cultures are negative and her CT scans her surprisingly unremarkable, she can be discharged as soon as case management is able to arrange outpatient IV antibiotic therapy as ordered this morning. Still would like to avoid the use of a PICC line and have antibiotics given postdialysis either in the hemodialysis unit or had over to outpatient surgery for daptomycin IV push via her venous dialysis needle which can then be removed either by dialysis staff or the outpatient surgical staff. Continued drug use and abuse and noncompliance is the reason she is in her current situation. Since her bacteremia is months old, there is no immediate complications noted Mayse will just treat and see what happens with antibiotics provided she shows up Random drug testing will be performed Periodic blood cultures, C-reactive protein, ESR, also be tracked. The beauty of daptomycin is the least we do not have to worry about drug levels... But it does have a fair amount of GI side effects No more blood cultures in the hospital unless she has rigors chills or fever Plan of Treatment: As above Time Spent With Patient Time: Total time spent is greater than 50% in coordination of care (as documented) at patient's floor/unit and/or counseling patient:
--- NOTE | 2022-02-26 10:28 | Discharge Summary ---
Discharge Provider Provider IMPORTANT FOLLOW-UP INFORMATION FOR PCP: Patient information: Note initiated : 02/26/22 at 10:26 am Service Date, if different from initiated Date: [] Patient: Mindy Black 56 y/o F admitted on 02/23/22 for Infection in heart. Chief Complaint: [] Date of admission: 02/23/22 11:45 Discharge date: 02/27/22 Primary care physician: Levy Pena DO Consults: 02/23/22 Consult to Physician [CONS] Stat Comment: Consulting Provider: Michael Clarke Reason For Exam: Physician to Consult Consult to Physician [CONS] Stat Comment: Consulting Provider: Levy Bashir Reason For Exam: Physician to Consult COURSE Hospital Course Hospital course: History of present illness: Ms. Black is a 56 year old F Presents to the ED sent by her cushion builder for endocarditis. Patient has been having fevers recently and a new murmur was found by her cushion builder. Also complains of headaches chills. She has had a cough productive of white sputum. Patient's had a complicated and significant medical history recently. See nephrology notes. History of ascending aortic aneurysm with rupture and repair. Patient with vegetations on the mitral and aortic valve. Significant valvular regurgitation noted on multiple valves. In the ED she was evaluated. Vital signs stable. Patient has been started on treatment with vancomycin and gentamicin. Discussed with the vascular surgeon given concern for infection of the prosthetic aortic graft who felt that there is nothing surgical that could be done regarding the graft Patient denies any IV drug use in the past couple years and denies smoking meth. She does admit to taking a fentanyl pill a couple weeks ago denies any other drug use. 02/24 No overnight events. Patient has some chronic chest pain which she had for weeks. Cardiac work-up yesterday negative. Continue IV antibiotics follow-up labs with dialysis. Pending cultures. 02/25 Sleeping. Easily awakened. No new complaints. Pending follow-up cultures that are negative thus far. Further recs per nephro. 02/26 When further questioned about meth use patient now admits that she did use last week but denies IV use stating she does only smoke it now. No overnight event or new complaints. 02/27 No changes overnight. No new complaints. Follow-up labs improved. Anemia chronic. A: *Endocarditis (MV & AV with CoNS): -echo w/vegetation on MV/AV, mod-sev MR/TR, mod and severe AI. EF wnl -BC 15 neg *h/o ascending aortic aneurysm s/p graft 2018 and now concern for infected graft: *ESRD: *Anemia, chronic: *HTN: *h/o UC with ileostomy/colectomy *h/o IV meth/heroine abuse: pt denies current use, however, UDS + for meth *Hyperparathyroidism: *Transaminitis: P: -Abx per Nephrology Discharge diagnosis: Coag negative staph endocarditis concern for aortic aneurysm graft infectio Secondary discharge diagnosis: End-stage renal disease chronic anemia hypertension history of ulcerative colitis methamphetamine abuse hypoparathyroidism transaminitis Time Spent with Patient Time attestation: Total time spent providing and/or coordinating discharge services: Time spent: Greater than 30 minutes EXAM Constitutional Vitals: Temp Pulse Resp BP Pulse Ox O2 Del Method O2 Flow Rate 97.4 F 75 20 114/50 98 2 02/26/22 08:00 02/26/22 06:23 02/26/22 08:00 02/26/22 08:00 02/26/22 08:00 02/26/22 08:00 02/26/22 08:00 Discharge Data Data Completed and Pending Labs on day of discharge: Preliminary micro results at discharge 02/22/22 09:55 Blood Culture - Preliminary Blood 02/22/22 09:48 Blood Culture - Preliminary Blood 02/22/22 11:06 Blood Culture - Preliminary Blood Discharge Plan Patient/Caregiver Discharge Instructions Activity: increase activity as tolerated Diet: Renal Prescriptions: Continued valsartan 320 mg tablet 320 mg PO QDAY aspirin 81 mg tablet,delayed release (DR/EC) 81 mg PO QDAY clopidogrel 75 mg tablet 75 mg PO QDAY metoprolol tartrate 100 mg tablet 100 tab PO BID calcium acetate(phosphat bind) 667 mg capsule 667 mg PO TID No Action daptomycin 500 mg recon soln 500 mg IV .Q and sat Qty: 1 12RF Rx Instructions: administer IVP over 10 min at end of HD by HD nurse daptomycin 500 mg recon soln 750 mg IV .Q Qty: 1 6RF Rx Instructions: administer over 10 mins every Saturday post HD by dialysis nurse at the end of HD Follow Up Plan Follow up with: Levy Pena DO [Primary Care Provider] - Levy Bashir MD [Physician] - Patient Disposition: Home, Self-Care Plan of Treatment: As above Prognosis: Fair Overall status at discharge: patient is progressing back to baseline Discharge Orders: Discharge Order (Routine); Ordered 02/27/22 Ordered By: Michael Clarke [facility] VTE Deep Vein Thrombosis/Pulmonary Embolism Present on Admission: No
[2022-02-26] MEDS: NITROGLYCERIN 0.4 MG TAB.SUBL SL PRN (12:20)
[2022-02-26] MEDS: hydrOXYzine 25 MG TABLET PO PRN (13:02)
[2022-02-26] MEDS: KETOROLAC 30 MG/ML VIAL IV PRN (13:23)
[2022-02-26] MEDS: ONDANSETRON 4 MG/2 ML VIAL IV PRN (13:30)
[2022-02-26] MEDS ORDERED: KETOROLAC 15 MG/ML VIAL IV PRN (13:30)
[2022-02-26 14:51] LABS: Hematocrit 25.5 % (34.1-44.9); Hemoglobin 8.2 g/dL (11.2-15.7); Mean Cell Volume 92.7 fL (80.0-100.0); Mean Corpuscular HGB Conc 32.2 g/dL (31.0-36.0); Mean Platelet Volume 9.4 fL (8.8-12.5); Platelet Count 275 K/mcL (140-440); RBC 2.75 M/mcL (3.59-5.38); Red Cell Distribution Width 17.2 % (11.5-14.5); WBC 8.2 K/mcL (4.5-11.0)
[2022-02-26] MEDS ORDERED: DAPTOmycin 500 MG VIAL IV SCH (15:00)
[2022-02-26 15:18] LABS: Erythrocyte Sedimentation Rate 73 mm/hr (0-30)
[2022-02-26 15:19] LABS: Parathyroid Hormone Intact-SO 380.4 pg/mL (15.0-65.0)
[2022-02-26 15:21] LABS: Vancomycin,Trough 10.1 ug/mL
[2022-02-26 15:22] LABS: Albumin 3.2 gm/dL (3.2-5.2); Calcium 8.1 mg/dL (8.6-10.4); Complement C3 75.4 mg/dL (90.0-180.0); Phosphorous 2.3 mg/dL (2.5-4.5)
[2022-02-26 15:54] LABS: Anisocytosis 1+ (None Seen); Band Neutrophils % 1 % (0-10); Eosinophils % (Manual) 2 % (0-7); Lymphocytes % 5 % (15-49); Monocytes % (Manual) 1 % (1-12); Platelet Estimate NORMAL (Normal); RBC Morphology ABNORMAL (Normal); Segmented Neutrophils % 91 % (38-78)
[2022-02-26] MEDS: FAMOTIDINE 20 MG TABLET PO SCH (21:20)
[2022-02-27] MEDS: 0.9 % SODIUM CHLORIDE 10 ML SYRINGE IV SCH (05:00)
[2022-02-27] MEDS: NITROGLYCERIN 1 GM OINT.TOP TD SCH (05:00)
--- NOTE | 2022-02-27 08:27 | Internal Med Progress Note ---
SUBJECTIVE Subjective Patient information: Note initiated : 02/27/22 at 8:26 am Service Date, if different from initiated Date: [] Patient: Mindy Black a 56 y/o F admitted on 02/23/22 for Infection in heart. Chief Complaint: [] Principal diagnosis: CoNS Bacterial Endocarditis Interval history: History of present illness: Ms. Black is a 56 year old F Presents to the ED sent by her processing archivist for endocarditis. Patient has been having fevers recently and a new murmur was found by her processing archivist. Also complains of headaches chills. She has had a cough productive of white sputum. Patient's had a complicated and significant medical history recently. See nephrology notes. History of ascending aortic aneurysm with rupture and repair. Patient with vegetations on the mitral and aortic valve. Significant valvular regurgitation noted on multiple valves. In the ED she was evaluated. Vital signs stable. Patient has been started on treatment with vancomycin and gentamicin. Discussed with the vascular surgeon given concern for infection of the prosthetic aortic graft who felt that there is nothing surgical that could be done regarding the graft Patient denies any IV drug use in the past couple years and denies smoking meth. She does admit to taking a fentanyl pill a couple weeks ago denies any other drug use. 02/24 No overnight events. Patient has some chronic chest pain which she had for w eeks. Cardiac work-up yesterday negative. Continue IV antibiotics follow-up labs with dialysis. Pending cultures. 02/25 Sleeping. Easily awakened. No new complaints. Pending follow-up cultures that are negative thus far. Further recs per nephro. 02/26 When further questioned about meth use patient now admits that she did use last week but denies IV use stating she does only smoke it now. No overnight event or new complaints. 02/27 No changes overnight. No new complaints. Follow-up labs improved. Anemia chronic. Review of Systems: denies headache/fever/chills/nausea/vomiting/abdominal pain/cough/dyspnea/diarrhea. Otherwise see above. Constitutional Vitals: Vital Signs Temp Pulse Resp BP Pulse Ox O2 Del Method O2 Flow Rate 97.6 F 88 16 117/48 94 2 02/27/22 04:01 02/27/22 04:01 02/27/22 04:01 02/27/22 04:01 02/27/22 04:01 02/26/22 20:30 02/26/22 20:30 Period Temp Pulse Resp BP Sys/Stevens Pulse Ox O2 Del Method O2 Flow Rate Last 24 Hr 96.4 F-98.3 F 83-101 16-16 96-186/41-106 85-100 Nasal Cannula 2 Intake and Output 02/26/22 02/27/22 02/27/22 19:59 03:59 11:59 Intake Total 240 240 Output Total 1000 200 Balance -760 40 Weight 65.487 kg Intake & Output: Intake & Output 02/26/22 02/27/22 02/27/22 19:59 03:59 11:59 Intake Total 240 240 Output Total 1000 200 Balance -760 40 Weight 65.487 kg Intake: Oral 240 240 Output: Void Amount 200 Hemodialysis UF 1000 Other: Meal Dinner Percent of Meal Consumed 100% Feeding Ability Independent Exam: General: Alert, Awake, No acute Distress Eyes/N/T: EOMI, , Head/Neck: neck supple, CV: RRR, 3/6 SM & 2/6 DM, Pulm: Clear b/l, no wheezing/rhonchi/rales Abd: soft, nontender, +BS x4 Ext: no clubbing/cyanosis/edema Neuro: Alert, no focal deficits, moves all extremities, Skin: warm/dry, OBJ DATA Labs CBC & Chem 7: 02/26/22 13:50 02/26/22 13:50 Labs: Abnormal Lab Results 02/26/22 02/26/22 02/26/22 13:50 13:50 13:50 RBC Hgb Hct RDW Seg Neutrophils % Lymphocytes % RBC Morphology Anisocytosis ESR Chloride Carbon Dioxide Creatinine Glucose Calcium Phosphorus PTH Intact 380.4 H Gentamicin Trough 1.2 H Complement C3 75.4 L 02/26/22 02/26/22 13:50 13:50 RBC 2.75 L Hgb 8.2 L Hct 25.5 L RDW 17.2 H Seg Neutrophils % 91 H Lymphocytes % 5 L RBC Morphology Abnormal A Anisocytosis 1+ A ESR 73 H Chloride 90 L Carbon Dioxide 33 H Creatinine 2.9 H Glucose 117 H Calcium 8.1 L Phosphorus 2.3 L PTH Intact Gentamicin Trough Complement C3 Meds: Medications Acetaminophen (Acetaminophen 325 Mg Tablet) 650 mg PO Q6HP PRN; Protocol PRN Reason: Per Pain Protocol/Fever > 101 Last Admin: 02/24/22 12:57 Dose: 650 mg Albuterol/Ipratropium (Ipratropium/Albuterol 3 Ml Ampul.Neb) 3 ml NEB Q4HP PRN PRN Reason: Shortness Of Breath Last Admin: 02/24/22 03:40 Dose: 3 ml Calcium Acetate (Calcium Acetate 667 Mg Tablet) 1,334 mg PO TIDCC [facility] Last Admin: 02/26/22 16:59 Dose: Not Given Calcium Carbonate/Glycine (Calcium Carbonate 500 Mg Tab.Chew) 500 mg CHEWED BIDP PRN PRN Reason: Heartburn Last Admin: 02/24/22 13:38 Dose: 500 mg Docusate Sodium (Docusate Sodium 100 Mg Capsule) 100 mg PO BID [facility] Last Admin: 02/26/22 20:08 Dose: Not Given Enalaprilat (Enalaprilat 1.25 Mg/Ml Vial) 1.25 mg IV Q6HP PRN PRN Reason: Hypertension Last Admin: 02/25/22 00:30 Dose: 1.25 mg Famotidine (Famotidine 20 Mg Tablet) 20 mg PO HS [facility] Last Admin: 02/26/22 21:20 Dose: 20 mg Heparin Sodium (Porcine) (Heparin 5,000 Unit/Ml Vial) 5,000 unit SQ Q12 [facility] Last Admin: 02/26/22 21:19 Dose: 5,000 unit Hydroxyzine HCl (Hydroxyzine 25 Mg Tablet) 25 mg PO TIDP PRN PRN Reason: Itching / anxiety Last Admin: 02/26/22 13:02 Dose: 25 mg Acetaminophen (Ofirmev) 650 mg in 65 mls @ 130 mls/hr IV Q12 PRN; Protocol PRN Reason: PAIN LEVEL > 6 Ketorolac Tromethamine (Ketorolac 15 Mg/Ml Vial) 15 mg IV Q12HP PRN PRN Reason: Pain Metoprolol Tartrate (Metoprolol Tartrate 25 Mg Tablet) 25 mg PO Q12 [facility] Last Admin: 02/26/22 21:19 Dose: 25 mg Metoprolol Tartrate (Metoprolol Tartrate 5 Mg/5 Ml Vial) 5 mg IV Q4HP PRN PRN Reason: Tachyarrhythmias and/or HTN Nitroglycerin (Nitroglycerin 0.4 Mg Tab.Subl) 0.4 mg SL Q5M PRN PRN Reason: Chest Pain Last Admin: 02/26/22 12:20 Dose: 0.4 mg Nitroglycerin (Nitroglycerin 1 Gm Oint.Top) 1 gm TD Q6HX2R@1800 [facility] Last Admin: 02/27/22 05:00 Dose: Not Given Ondansetron HCl (Ondansetron 4 Mg/2 Ml Vial) 4 mg IV Q4HP PRN PRN Reason: Nausea And Vomiting Last Admin: 02/26/22 13:30 Dose: 4 mg Polyethylene Glycol (Polyethylene Glycol 3350 17 Gm Packet) 17 gm PO DAILYP PRN PRN Reason: Constipation Senna (Sennosides 1 Tablet) 2 tab PO DAILYP PRN PRN Reason: Constipation Sodium Chloride (0.9 % Sodium Chloride 10 Ml Syringe) 10 ml IV Q8 [facility] Last Admin: 02/27/22 05:00 Dose: 10 ml A/P Narrative A/P Narrative: A: *Endocarditis (MV & AV with CoNS): -echo w/vegetation on MV/AV, mod-sev MR/TR, mod and severe AI. EF wnl -BC from neg -CT no obvious septic emobli, old small cerebral infarct *h/o ascending aortic aneurysm s/p graft 2017 and now concern for infected graft: *ESRD: *Anemia, chronic: *HTN: *h/o UC with ileostomy/colectomy *h/o IV meth/heroine abuse: pt denies current use, however, UDS + for meth *Hyperparathyroidism: *Transaminitis: P: -Abx, HD per Nephrology -f/u BC neg -monitor vitals,labs with HD -cont home BB -pt/ot -ppx: heparin Plan of Treatment: As above Time Spent With Patient Time: Total time spent is greater than 50% in coordination of care (as documented) at patient's floor/unit and/or counseling patient: Total time spent with greater than 50% in coordination of care (as documented) at patient's floor/unit and/or counseling patient:: 25 - 35 minutes QUALITY Stroke Symptom Onset Unknown: No VTE Deep Vein Thrombosis/Pulmonary Embolism Present on Admission: No
[2022-02-27] MEDS: HEPARIN 5,000 UNIT/ML VIAL SQ SCH (08:41)
[2022-02-27] MEDS: METOPROLOL TARTRATE 25 MG TABLET PO SCH (08:41)
[2022-02-27] MEDS: CALCIUM ACETATE 667 MG TABLET PO SCH (08:42)
[2022-02-27] MEDS: DOCUSATE SODIUM 100 MG CAPSULE PO SCH (09:06)
--- NOTE | 2022-02-27 10:10 | Nephrology Progress Note ---
SUBJECTIVE Subjective Patient information: Note initiated : 02/27/22 at 10:09 am Service Date, if different from initiated Date: [] Patient: Mindy Black 56 y/o F admitted on 02/23/22 for Infection in heart. Chief Complaint: sick[] Principal diagnosis: CoNS Bacterial Endocarditis Interval history: Vital Signs Temp Pulse Resp BP Pulse Ox O2 Del Method O2 Flow Rate 02/27/22 08:00 Room Air 02/27/22 08:36 36.2 C 88 110/72 95 Room Air 02/27/22 06:01 109/56 02/27/22 04:01 36.4 C 88 16 117/48 94 02/27/22 00:28 122/106 02/27/22 00:01 36.3 C 83 104/41 98 02/26/22 22:01 93 H 109/53 91 02/26/22 20:30 Nasal Cannula 2 02/26/22 20:30 36.8 C 88 16 112/48 100 02/26/22 18:01 88 112/47 100 02/26/22 16:02 36.6 C 92 H 16 121/51 100 02/26/22 15:13 94 H 162/54 92 02/26/22 15:01 88 121/50 85 L 02/26/22 14:46 96 H 131/44 91 02/26/22 14:31 99 H 182/55 100 02/26/22 14:16 166/50 02/26/22 14:01 95 H 175/60 100 02/26/22 13:46 94 H 149/57 100 02/26/22 13:31 96 H 186/60 100 02/26/22 13:17 93 H 177/56 100 02/26/22 13:01 90 164/52 100 02/26/22 12:46 87 131/53 100 02/26/22 12:41 87 128/51 100 02/26/22 12:31 88 124/52 98 02/26/22 12:26 94 H 173/64 100 02/26/22 12:23 178/54 02/26/22 12:16 90 152/47 100 02/26/22 15:02 35.8 C L 91 H 121/50 02/26/22 14:30 101 H 182/55 02/26/22 12:01 36.2 C 87 16 115/57 100 12/19/22 11:46 83 115/43 91 02/26/22 11:31 86 109/42 90 02/26/22 11:25 85 96/75 86 L 02/26/22 14:12 88 166/50 02/26/22 13:57 97 H 175/60 02/26/22 13:42 95 H 149/57 02/26/22 13:27 95 H 186/60 02/26/22 13:12 93 H 177/56 02/26/22 12:57 90 164/52 02/26/22 12:43 88 131/53 02/26/22 12:34 88 124/52 02/26/22 12:24 90 174/64 02/26/22 12:13 91 H 157/47 02/26/22 11:58 87 115/57 02/26/22 11:44 92 H 115/43 02/26/22 11:32 36.3 C 88 109/42 Intake and Output 02/26/22 02/27/22 02/27/22 19:59 03:59 11:59 Intake Total 240 240 Output Total 1000 200 Balance -760 40 Intake: Oral 240 240 Output: Void Amount 200 Hemodialysis UF 1000 Other: Meal Dinner Percent of Meal Consumed 100% Feeding Ability Independent Weight 65.487 kg Laboratory Results - last 48 hr 02/26/22 02/26/22 02/26/22 13:50 13:50 13:50 WBC 8.2 RBC 2.75 L Hgb 8.2 L Hct 25.5 L MCV 92.7 MCH 29.8 MCHC 32.2 RDW 17.2 H Plt Count 275 MPV 9.4 Seg Neutrophils % 91 H Band Neutrophils % 1 Lymphocytes % 5 L Monocytes % (Manual) 1 Eosinophils % (Manual) 2 Platelet Estimate Normal RBC Morphology Abnormal A Anisocytosis 1+ A ESR 73 H Sodium 135 Potassium 3.7 Chloride 90 L Carbon Dioxide 33 H Anion Gap 12.0 BUN 18 Creatinine 2.9 H GFR Calculation 17 Glucose 117 H Calcium 8.1 L Phosphorus 2.3 L Albumin 3.2 PTH Intact 380.4 H Gentamicin Trough Vancomycin Trough Complement C3 Complement C4 02/26/22 02/26/22 13:50 13:50 WBC RBC Hgb Hct MCV MCH MCHC RDW Plt Count MPV Seg Neutrophils % Band Neutrophils % Lymphocytes % Monocytes % (Manual) Eosinophils % (Manual) Platelet Estimate RBC Morphology Anisocytosis ESR Sodium Potassium Chloride Carbon Dioxide Anion Gap BUN Creatinine GFR Calculation Glucose Calcium Phosphorus Albumin PTH Intact Gentamicin Trough 1.2 H Vancomycin Trough 10.1 Complement C3 75.4 L Complement C4 18.0 Blood cultures from 02/17/2022 were positive for CoNS Blood cultures from 02/22/2022 (3 sets) are no growth at 5 days Blood cultures 02/26/2022 drawn post HD No depressed complements Pertinent ROS: Sleeps a lot Additional PMFSH (Level 3 Only): N/A Constitutional Vitals: Vital Signs Temp Pulse Resp BP Pulse Ox O2 Del Method O2 Flow Rate 36.2 C 88 16 110/72 95 2 02/27/22 08:36 02/27/22 08:36 02/27/22 04:01 02/27/22 08:36 02/27/22 08:36 02/27/22 08:36 02/26/22 20:30 Period Temp Pulse Resp BP Sys/Stevens Pulse Ox O2 Del Method O2 Flow Rate Last 24 Hr 35.8 C-36.8 C 83-101 16-16 96-186/41-106 85-100 Nasal Cannula- Room Air 2 Intake and Output 02/26/22 02/27/22 02/27/22 19:59 03:59 11:59 Intake Total 240 240 Output Total 1000 200 Balance -760 40 Weight 65.487 kg Intake & Output: Intake & Output 02/26/22 02/27/22 02/27/22 19:59 03:59 11:59 Intake Total 240 240 Output Total 1000 200 Balance -760 40 Weight 65.487 kg Intake: Oral 240 240 Output: Void Amount 200 Hemodialysis UF 1000 Other: Meal Dinner Percent of Meal Consumed 100% Feeding Ability Independent General appearance: mild distress and thin Exam: sleeping but arousable Head Head exam: Present normocephalic Eye Eye exam: Present EOMI and PERRL Respiratory Respiratory exam: Present rhonchi Cardiovascular Cardiovascular exam: Present diastolic murmur, +S1, +S2 and systolic murmur GI/Abdominal GI/Abdominal exam: Present diminished bowel sounds Expanded Upper Extremity Exam Vascular: Present radial pulse and vascular compromise (Lower extremity with chronic changes) Neurological Exam Neurological exam: Present CN II-XII intact (Poor hearing (post CoVID infection)) Psychiatric Psychiatric exam: Present anxious Skin Skin exam: Present dry A/P Assessment and plan (1) 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 First noted in 11/2021 hospital admission but thought to be a "contaminant" until developed new murmurs in late Jan 2022 Current sensitivities show vancomycin and gentamicin to be effective but if unable to clear blood cultures will switch to daptomycin (4) Diastolic murmur: Status: Acute Comment: No measurements of vegetations available on TTE, at a facility that cannot do VERONICA... also it wont change initial treatment. (5) Anemia in end-stage renal disease: Status: Acute Comment: Minimize blood work and amp up SARAH therapy (6) ESRD (end stage renal disease) on dialysis: Status: Acute (7) Metabolic acidosis, NAG, bicarbonate losses: Status: Chronic Comment: GI bicarbonate losses from ileostomy High bicarbonate dialysate Narrative A/P Narrative: As outline on prior notes 6 weeks of post HD Daptomycin 750 mg on and 500 mg on /Sat Random blood testing of narcotics and amphetamines F/U VERONICA and CV surgery consult post 6 weeks[address] surgeon is Dr Jose Mirza. Plan of Treatment: As above Time Spent With Patient Time: Total time spent is greater than 50% in coordination of care (as documented) at patient's floor/unit and/or counseling patient:
== END 2022-02-27 11:40 | disposition home or self-care (01) | DRG 288 ==
LOC: ED 08:57 → ICU 02-23 11:45
PROVIDERS: ADMIT Internal Medicine; ATTEND Internal Medicine